=== PATIENT | female | born 1930 | race Caucasian/White ===

== ENCOUNTER → 2016-11-20 | Outpatient (CLI) | payer MEDICARE, BC, OTHER ==
--- NOTE | 2016-11-20 18:24 | CT ---
EXAMINATION TYPE: CT CervThorLumbar spine wo con DATE OF EXAM: 11/20/2016 5:31 PM COMPARISON: 09/18/2016 CT scan cervical spine HISTORY: Pt states of c-spine fx in July of 2016. C/O back pain. CT DLP: 1188.4 mGycm Automated exposure control for dose reduction was used. FINDINGS: Multiple axial sections were obtained from the level of the skull base to the S3 vertebral body with no contrast. There is some sclerosis in this C 2 vertebral body with minimal callus related to a healing nondispla marquis fracture of the base of the odontoid process. The skull base is intact. There is moderate narrowing of the disc spaces from C4 to C7 with spurring of the endplates. Facet monty ints show hypertrophic change in the cervical spine. There is osteopenia. The thoracic vertebra show no compression fracture. There is no evidence of thoracic paraspinal mass. The posterior elements are intact in the thoracic spine. There is ordinary mild facet arthropathy in the mid and lower thoracic spine. There is a mild thoracic dextro scoliosis and a compensatory mild thoracolumbar levoscoliosis. There is degenerative disc space narrowing throughout the lumbar spine with spurring of the endplates. I se e no compression fracture. There is multilevel hypertrophic lumbar facet arthropathy. The sacroiliac joints appear normal. CONCLUSION: Healing C2 fracture without change in position compared to old exam. Multilevel cervical spondylotic changes. Multilevel thoracic and lumbar spondylotic changes. Mild sco liotic deformity. No acute fracture seen. Osteopenia. No focal bone destruction seen. IMPRESSION:
== END | disposition home or self-care (01) ==
LOC: RADCTMAIN 17:03
PROVIDERS: ATTEND Family Medicine
DX: M54.5 Low back pain (principal); S12.001D Unspecified nondisplaced fracture of first cervical vertebra, subsequent encounter for fracture with routine healing; Z91.81 History of falling; S12.100D Unspecified displaced fracture of second cervical vertebra, subsequent encounter for fracture with routine healing; M85.80 Other specified disorders of bone density and structure, unspecified site
CPT/HCPCS: 72125; 72128; 72131

== ENCOUNTER → 2017-01-27 | Outpatient (CLI) | payer MEDICARE, BC, OTHER ==
--- NOTE | 2017-01-27 09:08 | CT ---
EXAMINATION TYPE: CT cervical spine wo con DATE OF EXAM: 01/27/2017 8:40 AM COMPARISON: CT cervical spine November 20, 2016. HISTORY: Patient complains of continued neck pain post fall with positive fracture in July 2016. CT DLP: 394 mGycm. Automated Exposure Control for Dose Reduction was Utilized. TECHNIQUE: CT scan of the cervical spine is obtained without contrast, axial images are obtained, sa gittal and coronal reformatted images are also reviewed. FINDINGS: Cervical spine is visualized in its entirety from C1 through upper thoracic levels, redemon strates straightened alignment without evidence of new acute fracture or dislocation. Prevertebral s oft tissue appears within normal limits. The C1-C2 articulation is unchanged on the coronal images. There is persistent sclerosis at base of odontoid consistent with healing or healed fracture. There i s continued diminished visualization of linear lucency consistent with healing progression. Vertebral body heights are maintained. There is moderate to severe disc space narrowing with moderate spurring at C4-C5 through C6-C7 levels. Small posterior disc herniation at C5-C6 and C6-C7 level are redemonstrated on axial and sagittal images and felt stable. Review of axial images shows small central disc protrusion and right-sided uncovertebral facet degene rative changes at C2-C3 level. Bilateral neural foramina are patent. Axial images at C3-C4 level show bilateral uncovertebral facet degenerative changes and posterior dis c herniation C3-C4 level on axial image 47. Mild to moderate bilateral neural foraminal narrowing is redemonstrated. Axial images at C4-C5 level show right-sided uncovertebral facet degenerative changes with posterior and marginal spurring and posterior disc herniation . There is stable moderate right greater than lef t neural foraminal narrowing at this level. Axial images at C5-C6 level shows central spur disc complex effacing anterior thecal sac with margina l spurring at C5-C6 level on axial image 57. Moderate bilateral neural foraminal narrowing at this le narda is redemonstrated. Axial images at C6-C7 level show posterior spur disc complex effacing anterior thecal sac. Mild to mo derate bilateral neural foraminal narrowing at this level is identified. Axial images at C7-T1 level show right-sided marginal spurring, bilateral neural foramina remain dobbs nt. Spinal canal is preserved. Lung apices remain clear. IMPRESSION: Healing progression of type II odontoid fracture. Alignment is stable. Multilevel degene rative changes in the cervical spine are seen as detailed above without significant change or progres evelio from most recent CT.
== END | disposition home or self-care (01) ==
LOC: RADCTMAIN 08:15
PROVIDERS: ATTEND Specialist
DX: S12.110D Anterior displaced Type II dens fracture, subsequent encounter for fracture with routine healing (principal); M47.812 Spondylosis without myelopathy or radiculopathy, cervical region
CPT/HCPCS: 72125

== ENCOUNTER 2017-07-20 13:21 | Inpatient (IN) | payer MEDICARE, BC, OTHER ==
--- NOTE | 2017-07-20 14:53 | XR ---
EXAMINATION TYPE: XR Hip RT and AP Pelvis DATE OF EXAM: 07/20/2017 COMPARISON: NONE HISTORY: Pain after fall injury. TECHNIQUE: A single AP view of the pelvis is obtained. Two views of the right hip are obtained. FINDINGS: Samish osseous structures are demineralized. There is acute minimally displaced intertrocha nteric fracture right proximal femur. No hip joint dislocation is seen. There is moderate axial joint space loss in both hips. Remainder of pelvis shows no additional acute fracture or dislocation. Sacroiliac joints are maintain ed. Surgical sutures and clips overlie the right lower quadrant. Numerous coils from ventral wall her saad repair overlie the lower abdomen and pelvis. IMPRESSION: There is acute comminuted minimally displaced intertrochanteric fracture right proximal femur. (Initial encounter closed type post traumatic fracture)
--- NOTE | 2017-07-20 14:55 | XR ---
EXAMINATION TYPE: XR chest 1V DATE OF EXAM: 07/20/2017 COMPARISON: 06/01/2012 HISTORY: Pain TECHNIQUE: Single frontal view of the chest is obtained. FINDINGS: Right-sided consolidation and pleural effusion seen with cardiomegaly and atherosclerotic change aorta. No pneumothorax. Underlying venous congestion not excluded. IMPRESSION: 1. Right lower lobe consolidation with bilateral small effusion. Correlate for pneumonia versus CHF.
[2017-07-20 15:00] LABS: CH 30.1; HCT 38.3 % (34.0-46.0); HDW 2.25; HGB 12.4 gm/dL (11.4-16.0); Lymphocytes % (A) 20 %; MCH 30.6 pg (25.0-35.0); MCHC 32.5 g/dL (31.0-37.0); MCV 94.3 fL (80.0-100.0); Mean Platelet Volume 6.6; Neutrophils % (A) 70 %; RBC 4.07 m/uL (3.80-5.40); RDW 13.8 % (11.5-15.5); WBC 8.2 k/uL (3.8-10.6); WBC (Perox) 8.47
[2017-07-20 15:01] LABS: Basophils % (A) 0 %; Eosinophils # (A) 0.3 k/uL (0-0.7); Eosinophils % (A) 3 %; Luc # (Auto) 0.14; Luc % (Auto) 2; Lymphocytes # (A) 1.6 k/uL (1.0-4.8); Monocytes # (A) 0.4 k/uL (0-1.0); Monocytes % (A) 5 %; Neutrophils # (A) 5.7 k/uL (1.3-7.7)
--- NOTE | 2017-07-20 15:02 | ED ---
General Adult HPI - General Stated complaint: Fall Time Seen by Provider: 07/20/17 13:29 Source: RN notes reviewed - History of Present Illness Initial comments: Patient 87-year-old female who presents emergency room today by EMS, the chief complaint of a fall that occurred just prior to arrival. She does admit that she was getting up to go into the kitchen. She states she was heading towards her walker when she lays gave out and she fell down onto the right side. She does not that she is on xeralto. She states she did hit her head did not lose consciousness. Does admit to pain to the right groin and hip area. She denies any other complaints or associated symptoms. Patient denies any recent fever, chills, shortness of breath, chest pain, back pain, abdominal pain, nausea or vomiting, numbness or tingling, dysuria or hematuria, constipation or diarrhea, headaches or visual changes, or any other complaints. - Related Data Home Medications Medication Instructions Recorded Confirmed Albuterol Inhaler [Ventolin Hfa 2 puff INHALATION Q4H PRN 07/20/17 07/20/17 Inhaler] Amantadine HCl [Symmetrel] 100 mg PO BID@0800,1200 07/20/17 07/20/17 Carbidopa/Levodopa [Sinemet 25-100 1 tab PO BID 07/20/17 07/20/17 mg] Darifenacin Hydrobromide [Enablex] 15 mg PO DAILY 07/20/17 07/20/17 Furosemide [Lasix] 40 mg PO DAILY 07/20/17 07/20/17 Glimepiride [Amaryl] 1 mg PO AC-BRKFST 07/20/17 07/20/17 HYDROcodone/APAP 7.5-325MG [[place] 1 tab PO Q8H PRN 07/20/17 07/20/17 7.5-325] Lactulose 10 - 20 gm PO BID PRN 07/20/17 07/20/17 Metoprolol Tartrate [Lopressor] 25 mg PO BID 07/20/17 07/20/17 Metoprolol Tartrate [Lopressor] 50 mg PO BID 07/20/17 07/20/17 Mupirocin [Mupirocin 2%] 1 applic TOPICAL TID 07/20/17 07/20/17 Nystatin 100,000Unit/gm Cream 1 applic TOPICAL BID 07/20/17 07/20/17 [Mycostatin Cream] Ondansetron [Zofran] 4 mg PO Q8HR PRN 07/20/17 07/20/17 Potassium Chloride [Klor-Con 20] 20 meq PO BID 07/20/17 07/20/17 Rivaroxaban [Xarelto] 15 mg PO DAILY 07/20/17 07/20/17 Allergies Allergy/AdvReac Type Severity Reaction Status Date / Time iodine Allergy Anaphylaxis Verified 07/20/17 14:38 Sulfa (Sulfonamide Allergy Anaphylaxis Verified 07/20/17 14:38 Antibiotics) Review of Systems ROS Statement: Those systems with pertinent positive or pertinent negative responses have been documented in the HPI. ROS Other: All systems not noted in ROS Statement are negative. Past Medical History Past Medical History: Coronary Artery Disease (CAD), Diabetes Mellitus, Hypertension Additional Past Medical History / Comment(s): parkinsons, colon ca and resection History of Any Multi-Drug Resistant Organisms: None Reported Additional Past Surgical History / Comment(s): colon resection, knee x 2 Past Psychological History: No Psychological Hx Reported Smoking Status: Never smoker Past Alcohol Use History: None Reported Past Drug Use History: None Reported General Exam - General Exam Comments Initial Comments: General: The patient is awake and alert, in no distress, and does not appear acutely ill. Eye: Pupils are equal, round and reactive to light, extra-ocular movements are intact. No nystagmus. There is normal conjunctiva bilaterally. No signs of icterus. Ears, nose, mouth and throat: There are moist mucous membranes and no oral lesions. Neck: The neck is supple, there is no tenderness or JVD. Cardiovascular: There is a regular rate and rhythm. No murmur, rub or gallop is appreciated. Respiratory: Lungs are clear to auscultation, respirations are non-labored, breath sounds are equal. No wheezes, stridor, rales, or rhonchi. Gastrointestinal: Soft, non-distended, non-tender abdomen without masses or organomegaly noted. There is no rebound or guarding present. No CVA tenderness. Bowel sounds are unremarkable. Musculoskeletal: Does have shortening rotation of the right leg. Does have tenderness over the lateral aspect of the right hip. Sensations are intact pulses equal bilateral 2+. Neurological: A&O x 3. CN II-XII intact, There are no obvious motor or sensory deficits. Coordination appears grossly intact. Speech is normal. Skin: Skin is warm and dry and no rashes or lesions are noted. Psychiatric: Cooperative, appropriate mood & affect, normal judgment. Medical Decision Making - Medical Decision Making Patient's x-ray reviewed does show evidence of a right-sided hip fracture. Patient's labs currently pending. Patient will be admitted. Patient was a patient of Dr. Mendoza. His chest x-ray shows possible effusion versus. Patient admits that she's recently placed on a water pill for leg swelling. She does believe that this swelling has improved. Patient's labs been reviewed no elevated white count. No fever. Chest x-ray findings patient be consistent with effusion. Patient will be admitted for hip fracture. - Lab Data Result diagrams: 07/20/17 14:45 07/20/17 14:45 Lab Results 07/20/17 07/20/17 07/20/17 Range/Units 14:45 14:45 14:45 WBC 8.2 (3.8-10.6) k/uL RBC 4.07 (3.80-5.40) m/uL Hgb 12.4 (11.4-16.0) gm/dL Hct 38.3 (34.0-46.0) % MCV 94.3 (80.0-100.0) fL MCH 30.6 (25.0-35.0) pg MCHC 32.5 (31.0-37.0) g/dL RDW 13.8 (11.5-15.5) % Plt Count 206 (150-450) k/uL Neutrophils % 70 % Lymphocytes % 20 % Monocytes % 5 % Eosinophils % 3 % Basophils % 0 % Neutrophils # 5.7 (1.3-7.7) k/uL Lymphocytes # 1.6 (1.0-4.8) k/uL Monocytes # 0.4 (0-1.0) k/uL Eosinophils # 0.3 (0-0.7) k/uL Basophils # 0.0 (0-0.2) k/uL PT 13.2 H (9.0-12.0) sec INR 1.3 H (<1.2) APTT 26.9 (22.0-30.0) sec Sodium 139 (137-145) mmol/L Potassium 4.2 (3.5-5.1) mmol/L Chloride 102 (98-107) mmol/L Carbon Dioxide 26 (22-30) mmol/L Anion Gap 11 mmol/L BUN 31 H (7-17) mg/dL Creatinine 1.30 H (0.52-1.04) mg/dL Est GFR (MDRD) Af Amer 47 (>60 ml/min/1.73 sqM) Est GFR (MDRD) Non-Af 39 (>60 ml/min/1.73 sqM) Glucose 104 H (74-99) mg/dL Calcium 8.9 (8.4-10.2) mg/dL Total Bilirubin 1.0 (0.2-1.3) mg/dL AST 21 (14-36) U/L ALT 20 (9-52) U/L Alkaline Phosphatase 81 (38-126) U/L Total Protein 6.6 (6.3-8.2) g/dL Albumin 3.8 (3.5-5.0) g/dL Disposition Clinical Impression: Hip fracture Disposition: ADMITTED IP TO THIS HOSP Condition: Stable Referrals: Rafael Douglass III, MD [Primary Care Provider] - 1-2 days Time of Disposition: 15:38
[2017-07-20 15:08] LABS: INR 1.3 (<1.2); Partial Thromboplastin Time 26.9 sec (22.0-30.0); Prothrombin Time 13.2 sec (9.0-12.0)
--- NOTE | 2017-07-20 15:17 | CT ---
EXAMINATION TYPE: CT brain wo con DATE OF EXAM: 07/20/2017 COMPARISON: CT brain 09/18/2016 HISTORY: Fall injury today. CT DLP: 1046 mGycm Automated exposure control for dose reduction was used. Helical acquisition through the brain. FINDINGS: No significant interval change. There is no hemorrhage or hydrocephalus. Cerebral vascular calcificat ions are present. Brain density is stable. Calvarium is intact. Minimal inflammatory change present r ight maxillary sinus. Mastoid air cells are well aerated. IMPRESSION: STABLE EXAM, NO ACUTE ABNORMALITY.
[2017-07-20 15:26] LABS: Potassium 4.2 mmol/L (3.5-5.1)
[2017-07-20 15:27] LABS: Calcium 8.9 mg/dL (8.4-10.2); Total Protein 6.6 g/dL (6.3-8.2)
[2017-07-20] MEDS ORDERED: ONDANSETRON 4 MG/2 ML VIAL IVP PRN (15:58)
[2017-07-20] MEDS ORDERED: NALOXONE 0.4 MG/ML 1 ML VIAL IV PRN (15:58)
[2017-07-20] MEDS: HYDROmorphone 1 MG/ML 1 ML SYRINGE IV PRN (16:35)
[2017-07-20 18:03] LABS: Appearance,Urine Clear (Clear); Bilirubin,Urine Negative (Negative); Glucose,Urine (UA) Negative (Negative); Ketones,Urine Negative (Negative); Leukocyte Esterase,Urine Negative (Negative); Nitrite,Urine Negative (Negative); Protein,Urine Negative (Negative); Specific Gravity,Urine 1.006 (1.001-1.035); UA Billing (MACRO vs. MICRO) CHEM; Urobilinogen,Urine <2.0 mg/dL (<2.0)
[2017-07-20 19:57] LABS: Glucose,Whole Blood 96 mg/dL (75-99)
[2017-07-21] MEDS: HYDROmorphone 1 MG/ML 1 ML SYRINGE IV PRN ×2 (07:07→12:08)
[2017-07-21 08:09] LABS: Glucose,Whole Blood 114 mg/dL (75-99)
[2017-07-21 08:23] LABS: Basophils % (A) 0 %; CH 30.6; CHCM 32.4; Eosinophils # (A) 0.1 k/uL (0-0.7); Eosinophils % (A) 1 %; HCT 33.4 % (34.0-46.0); HDW 2.27; HGB 11.2 gm/dL (11.4-16.0); Luc # (Auto) 0.19; Luc % (Auto) 3; Lymphocytes # (A) 1.3 k/uL (1.0-4.8); Lymphocytes % (A) 18 %; MCH 31.8 pg (25.0-35.0); MCHC 33.5 g/dL (31.0-37.0); MCV 95.2 fL (80.0-100.0); Mean Platelet Volume 7.3; Monocytes # (A) 0.5 k/uL (0-1.0); Monocytes % (A) 7 %; Neutrophils # (A) 5.1 k/uL (1.3-7.7); Neutrophils % (A) 71 %; RBC 3.51 m/uL (3.80-5.40); RDW 14.6 % (11.5-15.5); WBC 7.2 k/uL (3.8-10.6); WBC (Perox) 7.45
[2017-07-21 08:29] LABS: Calcium 8.7 mg/dL (8.4-10.2); Potassium 4.6 mmol/L (3.5-5.1); Total Bilirubin 0.9 mg/dL (0.2-1.3); Total Protein 5.8 g/dL (6.3-8.2)
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
--- NOTE | 2017-07-21 08:39 | XR ---
EXAMINATION TYPE: XR chest 1V portable DATE OF EXAM: 07/21/2017 Comparison: 07/20/2017 Clinical History: 87-year-old female pre-op for hip surgery Findings: Heart is upper limits of normal in size. Dextroconvex scoliosis. Atherosclerotic arch calcifications. Mild diffuse interstitial and vascular prominence. Continued small to moderate right pleural effusio n with right basilar opacity. No significant change. Impression: Continued small to moderate right pleural effusion with adjacent right basilar atelectasis and/or inf iltrate. No significant change. Correlate for possible CHF as an etiology versus underlying pneumonia .
[2017-07-21] MEDS ORDERED: IPRATROPIUM-ALBUTEROL 3 ML NEB INHALATION PRN (12:16)
[2017-07-21] MEDS: SODIUM CHLORIDE 0.9% 1,000 ML IV SCH (12:26)
[2017-07-21 12:37] LABS: Hemoglobin A1C 6.1 % (4.2-6.1)
[2017-07-21] MEDS: INSULIN LISPRO (humaLOG) 300 UNIT/3 ML VIAL SQ SCH ×3 (12:41→22:20)
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
[2017-07-21] MEDS: METOPROLOL TARTRATE 50 MG TAB PO SCH ×2 (13:23→22:32)
[2017-07-21] MEDS: METOPROLOL TARTRATE 25 MG TAB PO SCH ×2 (13:23→22:32)
[2017-07-21] MEDS: IPRATROPIUM-ALBUTEROL 3 ML NEB INHALATION SCH ×3 (15:35→19:42)
[2017-07-21] MEDS: MUPIROCIN 2% OINT 22 GM TUBE TOPICAL SCH ×2 (16:09→22:32)
[2017-07-21] MEDS ORDERED: LACTATED RINGERS 1,000 ML IV ONE (16:11)
[2017-07-21 16:17] LABS: Glucose,Whole Blood 83 mg/dL (75-99)
[2017-07-21] MEDS ORDERED: NALOXONE 0.4 MG/ML 1 ML VIAL IV PRN (16:36)
[2017-07-21] MEDS ORDERED: ONDANSETRON 4 MG/2 ML VIAL IVP PRN (16:36)
[2017-07-21] MEDS ORDERED: HYDROmorphone 1 MG/ML 1 ML SYRINGE IVP PRN ×3 (16:36)
[2017-07-21] MEDS ORDERED: hydrOXYzine PAMOATE 25 MG CAP PO PRN (16:36)
[2017-07-21] MEDS ORDERED: DIAZEPAM 5 MG TAB PO PRN ×2 (16:36)
[2017-07-21] MEDS ORDERED: MAGNESIUM HYDROXIDE 2,400 MG/10 ML CUP PO PRN (16:36)
[2017-07-21] MEDS ORDERED: HYDROcodone/APAP 5-325MG 1 EACH TAB PO PRN (16:36)
[2017-07-21 16:44] VITALS: BMI 35.9
[2017-07-21] MEDS ORDERED: PHENYLEPHRINE-0.9% NACL SYG 1 MG/10 ML SYRINGE ONE (16:44)
[2017-07-21] MEDS ORDERED: PROPOFOL 10 MG/ML 20 ML VIAL IV ONE (16:44)
[2017-07-21] MEDS: ceFAZolin 2 GM in SODIUM CHLORIDE 0.9% 100 ML IVPB SCH (16:44)
[2017-07-21] MEDS ORDERED: SUCCINYLCHOLINE CHLORIDE 100 MG/5 ML SYR IV ONE (16:44)
[2017-07-21] MEDS ORDERED: LIDOCAINE 1% INJ 10MG/ML (20 ML MDV) ONE (16:44)
[2017-07-21] MEDS ORDERED: fentaNYL (PF) 50 MCG/ML 2 ML AMP ONE (16:44)
[2017-07-21] MEDS ORDERED: ceFAZolin 1,000 MG in SODIUM CHLORIDE 0.9% 1,000 ML IRRIGATION ONE (17:31)
--- NOTE | 2017-07-21 17:57 | P.OP ---
Date of Procedure: 07/21/17 Preoperative Diagnosis: 4 part intratrochanteric fracture right hip Postoperative Diagnosis: 4 part intratrochanteric fracture right hip Procedure(s) Performed: Close reduction and intramedullary hip screw fixation of the right hip Implants: [employer] intertan nail 125, 11.5 mm x 18 cm. [employer] Intertan integrated interlocking lag screw, 100 mm lag screw, 95 mm compression screw. [employer] L-P screw, 5.0 mm x 35 mm. Anesthesia: GETA Surgeon: Brooks Kraft Plug Assembler #1: Gill Brown Estimated Blood Loss (ml): 200 Pathology: none sent Condition: stable Disposition: PACU Indications for Procedure: This is an 87-year-old female that slipped and fell at home. X-rays demonstrated a four-part intertrochanteric fracture of her right hip. After discussing the surgical and nonsurgical treatment options with her and her family at length, I recommended a closed reduction with intramedullary hip screw fixation of the right hip. Consent was obtained. Operative Findings: The operative findings are consistent with a four-part intertrochanteric fracture of the right hip. Description of Procedure: The patient was seen in the preoperative area, consent was reviewed, and the operative site was marked with a skin marker. The patient was brought to the operating room and placed on the operating room table. Anesthesia was administered by the anesthesia department. 2 g of Ancef were administered intravenously. The patient was placed supine on the fracture table with the fractured extremity in traction boot. His other extremity was placed in a well leg muniz and his bony prominences were padded. A universal timeout was then performed which confirmed the patient's name, surgical site, ALLERGIES, and consent. Fracture reduction was performed with traction and adduction maneuver which was confirmed with fluoroscopy. After reduction was performed, his extremity was then prepped and draped in the usual sterile fashion. Utilizing fluoroscopy to identify the tip of the greater trochanter, a 3 cm incision was made just proximal to the greater trochanter. Utilizing a curved awl, the starting hole was created at the tip of the greater trochanter and centralized in the AP plane. These locations were confirmed by fluoroscopy. Guidewire was then inserted down the medullary canal. Sequentially reaming of the femur was performed to 13 mm distally and 17 mm proximally. After reaming, appropriate size nail was inserted over the guidewire. The nail was inserted to the appropriate depth and the guidewire was removed. The lag screw targeting device was placed in the jig and a small skin incision was made and the targeting guide was placed down to bone. Utilizing the distally threaded guidewire, the guidewire was placed in the appropriate position in the femoral head, both anterior, posterior and mediolateral. Next, the drill for the second screw was then placed through the guide and drilled to the appropriate depth. The guidewire was measured and the appropriate depth was then reamed. The final size screw was placed to the appropriate depth. Traction was released and the fracture site was compressed with the aid of the second screw. The proximal drill guide was then removed and the distal drill guide was then inserted in the jig. Skin incision was made down to bone and the distal drill guide was then placed. Distal hole was then drilled and measured to the appropriate depth. Distal screw was then placed. The entire jig was then removed and final fluoroscopic x-rays were obtained. The wounds were then irrigated copiously with saline solution. Fascia was closed with 0-Vicryl. Subcutaneous tissues were closed with 2-0 Vicryl and the skin was closed with saritha. Sterile dressings were applied. The patient was transported to the recovery room in stable condition. The chiropractic assistant DYLAN Angel was required due the complexity of the surgery and the need for skilled manager surgical.
[2017-07-21] MEDS: HYDROmorphone 1 MG/ML 1 ML SYRINGE IVP ONE ×2 (18:24→18:56)
[2017-07-21 20:27] LABS: Glucose,Whole Blood 112 mg/dL (75-99)
[2017-07-21 20:58] LABS: Basophils % (A) 0 %; CH 30.1; CHCM 31.2; Eosinophils # (A) 0.1 k/uL (0-0.7); Eosinophils % (A) 1 %; HCT 32.1 % (34.0-46.0); HDW 2.27; HGB 10.4 gm/dL (11.4-16.0); Luc # (Auto) 0.23; Luc % (Auto) 2; Lymphocytes # (A) 1.6 k/uL (1.0-4.8); Lymphocytes % (A) 14 %; MCH 31.3 pg (25.0-35.0); MCHC 32.3 g/dL (31.0-37.0); MCV 96.9 fL (80.0-100.0); Mean Platelet Volume 6.8; Monocytes # (A) 0.7 k/uL (0-1.0); Monocytes % (A) 6 %; Neutrophils # (A) 8.6 k/uL (1.3-7.7); Neutrophils % (A) 77 %; RBC 3.32 m/uL (3.80-5.40); RDW 13.9 % (11.5-15.5); WBC 11.2 k/uL (3.8-10.6)
[2017-07-21] MEDS: NYSTATIN 100,000UNIT/GM CREAM 30 GM TUBE TOPICAL SCH (22:32)
[2017-07-21] MEDS: CARBIDOPA-LEVODOPA 25-100 MG 1 EACH TAB PO SCH (22:32)
[2017-07-21] MEDS: SENNOSIDES-DOCUSATE SODIUM 1 EACH TAB PO SCH (22:33)
[2017-07-22] MEDS: SODIUM CHLORIDE 0.9% 1,000 ML IV SCH (00:55)
--- NOTE | 2017-07-22 05:52 | FL ---
EXAMINATION TYPE: FL guidance operating room, XR Hip Complete RT DATE OF EXAM: 07/21/2017 CLINICAL HISTORY: Right hip fracture TECHNIQUE: Fluoroscopy.. Intraoperative limited views right hip. COMPARISON: Pelvic and right hip x-ray from yesterday.. FINDINGS: Fluoroscopic guidance was provided during open reduction internal fixation procedure perfo rmed by Dr. Kraft. A total of 1 minute 3 seconds of fluoroscopic time was utilized during the pro cedure and 2 spot intraoperative images are acquired. Intraoperative images acquired show placement of intramedullary sue with distal transverse fixating s crew and single larger femoral neck fixating screws through intertrochanteric fracture right proxima l femur. Satisfactory alignment is seen after reduction and fixation on intraoperative images frederick ahmadi IMPRESSION: As Above.
[2017-07-22 07:13] LABS: Glucose,Whole Blood 84 mg/dL (75-99)
[2017-07-22 08:02] LABS: Basophils % (A) 0 %; CH 30.8; CHCM 32.4; Eosinophils % (A) 0 %; HDW 2.36; HGB 9.2 gm/dL (11.4-16.0); Luc # (Auto) 0.22; Luc % (Auto) 3; Lymphocytes # (A) 1.3 k/uL (1.0-4.8); Lymphocytes % (A) 16 %; MCH 30.4 pg (25.0-35.0); MCHC 31.7 g/dL (31.0-37.0); MCV 95.7 fL (80.0-100.0); Mean Platelet Volume 7.3; Monocytes # (A) 0.6 k/uL (0-1.0); Monocytes % (A) 8 %; Neutrophils # (A) 5.7 k/uL (1.3-7.7); Neutrophils % (A) 73 %; RBC 3.02 m/uL (3.80-5.40); WBC 7.8 k/uL (3.8-10.6); WBC (Perox) 8.55
[2017-07-22 08:18] LABS: Calcium 8.5 mg/dL (8.4-10.2); Potassium 4.4 mmol/L (3.5-5.1)
[2017-07-22] MEDS: IPRATROPIUM-ALBUTEROL 3 ML NEB INHALATION SCH ×4 (08:42→19:38)
[2017-07-22] MEDS: INSULIN LISPRO (humaLOG) 300 UNIT/3 ML VIAL SQ SCH ×4 (08:48→21:33)
[2017-07-22] MEDS: METOPROLOL TARTRATE 50 MG TAB PO SCH ×2 (08:49→21:33)
[2017-07-22] MEDS: METOPROLOL TARTRATE 25 MG TAB PO SCH ×2 (08:49→21:33)
[2017-07-22] MEDS: NYSTATIN 100,000UNIT/GM CREAM 30 GM TUBE TOPICAL SCH ×2 (08:50→21:34)
[2017-07-22] MEDS: CARBIDOPA-LEVODOPA 25-100 MG 1 EACH TAB PO SCH ×2 (08:50→21:33)
[2017-07-22] MEDS: FUROSEMIDE 10 MG/ML 4 ML VIAL IV SCH (08:50)
[2017-07-22] MEDS: MUPIROCIN 2% OINT 22 GM TUBE TOPICAL SCH ×3 (08:50→21:34)
[2017-07-22] MEDS: AMANTADINE HCL 100 MG CAP PO SCH ×2 (08:51→13:39)
--- NOTE | 2017-07-22 09:05 | P.PN ---
Subjective Principal diagnosis: Right intertrochanteric hip fracture, status post closed reduction an intramedullary hip screw fixation This is an 87-year-old female who sustained a right intertrochanteric hip fracture on 07/20/2017. Patient is status post closed reduction an intramedullary hip screw fixation. This is postoperative day #1. Patient states she has some soreness to the right hip. Patient has not been out of bed yet. Patient denies any numbness, weakness, tingling, pain, fever/chills. Objective - Vital Signs Vital signs: Vital Signs Temp 99.3 F 07/22/17 07:24 Pulse 90 07/22/17 08:56 Resp 18 07/22/17 07:24 BP 123/59 07/22/17 07:24 Pulse Ox 92 L 07/22/17 08:46 Intake & Output 07/21/17 07/22/17 07/22/17 18:59 06:59 18:59 Intake Total 826 155 Output Total 400 340 Balance 426 -185 Weight 83.461 kg 88 kg Intake: IV 751 5 Intake, IV Titration 75 Amount Sodium Chloride 0.9% 1, 75 000 ml @ 75 mls/hr IV . [id number] [facility] Rx#:[id number] Oral 150 Output: Urine 200 340 Estimated Blood Loss 200 Other: Voiding Method Indwelling Catheter Indwelling Catheter - Exam Patient is alert and oriented 3 and is in no acute distress. On exam of the right lower extremity incisions are clean, dry and intact. There is mild drainage from the incisions. Calf is soft and nontender. Patient has full foot and ankle motion. Neurovascular status to the right lower extremity is intact. - Labs CBC & Chem 7: 07/22/17 07:27 07/22/17 07:27 Labs: Abnormal Lab Results - Last 24 Hours (Table) 07/21/17 07/21/17 07/22/17 Range/Units 20:25 20:47 07:27 WBC 11.2 H (3.8-10.6) k/uL RBC 3.32 L 3.02 L (3.80-5.40) m/uL Hgb 10.4 L 9.2 L (11.4-16.0) gm/dL Hct 32.1 L 29.0 L (34.0-46.0) % Neutrophils # 8.6 H (1.3-7.7) k/uL Sodium (137-145) mmol/L BUN (7-17) mg/dL Creatinine (0.52-1.04) mg/dL POC Glucose (mg/dL) 112 H (75-99) mg/dL 07/22/17 Range/Units 07:27 WBC (3.8-10.6) k/uL RBC (3.80-5.40) m/uL Hgb (11.4-16.0) gm/dL Hct (34.0-46.0) % Neutrophils # (1.3-7.7) k/uL Sodium 136 L (137-145) mmol/L BUN 35 H (7-17) mg/dL Creatinine 1.22 H (0.52-1.04) mg/dL POC Glucose (mg/dL) (75-99) mg/dL Assessment and Plan (1) Intertrochanteric fracture of right hip Status: Acute (2) Status post hip surgery Status: Acute Plan: #1. Toe-touch weightbearing to the right lower extremity with a walker. #2. Continue routine postoperative care #3. Daily dressing changes. #4. Continue anticoagulation. #5. Will continue to follow the patient closely. Anticipate discharge to rehab in the next couple of days.
[2017-07-22] MEDS: ceFAZolin 2 GM in SODIUM CHLORIDE 0.9% 100 ML IVPB SCH (10:00)
--- NOTE | 2017-07-22 11:19 | P.PN ---
Subjective Patient was admitted for right hip fracture, sepsis and underwent surgery patient had pulmonary edema as today because of which patient is on IV Lasix at this time. We will obtain a chest x-ray today. Patient is excessively sleepy because of diazepam instructed to nursing staff to avoid narcotic medications since did will use tramadol for pain he cannot use other nonsteroidal anti-inflammatory medications because of borderline kidney function. Which actually improved compared to yesterday. Objective - Vital Signs Vital signs: Vital Signs Temp 99.3 F 07/22/17 07:24 Pulse 90 07/22/17 08:56 Resp 18 07/22/17 07:24 BP 123/59 07/22/17 07:24 Pulse Ox 92 L 07/22/17 08:46 Intake & Output 07/21/17 07/22/17 07/22/17 18:59 06:59 18:59 Intake Total 826 155 Output Total 400 340 Balance 426 -185 Weight 83.461 kg 88 kg Intake: IV 751 5 Intake, IV Titration 75 Amount Sodium Chloride 0.9% 1, 75 000 ml @ 75 mls/hr IV . [id number] [facility] Rx#:[id number] Oral 150 Output: Urine 200 340 Estimated Blood Loss 200 Other: Voiding Method Indwelling Catheter Indwelling Catheter Indwelling Catheter - Exam GENERAL: The patient is alert and oriented x3, not in any acute distress. Well developed, well nourished. HEENT: Pupils are round and equally reacting to light. EOMI. No scleral icterus. No conjunctival pallor. Normocephalic, atraumatic. No pharyngeal erythema. No thyromegaly. CARDIOVASCULAR: S1 and S2 present. No murmurs, rubs, or gallops. Patient does have minimally elevated JVD PULMONARY: Chest is clear to auscultation, no wheezing or crackles. ABDOMEN: Soft, nontender, nondistended, normoactive bowel sounds. No palpable organomegaly. MUSCULOSKELETAL: Deferred to orthopedic surgery EXTREMITIES: No cyanosis, clubbing, or pedal edema. NEUROLOGICAL: Gross neurological examination did not reveal any focal deficits. SKIN: No rashes. - Labs CBC & Chem 7: 07/22/17 07:27 07/22/17 07:27 Labs: Abnormal Lab Results - Last 24 Hours (Table) 07/21/17 07/21/17 07/22/17 Range/Units 20:25 20:47 07:27 WBC 11.2 H (3.8-10.6) k/uL RBC 3.32 L 3.02 L (3.80-5.40) m/uL Hgb 10.4 L 9.2 L (11.4-16.0) gm/dL Hct 32.1 L 29.0 L (34.0-46.0) % Neutrophils # 8.6 H (1.3-7.7) k/uL Sodium (137-145) mmol/L BUN (7-17) mg/dL Creatinine (0.52-1.04) mg/dL POC Glucose (mg/dL) 112 H (75-99) mg/dL 07/22/17 Range/Units 07:27 WBC (3.8-10.6) k/uL RBC (3.80-5.40) m/uL Hgb (11.4-16.0) gm/dL Hct (34.0-46.0) % Neutrophils # (1.3-7.7) k/uL Sodium 136 L (137-145) mmol/L BUN 35 H (7-17) mg/dL Creatinine 1.22 H (0.52-1.04) mg/dL POC Glucose (mg/dL) (75-99) mg/dL Assessment and Plan Plan: #1 postoperative day 1 right hip surgery. Will use tramadol for pain to avoid opiate and algesia. #2 congestive heart failure: Appears to have improved a little bit will often a chest x-ray, continue with IV Lasix daily #3 atrial fibrillation: Rate controlled patient's rate control medications need to be continued anti-correlation was reinitiated today #4 coronary artery disease next #5 asthma, chronic and not in acute exacerbation #6 diabetes with us type II hold off oral hyperglycemic agents use sliding scale insulin #7 multiple falls in the past patient will need PT and OT evaluation most probably will need subacute rehabitation at the time of discharge
[2017-07-22 12:26] LABS: Glucose,Whole Blood 152 mg/dL (75-99)
[2017-07-22] MEDS: traMADol 50 MG TAB PO PRN ×2 (13:38→21:38)
[2017-07-22 17:17] LABS: Glucose,Whole Blood 187 mg/dL (75-99)
[2017-07-22] MEDS: RIVAROXABAN 15 MG TAB PO SCH (17:43)
[2017-07-22 20:34] LABS: Glucose,Whole Blood 203 mg/dL (75-99)
[2017-07-22] MEDS: SENNOSIDES-DOCUSATE SODIUM 1 EACH TAB PO SCH (21:33)
[2017-07-23 07:13] LABS: Glucose,Whole Blood 155 mg/dL (75-99)
[2017-07-23] MEDS: HYDROcodone/APAP 5-325MG 1 EACH TAB PO PRN ×2 (07:38→13:47)
[2017-07-23] MEDS: INSULIN LISPRO (humaLOG) 300 UNIT/3 ML VIAL SQ SCH ×4 (07:40→20:31)
[2017-07-23] MEDS: CARBIDOPA-LEVODOPA 25-100 MG 1 EACH TAB PO SCH ×2 (07:41→20:31)
[2017-07-23] MEDS: FUROSEMIDE 10 MG/ML 4 ML VIAL IV SCH (07:41)
[2017-07-23] MEDS: METOPROLOL TARTRATE 25 MG TAB PO SCH ×2 (07:41→20:34)
[2017-07-23] MEDS: AMANTADINE HCL 100 MG CAP PO SCH ×2 (07:41→12:17)
[2017-07-23] MEDS: METOPROLOL TARTRATE 50 MG TAB PO SCH ×2 (07:42→20:32)
[2017-07-23] MEDS: MUPIROCIN 2% OINT 22 GM TUBE TOPICAL SCH ×3 (07:42→20:32)
[2017-07-23] MEDS: NYSTATIN 100,000UNIT/GM CREAM 30 GM TUBE TOPICAL SCH ×2 (07:43→22:17)
[2017-07-23 07:51] LABS: CH 30.9; CHCM 32.1; HCT 26.3 % (34.0-46.0); HDW 2.34; HGB 8.3 gm/dL (11.4-16.0); MCH 30.6 pg (25.0-35.0); MCHC 31.7 g/dL (31.0-37.0); MCV 96.7 fL (80.0-100.0); Mean Platelet Volume 7.6; RBC 2.72 m/uL (3.80-5.40); RDW 14.9 % (11.5-15.5); WBC 8.6 k/uL (3.8-10.6)
[2017-07-23 08:19] LABS: Calcium 8.2 mg/dL (8.4-10.2); Potassium 4.6 mmol/L (3.5-5.1)
--- NOTE | 2017-07-23 08:30 | P.PN ---
Subjective Principal diagnosis: Right intertrochanteric hip fracture, status post closed reduction an intramedullary hip screw fixation This is an 87-year-old female who sustained a right intertrochanteric hip fracture on 07/20/2017. Patient is status post closed reduction an intramedullary hip screw fixation. This is postoperative day #2. Patient states the right hip is sore, but her pain is controlled. Patient states she was up in a chair yesterday with physical therapy. Patient denies any numbness, weakness, tingling, pain, fever/chills. Objective - Vital Signs Vital signs: Vital Signs Temp 97.8 F 07/22/17 21:22 Pulse 86 07/23/17 07:18 Resp 18 07/23/17 07:18 BP 97/57 07/23/17 07:18 Pulse Ox 95 07/22/17 21:22 Intake & Output 07/22/17 07/23/17 07/23/17 18:59 06:59 18:59 Intake Total 550 Output Total 300 Balance 250 Weight 91.5 kg Intake: Oral 550 Output: Urine 300 Uretheral ([place]) 300 Other: Voiding Method Indwelling Catheter Indwelling Catheter # Voids 450 # Bowel Movements 1 - Exam Patient is alert and oriented 3 and is in no acute distress. On exam of the right lower extremity incisions are clean, dry and intact. There is no drainage from the incisions. Mild soft tissue swelling to the right thigh, but compartments are soft. Calf is soft and nontender. Patient has good foot and ankle motion. Neurovascular status to the right lower extremity is intact. Capillary refill is normal at less than 2 seconds. - Labs CBC & Chem 7: 07/23/17 07:17 07/23/17 07:17 Labs: Abnormal Lab Results - Last 24 Hours (Table) 07/22/17 07/22/17 07/22/17 Range/Units 11:28 17:14 20:32 RBC (3.80-5.40) m/uL Hgb (11.4-16.0) gm/dL Hct (34.0-46.0) % Sodium (137-145) mmol/L BUN (7-17) mg/dL Creatinine (0.52-1.04) mg/dL POC Glucose (mg/dL) 152 H 187 H 203 H (75-99) mg/dL Calcium (8.4-10.2) mg/dL 07/23/17 07/23/17 07/23/17 Range/Units 07:12 07:17 07:17 RBC 2.72 L (3.80-5.40) m/uL Hgb 8.3 L (11.4-16.0) gm/dL Hct 26.3 L (34.0-46.0) % Sodium 133 L (137-145) mmol/L BUN 39 H (7-17) mg/dL Creatinine 1.13 H (0.52-1.04) mg/dL POC Glucose (mg/dL) 155 H (75-99) mg/dL Calcium 8.2 L (8.4-10.2) mg/dL Assessment and Plan (1) Intertrochanteric fracture of right hip Status: Acute (2) Status post hip surgery Status: Acute Plan: #1. Toe-touch weightbearing to the right lower extremity with a walker. #2. Continue routine postoperative care #3. Daily dressing changes. #4. Continue anticoagulation. #5. Will continue to follow the patient closely. Anticipate discharge to rehab when medically stable.
[2017-07-23] MEDS: IPRATROPIUM-ALBUTEROL 3 ML NEB INHALATION SCH ×4 (09:05→21:10)
--- NOTE | 2017-07-23 10:16 | XR ---
EXAMINATION TYPE: XR chest 1V portable DATE OF EXAM: 07/23/2017 COMPARISON: 07/21/2017 HISTORY: Congestive heart failure follow-up TECHNIQUE: Single frontal view of the chest is obtained. FINDINGS: Moderate layering right pleural effusion and small left pleural effusion with gradient eff ect and bibasilar associated airspace disease are noted. Heart is again enlarged. Previously seen dif fuse interstitial prominence is unchanged, mild in degree. Degenerative changes of the thoracic spine and acromioclavicular joint on the right are noted. IMPRESSION: Similar exam to the prior of 07/21/2017 with moderate right and small left pleural effusi ons, associated bibasilar airspace disease that is likely atelectasis, and mild ulnar vascular conges tion. Findings may be on the basis of congestive heart failure as there is redemonstration of cardiom egaly.
[2017-07-23 11:16] LABS: Glucose,Whole Blood 156 mg/dL (75-99)
[2017-07-23 17:10] LABS: Glucose,Whole Blood 173 mg/dL (75-99)
[2017-07-23 17:11] LABS: Basophils % (A) 0 %; CH 29.8; CHCM 31.3; Eosinophils # (A) 0.4 k/uL (0-0.7); Eosinophils % (A) 5 %; HCT 25.9 % (34.0-46.0); HDW 2.35; HGB 8.4 gm/dL (11.4-16.0); Luc # (Auto) 0.23; Luc % (Auto) 3; Lymphocytes # (A) 1.3 k/uL (1.0-4.8); Lymphocytes % (A) 18 %; MCHC 32.3 g/dL (31.0-37.0); MCV 95.8 fL (80.0-100.0); Mean Platelet Volume 7.1; Monocytes # (A) 0.6 k/uL (0-1.0); Monocytes % (A) 9 %; Neutrophils # (A) 4.6 k/uL (1.3-7.7); Neutrophils % (A) 65 %; RBC 2.71 m/uL (3.80-5.40); RDW 14.1 % (11.5-15.5); WBC 7.1 k/uL (3.8-10.6); WBC (Perox) 7.25
[2017-07-23] MEDS: RIVAROXABAN 15 MG TAB PO SCH (17:48)
--- NOTE | 2017-07-23 19:06 | P.PN ---
Subjective Progress note being dictated for Dr. Kirk Interval history:Patient was admitted for right hip fracture, sepsis and underwent surgery patient had pulmonary edema as today because of which patient is on IV Lasix at this time. Patient is excessively sleepy because of diazepam instructed to nursing staff to avoid narcotic medications since did will use tramadol for pain he cannot use other nonsteroidal anti-inflammatory medications because of borderline kidney function. Which actually improved compared to yesterday. 07/23/2017 chest x-ray reporting moderate right and small left pleural effusions , atelectasis and mild vascular congestion/CHF similar to prior x-ray. Continues diuresing on Lasix IV push. Incentive spirometer up to 750. T-max 99.2. Bowel movement yesterday. Good diet intake with no nausea vomiting. PT/ OT. Objective - Vital Signs Vital signs: Vital Signs Temp 98.6 F 07/23/17 07:18 Pulse 84 07/23/17 09:17 Resp 18 07/23/17 07:18 BP 97/57 07/23/17 07:18 Pulse Ox 95 07/23/17 09:07 Intake & Output 07/22/17 07/23/17 07/23/17 18:59 06:59 18:59 Intake Total 550 Output Total 300 Balance 250 Weight 91.5 kg Intake: Oral 550 Output: Urine 300 Uretheral (Greco) 300 Other: Voiding Method Indwelling Catheter Indwelling Catheter # Voids 450 # Bowel Movements 1 - Exam GENERAL: The patient is alert and oriented x3, not in any acute distress. Well developed, well nourished. Sitting up in chair. HEENT: Pupils are round and equally reacting to light. EOMI. No scleral icterus. No conjunctival pallor. Normocephalic, atraumatic. No pharyngeal erythema. No thyromegaly. CARDIOVASCULAR: S1 and S2 present. No murmurs, rubs, or gallops. Patient does have minimally elevated JVD PULMONARY: Chest is clear to auscultation, no wheezing or crackles. ABDOMEN: Soft, nontender, nondistended, normoactive bowel sounds. No palpable organomegaly. MUSCULOSKELETAL: Deferred to orthopedic surgery EXTREMITIES: No cyanosis, clubbing, or pedal edema. NEUROLOGICAL: Gross neurological examination did not reveal any focal deficits. SKIN: No rashes. - Labs CBC & Chem 7: 07/23/17 17:02 09/15/17 07:17 Labs: Abnormal Lab Results - Last 24 Hours (Table) 07/22/17 07/22/17 07/22/17 Range/Units 11:28 17:14 20:32 RBC (3.80-5.40) m/uL Hgb (11.4-16.0) gm/dL Hct (34.0-46.0) % Sodium (137-145) mmol/L BUN (7-17) mg/dL Creatinine (0.52-1.04) mg/dL POC Glucose (mg/dL) 152 H 187 H 203 H (75-99) mg/dL Calcium (8.4-10.2) mg/dL 07/23/17 07/23/17 07/23/17 Range/Units 07:12 07:17 07:17 RBC 2.72 L (3.80-5.40) m/uL Hgb 8.3 L (11.4-16.0) gm/dL Hct 26.3 L (34.0-46.0) % Sodium 133 L (137-145) mmol/L BUN 39 H (7-17) mg/dL Creatinine 1.13 H (0.52-1.04) mg/dL POC Glucose (mg/dL) 155 H (75-99) mg/dL Calcium 8.2 L (8.4-10.2) mg/dL Assessment and Plan Plan: #1right hip surgery. #2 acute congestive heart failure, EF currently unknown #3 atrial fibrillation: Rate controlled patient's rate control medications need to be continued anti-correlation was reinitiated today #4 coronary artery disease next #5 asthma, chronic and not in acute exacerbation #6 diabetes with us type II Plan: Continue on current medication regime ,monitoring and symptomatic treatment. Echo ordered. Continue diuresing another day on Lasix IV push. Cleared by orthopedics for discharge. Discharge planning in progress for [facility] tomorrow. The impression and plan of care has been dictated as directed. : I performed a H&P examination of this patient and discussed the same with the dictator. I agree with the dictator's note. Any additional findings/opinions/ etc. will be noted.
[2017-07-23 20:06] LABS: Glucose,Whole Blood 123 mg/dL (75-99)
[2017-07-23] MEDS: SENNOSIDES-DOCUSATE SODIUM 1 EACH TAB PO SCH (20:31)
[2017-07-23] MEDS: DOCUSATE 100 MG CAP PO SCH (20:35)
[2017-07-23] MEDS: traMADol 50 MG TAB PO PRN (20:46)
[2017-07-23 23:11] VITALS: RESP 16
[2017-07-24 06:37] LABS: Basophils % (A) 0 %; CH 30.6; CHCM 32.1; Eosinophils # (A) 0.4 k/uL (0-0.7); Eosinophils % (A) 7 %; HCT 26.4 % (34.0-46.0); HDW 2.35; HGB 8.2 gm/dL (11.4-16.0); Luc # (Auto) 0.22; Luc % (Auto) 4; Lymphocytes # (A) 1.1 k/uL (1.0-4.8); Lymphocytes % (A) 18 %; MCH 29.8 pg (25.0-35.0); MCHC 31.1 g/dL (31.0-37.0); MCV 95.8 fL (80.0-100.0); Mean Platelet Volume 7.8; Monocytes # (A) 0.5 k/uL (0-1.0); Monocytes % (A) 8 %; Neutrophils # (A) 3.8 k/uL (1.3-7.7); Neutrophils % (A) 64 %; RBC 2.75 m/uL (3.80-5.40); RDW 14.6 % (11.5-15.5); WBC (Perox) 6.52
[2017-07-24 06:50] LABS: Anion Gap 7 mmol/L; Blood Urea Nitrogen 36 mg/dL (7-17); Calcium 8.2 mg/dL (8.4-10.2); Carbon Dioxide 29 mmol/L (22-30); Chloride 96 mmol/L (98-107); Glucose 93 mg/dL (74-99); Non-African American GFR(MDRD) 53 (>60 ml/min/1.73 sqM); Potassium 4.3 mmol/L (3.5-5.1); Sodium 132 mmol/L (137-145)
[2017-07-24 07:16] LABS: Glucose,Whole Blood 104 mg/dL (75-99)
[2017-07-24] MEDS: IPRATROPIUM-ALBUTEROL 3 ML NEB INHALATION SCH ×2 (07:45→11:14)
[2017-07-24 07:57] VITALS: BP 127/60; TEMP 98.1
[2017-07-24] MEDS: INSULIN LISPRO (humaLOG) 300 UNIT/3 ML VIAL SQ SCH ×2 (08:23→12:31)
[2017-07-24] MEDS: NYSTATIN 100,000UNIT/GM CREAM 30 GM TUBE TOPICAL SCH (08:29)
[2017-07-24] MEDS: CARBIDOPA-LEVODOPA 25-100 MG 1 EACH TAB PO SCH (08:29)
[2017-07-24] MEDS: MUPIROCIN 2% OINT 22 GM TUBE TOPICAL SCH (08:29)
[2017-07-24] MEDS: METOPROLOL TARTRATE 50 MG TAB PO SCH (08:30)
[2017-07-24] MEDS: DOCUSATE 100 MG CAP PO SCH (08:30)
[2017-07-24] MEDS: FUROSEMIDE 10 MG/ML 4 ML VIAL IV SCH (08:30)
[2017-07-24] MEDS: METOPROLOL TARTRATE 25 MG TAB PO SCH (08:30)
[2017-07-24] MEDS: AMANTADINE HCL 100 MG CAP PO SCH ×2 (08:30→12:31)
[2017-07-24] MEDS: traMADol 50 MG TAB PO PRN (10:57)
--- NOTE | 2017-07-24 11:06 | P.PN ---
Progress Note - Text Patient is a very pleasant 87-year-old female who is seen and examined at bedside for follow-up evaluation with her family present following close reduction intramedullary hip screw fixation for right intertrochanteric hip fracture performed on 07/21/2017. Patient states she has been doing well postsurgically. She is being prepared for discharge to rehabilitation facility today. She does have some soreness at the fracture site. She has been able to sit in a bedside chair without difficulty. She states she has had difficulty lifting her right leg. She does feel she is ready for discharge. She is eating and voiding without difficulty. She does have a history of colon cancer with bowel resection and states she has some chronic abdominal pain. She has not had any difficulties with eating. She was able to have a bowel movement yesterday. Her pain is been well-controlled. She has no new complaints morning. Physical Exam Intramedullary [place] for Intertrochanteric Fracture: Status post surgical day number 3 Patient is examined lying in bed Patient is awake and alert, and oriented 3 Vital signs stable Good chest excursion with deep inspiration and expiration Abdomen soft slight tenderness with palpation No signs or symptoms of DVT; no calf pain Lower extremity cuffs in place bilaterally Dressing of the right hip is clean, dry, and intact; no erythema, purulence, or signs of infection Full range of motion of ankles bilaterally Dorsiflexion, plantarflexion, and extensor hallucis longus positive sustained bilaterally Neurovascularly intact bilateral lower extremities Capillary refill less than 2 seconds bilateral lower extremities Greco catheter remains intact Assessment: Status post right intramedullary nail fixation for left intertrochanteric hip fracture Status post fall Plan: 1. Patient to remain toe-touch weightbearing on the right lower extremity; patient may work with physical therapy to increase mobility and ambulation 2. Keep dressing over the right hip clean, dry, and intact; kidney with daily dressing changes 3. Greco catheter to remain intact with follow-up evaluation by F 4. Continue pain control 5. [place] to be removed 10 days postoperatively, surgery was performed on 6. Continue with anticoagulation therapy as previously prescribed with Xarelto 7. Medicine to continue following the patient for their other medical diagnosis ; medicine has discharged patient today with plans to transfer to rehabilitation facility today 8. Patient can follow-up with Dr. Brooks Kraft at [facility] in 10 days following discharge
--- NOTE | 2017-07-24 11:19 | P.DS ---
Providers Date of admission: 07/20/17 15:58 Interval history:Patient was admitted for right hip fracture, sepsis and underwent surgery patient had pulmonary edema as today because of which patient is on IV Lasix at this time. Patient is excessively sleepy because of diazepam instructed to nursing staff to avoid narcotic medications since did will use tramadol for pain he cannot use other nonsteroidal anti-inflammatory medications because of borderline kidney function. Which actually improved compared to yesterday. 07/23/2017 chest x-ray reporting moderate right and small left pleural effusions , atelectasis and mild vascular congestion/CHF similar to prior x-ray. Continues diuresing on Lasix IV push. Incentive spirometer up to 750. T-max 99.2. Bowel movement yesterday. Good diet intake with no nausea vomiting. PT/ OT. 07/24/2017 Patient's volume status did improve.patient will be discharged to subacute recommendation today we'll use tramadol for pain GENERAL: The patient is alert and oriented x3, not in any acute distress. Well developed, well nourished. Sitting up in chair. HEENT: Pupils are round and equally reacting to light. EOMI. No scleral icterus. No conjunctival pallor. Normocephalic, atraumatic. No pharyngeal erythema. No thyromegaly. CARDIOVASCULAR: S1 and S2 present. No murmurs, rubs, or gallops. Patient does have minimally elevated JVD PULMONARY: Chest is clear to auscultation, no wheezing or crackles. ABDOMEN: Soft, nontender, nondistended, normoactive bowel sounds. No palpable organomegaly. MUSCULOSKELETAL: Deferred to orthopedic surgery EXTREMITIES: No cyanosis, clubbing, or pedal edema. NEUROLOGICAL: Gross neurological examination did not reveal any focal deficits. SKIN: No rashes. #1right hip surgery. #2 acute congestive heart failure, chronic diastolic dysfunction with acute exacerbation #3 atrial fibrillation: Rate controlled patient's rate control medications need to be continued anti-correlation was reinitiated today #4 coronary artery disease next #5 asthma, chronic and not in acute exacerbation #6 diabetes with us type II Attending physician: Brooks Kraft Consults: 07/20/17 15:58 Consult Physician Stat Consulting Provider: Buffy Crowley Consult Reason/Comments: Medical clearance Do you want consulting provider notified?: Yes Primary care physician: Rafael Douglass Patient Condition at Discharge: Stable Plan - Discharge Summary New Discharge Prescriptions: New INSULIN LISPRO (HumaLOG) [humaLOG] 0 unit SQ ACHS #1 vial Ipratropium-Albuterol Nebulize [Duoneb 0.5 mg-3 mg/3 ml Soln] 3 ml INHALATION RT-QID neb Ipratropium-Albuterol Nebulize [Duoneb 0.5 mg-3 mg/3 ml Soln] 3 ml INHALATION Q4H PRN neb PRN Reason: Shortness Of Breath Or Wheezing Sennosides-Docusate Sodium [Senokot-S] 2 each PO HS tab traMADol HCl [Ultram] 50 mg PO Q4H PRN #20 tab PRN Reason: Pain Continue Darifenacin Hydrobromide [Enablex] 15 mg PO DAILY Metoprolol Tartrate [Lopressor] 25 mg PO BID Carbidopa/Levodopa [Sinemet 25-100 mg] 1 tab PO BID Amantadine HCl [Symmetrel] 100 mg PO BID@0800,1200 Rivaroxaban [Xarelto] 15 mg PO DAILY Ondansetron [Zofran] 4 mg PO Q8HR PRN PRN Reason: Nausea Metoprolol Tartrate [Lopressor] 50 mg PO BID Nystatin 100,000Unit/gm Cream [Mycostatin Cream] 1 applic TOPICAL BID Lactulose 10 - 20 gm PO BID PRN PRN Reason: Constipation Glimepiride [Amaryl] 1 mg PO AC-BRKFST Mupirocin [Mupirocin 2%] 1 applic TOPICAL TID Potassium Chloride [Klor-Con 20] 20 meq PO BID Furosemide [Lasix] 40 mg PO DAILY Discontinued Albuterol Inhaler [Ventolin Hfa Inhaler] 2 puff INHALATION Q4H PRN PRN Reason: Shortness Of Breath HYDROcodone/APAP 7.5-325MG [[place] 7.5-325] 1 tab PO Q8H PRN PRN Reason: Pain Discharge Medication List Amantadine HCl [Symmetrel] 100 mg PO BID@0800,1200 07/20/17 [History] Carbidopa/Levodopa [Sinemet 25-100 mg] 1 tab PO BID 07/20/17 [History] Darifenacin Hydrobromide [Enablex] 15 mg PO DAILY 07/20/17 [History] Furosemide [Lasix] 40 mg PO DAILY 07/20/17 [History] Glimepiride [Amaryl] 1 mg PO AC-BRKFST 07/20/17 [History] Lactulose 10 - 20 gm PO BID PRN 07/20/17 [History] Metoprolol Tartrate [Lopressor] 25 mg PO BID 07/20/17 [History] Metoprolol Tartrate [Lopressor] 50 mg PO BID 07/20/17 [History] Mupirocin [Mupirocin 2%] 1 applic TOPICAL TID 07/20/17 [History] Nystatin 100,000Unit/gm Cream [Mycostatin Cream] 1 applic TOPICAL BID 07/20/17 [ History] Ondansetron [Zofran] 4 mg PO Q8HR PRN 07/20/17 [History] Potassium Chloride [Klor-Con 20] 20 meq PO BID 07/20/17 [History] Rivaroxaban [Xarelto] 15 mg PO DAILY 07/20/17 [History] INSULIN LISPRO (HumaLOG) [humaLOG] 0 unit SQ ACHS #1 vial 07/23/17 [Rx] Ipratropium-Albuterol Nebulize [Duoneb 0.5 mg-3 mg/3 ml Soln] 3 ml INHALATION Q4H PRN neb 07/23/17 [Rx] Ipratropium-Albuterol Nebulize [Duoneb 0.5 mg-3 mg/3 ml Soln] 3 ml INHALATION RT -QID neb 07/23/17 [Rx] Sennosides-Docusate Sodium [Senokot-S] 2 each PO HS tab 07/23/17 [Rx] traMADol HCl [Ultram] 50 mg PO Q4H PRN #20 tab 07/23/17 [Rx] Follow up Appointment(s)/Referral(s): Josh Michel MD [STAFF PHYSICIAN] - 3 Days (While at [facility]) Rafael Douglass III, MD [Primary Care Provider] - 1 Week (After DC from [facility]) Brooks Kraft DO [Doctor of Osteopathic Medicine] - 10 Days Activity/Diet/Wound Care/Special Instructions: Remove saritha 10 days post operative (surgery 07/21/17) Maintain barros, inserted 07/20/17, follow up with ECF Toe touch weight bearing with walker Daily dressing changes, right hip If incision is not draining may shower Cardiac and dental soft diet CBC, BMP Discharge Disposition: TRANSFER TO SNF/ECF
[2017-07-24 11:28] VITALS: PULSE 74
[2017-07-24 12:10] LABS: Glucose,Whole Blood 181 mg/dL (75-99)
--- NOTE | 2017-07-24 13:06 | ECHOF ---
Referral Reason:LV fx, CHF MEASUREMENTS -------- HEIGHT: 152.4 cm WEIGHT: 91.2 kg BP: 122/60 RVIDd: 3.3 cm (< 3.3) IVSd: 1.1 cm (0.6 - 1.1) LVIDd: 4.5 cm (3.9 - 5.3) LVPWd: 1.1 cm (0.6 - 1.1) IVSs: 1.6 cm LVIDs: 3.2 cm LVPWs: 1.5 cm LAESV Index (A-L): 32.28 ml/m Ao Diam: 2.7 cm (2.0 - 3.7) AV Cusp: 1.2 cm (1.5 - 2.6) LA Diam: 3.8 cm (2.7 - 3.8) MV EXCURSION: 11.800 mm (> 18.000) MV EF SLOPE: 75 mm/s (70 - 150) EPSS: 0.6 cm AR PHT: 468 ms RAP: 15.00 mmHg RVSP: 64.07 mmHg FINDINGS -------- Atrial fibrillation. This was a technically adequate study. Pt unable to turn due to hip fx. The left ventricular size is normal. There is borderline concentric left ventricular hypertrophy. Overall left ventricular systolic function is normal with, an EF between 55 - 60 %. The right ventricle is moderately enlarged. The right ventricular systolic function is normal. LA is midly dilated 29-33ml/m2. The right atrium is moderately enlarged. Aortic valve is trileaflet and is mildly thickened. There is moderate aortic regurgitation. There is no evidence of aortic stenosis. The mitral valve leaflets are mildly thickened. Mild mitral annular calcification present. [id number] mitral regurgitation is present. Moderate to severe tricuspid regurgitation present. There is moderate to severe pulmonary hypertension. The right ventricular systolic pressure, as measured by Doppler, is 64.07mmHg. The pulmonic valve was not well visualized. The aortic root size is normal. The inferior vena cava is dilated with no significant inspiratory collapse which is consistent estimated right atrial pressure of >20 mmHg. The pericardium is normal. There is no pericardial effusion. CONCLUSIONS -------- 1. Atrial fibrillation. 2. The right atrium is moderately enlarged. 3. Aortic valve is trileaflet and is mildly thickened. 4. There is moderate aortic regurgitation. 5. The mitral valve leaflets are mildly thickened. 6. Mild mitral annular calcification present. 7. [id number]-[id number] mitral regurgitation is present. 8. Moderate to severe tricuspid regurgitation present. 9. There is moderate to severe pulmonary hypertension. 10. The right ventricular systolic pressure, as measured by Doppler, is 64.07mmHg. 11. The pulmonic valve was not well visualized. 12. This was a technically adequate study. 13. The aortic root size is normal. 14. The inferior vena cava is dilated with no significant inspiratory collapse which is consistent estimated right atrial pressure of >20 mmHg. 15. Pt unable to turn due to hip fx. 16. The left ventricular size is normal. 17. There is borderline concentric left ventricular hypertrophy. 18. Overall left ventricular systolic function is normal with, an EF between 55 - 60 %. 19. The right ventricle is moderately enlarged. 20. The right ventricular systolic function is normal. 21. LA is midly dilated 29-33ml/m2. SHERIFF'S SERGEANT: Raúl Isidro RDCS
== END 2017-07-24 14:07 | DRG 480 ==
LOC: EC 13:21 → 5ONC 15:58
PROVIDERS: ADMIT Hospitalist; ATTEND Orthopaedic Surgery
PROC: 0QS636Z Reposition Right Upper Femur with Intramedullary Internal Fixation Device, Percutaneous Approach (ICD-10-PCS; principal; 2017-07-21 08:15)
DX: S72.141A Displaced intertrochanteric fracture of right femur, initial encounter for closed fracture (principal); I50.33 Acute on chronic diastolic (congestive) heart failure; J44.9 Chronic obstructive pulmonary disease, unspecified; I11.0 Hypertensive heart disease with heart failure; G20 Parkinson's disease; I48.91 Unspecified atrial fibrillation; E11.9 Type 2 diabetes mellitus without complications; J98.11 Atelectasis; I25.10 Atherosclerotic heart disease of native coronary artery without angina pectoris; I25.2 Old myocardial infarction; K59.00 Constipation, unspecified; N32.81 Overactive bladder; M19.91 Primary osteoarthritis, unspecified site; G89.29 Other chronic pain; Z85.828 Personal history of other malignant neoplasm of skin; Z79.84 Long term (current) use of oral hypoglycemic drugs; Z79.01 Long term (current) use of anticoagulants; Z79.899 Other long term (current) drug therapy; Z91.81 History of falling; Z96.653 Presence of artificial knee joint, bilateral; Z85.038 Personal history of other malignant neoplasm of large intestine; Z88.2 Allergy status to sulfonamides; Z91.041 Radiographic dye allergy status; W01.0XXA Fall on same level from slipping, tripping and stumbling without subsequent striking against object, initial encounter; Y92.009 Unspecified place in unspecified non-institutional (private) residence as the place of occurrence of the external cause
CPT/HCPCS: 36415; 70450; 71010; 73502; 80048; 80053; 81003; 83036; 85025; 85027; 85610; 85730; 93005; 93306; 94640; 94760; 96374; 99285

== ENCOUNTER 2017-12-17 13:21 | Inpatient (IN) | payer MEDICARE, BC, OTHER ==
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
[2017-12-17 14:28] LABS: INR 2.2 (<1.2); Partial Thromboplastin Time 35.7 sec (22.0-30.0); Prothrombin Time 19.6 sec (9.0-12.0)
[2017-12-17 14:29] LABS: Albumin 3.3 g/dL (3.5-5.0); Potassium 6.1 mmol/L (3.5-5.1); Total Protein 6.1 g/dL (6.3-8.2)
--- NOTE | 2017-12-17 14:39 | CT ---
EXAMINATION TYPE: CT brain wo con DATE OF EXAM: 12/17/2017 COMPARISON: 07/20/2017 INDICATION: Weak, UTI DLP: 869.5 mGycm, Automated exposure control for dose reduction was used. CONTRAST: None CT of the brain is performed utilizing 3 mm thick sections through the posterior fossa and 3 mm thick sections through the remaining calvarium. Study is performed within 24 hours of arrival to the hosp [facility]. No abnormal hyperdensity is present to suggest an acute intracranial hemorrhage. Small calcification without mass effect on the adjacent brain is along the anterior right falx. No acute infarcts are evident. Periventricular white matter hypodensity is present, likely on the bas is of chronic white matter ischemic changes. Ventricles and sulci are appropriate for the patient age. There may be an air-fluid level within the right maxillary sinus. Correlate for right maxillary sinus itis. Retention cyst a be considered. Remaining paranasal sinuses and mastoid air cells are clear. IMPRESSIONS: 1. Atrophy with periventricular white matter ischemic type changes. 2. Examination is stable from 07/20/2017. 3. Retention cyst versus air-fluid level right maxillary sinus. Correlate for acute right maxillary s inusitis.
[2017-12-17 14:42] LABS: Basophils % (A) 0 %; Eosinophils # (A) 0.1 k/uL (0-0.7); Eosinophils % (A) 1 %; HCT 36.5 % (34.0-46.0); HGB 11.1 gm/dL (11.4-16.0); Hypochromasia Slight; Lymphocytes # (A) 1.3 k/uL (1.0-4.8); Lymphocytes % (A) 12 %; MCH 30.8 pg (25.0-35.0); MCHC 30.5 g/dL (31.0-37.0); MCV 100.8 fL (80.0-100.0); Macrocytosis Slight; Mean Platelet Volume 7.1; Monocytes # (A) 0.7 k/uL (0-1.0); Monocytes % (A) 6 %; Neutrophils # (A) 8.5 k/uL (1.3-7.7); Neutrophils % (A) 79 %; Platelet Count 248 k/uL (150-450); RBC 3.62 m/uL (3.80-5.40); RDW 15.6 % (11.5-15.5); WBC 10.8 k/uL (3.8-10.6)
--- NOTE | 2017-12-17 14:47 | XR ---
EXAMINATION TYPE: XR chest 2V DATE OF EXAM: 12/17/2017 COMPARISON: NONE HISTORY: Shortness of breath TECHNIQUE: Frontal and lateral views of the chest are obtained. FINDINGS: Scattered senescent parenchymal changes noted. Hyperinflation compatible with COPD. Patchy density right medial lung base may reflect developing infiltrate. Small left basilar pleural e ffusion or pleural thickening noted. Heart size is stable. Mediastinal structures are stable and grossly unremarkable. No evidence for hilar prominence. Degenerative changes dorsal spine. IMPRESSION: 1. Patchy density right medial lung base may reflect developing infiltrate. Small left basilar pleura l effusion or pleural thickening noted.
[2017-12-17 14:59] LABS: Creatine Kinase MB 1.6 ng/mL (0.0-2.4)
[2017-12-17 15:04] LABS: Troponin I 0.068 ng/mL (0.000-0.034)
[2017-12-17 15:13] LABS: RBC,Urine >182 /hpf (0-5); WBC,Urine 163 /hpf (0-5)
[2017-12-17 15:14] LABS: Appearance,Urine Turbid (Clear); Color,Urine Dark Brown
[2017-12-17] MEDS ORDERED: AZITHROMYCIN 500 MG in SODIUM CHLORIDE 0.9% 250 ML IVPB STA (15:37)
[2017-12-17] MEDS ORDERED: ASPIRIN 325 MG TAB PO STA (15:37)
[2017-12-17] MEDS ORDERED: PNEUMONIA PROTOCOL UTILIZED 1 EACH MISC PO PRN (15:37)
[2017-12-17] MEDS ORDERED: cefTRIAXone IN SWFI 1,000 MG/10 ML SYRINGE IVP STA (15:37)
[2017-12-17] MEDS: FUROSEMIDE 10 MG/ML 4 ML VIAL IV SCH ×2 (16:07→23:33)
[2017-12-17] MEDS: SODIUM CHLORIDE 0.9% 1,000 ML IV SCH (16:08)
[2017-12-17] MEDS: NITROGLYCERIN OINT 1 INCH/GM PACKET TOPICAL SCH ×2 (16:08→23:39)
[2017-12-17 21:00] LABS: Glucose,Whole Blood 111 mg/dL (75-99)
[2017-12-17 22:05] LABS: Troponin I 0.125 ng/mL (0.000-0.034)
[2017-12-17] MEDS: GABAPENTIN 100 MG CAP PO SCH (23:33)
[2017-12-17] MEDS ORDERED: IPRATROPIUM-ALBUTEROL 3 ML NEB INHALATION PRN (23:58)
[2017-12-18] MEDS ORDERED: SODIUM POLYSTYRENE SULFONATE 15 GM/60 ML BOTTLE PO STA (00:02)
--- NOTE | 2017-12-18 00:52 | HP ---
HISTORY AND PHYSICAL CHIEF COMPLAINT: Weakness and shortness of breath. HISTORY OF PRESENT ILLNESS: This 87-year-old woman with a past medical history of multiple medical problems including history of atrial fibrillation, history of CAD, history of CHF, COPD, diabetes type 2, history of DJD myocardial infarction, Parkinson's, being followed by Dr. Douglass in the outpatient setting, not feeling well over the past several days. Patient complaining of weakness and fatigue as well as shortness of breath. The patient has cough also. The patient had some antibiotics recently for UTI. Because of increased symptoms, patient came to [facility] and was admitted for further evaluation and treatment. CHF was suspected with some possible pneumonia. Patient also complaining of cough. The creatinine is also 1.93 with a potassium is 6.1. There is no history of fever, rigors. No history of headache, loss of consciousness, seizures. Bilateral leg swelling was also noted. Troponin 0.125. The patient also has some urinary retention, minimal. Patient mostly RBCs in the urine, some WBCs also noted. Influenza testing is negative. PAST MEDICAL HISTORY: History of asthma, history of atrial fibrillation, CAD, CHF, COPD, diabetes mellitus Type 2, hypertension, myocardial infarction, DJD. MEDICATIONS: Prior to admission include home medications are: 1. DiaBeta 5 mg p.o. daily. 2. Xarelto 15 mg p.o. daily. 3. Klor-Con 20 mEq p.o. b.i.d. 4. Lopressor 25 mg p.o. daily and 50 mg b.i.d. 5. DuoNeb q.i.d. p.r.n. 6. Motrin 600 mg p.o. b.i.d. 7. Hydrocodone 7.5 mg daily p.r.n. 8. Neurontin p.r.n. 9. Lasix 40 mg. 10.Enablex 15 mg p.o. daily. 11.Sinemet 25/100 1 p.o. b.i.d. 12.Symmetrel 100 mg p.o. b.i.d. ALLERGIES: SULFA. FAMILY HISTORY: History of myocardial infarction. SOCIAL HISTORY: No history of smoking. No history of alcohol intake. REVIEW OF SYSTEMS: ENT: Diminished hearing and vision. CARDIOVASCULAR: As mentioned earlier. Respiratory: As mentioned earlier. GI no nausea, vomiting. no dysuria. Nervous systems: No numbness. Allergy/ Immunology: No asthma or hayfever. Musculoskeletal as mentioned earlier. Hematology/ Oncology: As mentioned earlier. Endocrine: Diabetes. Constitutional: As mentioned earlier. Dermatology: Negative. Rheumatology: Negative. Psychiatric: As mentioned earlier. PHYSICAL EXAMINATION: Alert and oriented x2. Pulse 71, blood pressure 103/49, respiration 18, temperature 97.8, pulse ox 98% on 2 L. HEENT: Conjunctivae normal. Oral mucosa moist. Neck is no jugular venous distention. No carotid bruit. No lymph node enlargement. Cardiovascular: S1, S2 muffled. Ejection systolic murmur. No S3, no S4. Respiratory: Breath sounds diminished in the bases. Bilateral scattered rhonchi and a few basilar crackles. ABDOMEN: Soft, nontender. No mass. Legs: Bilateral leg edema. Pulses diminished bilaterally and extremities: Slightly cold and also some reddish lesions possible ischemia also present. Nervous system: Higher functions as mentioned earlier, moves all 4 limbs, no focal motor or sensory deficits. Lymphatics: No lymph nodes palpable in the neck, axillae or groin. Skin as mentioned earlier. Joints no active deforming arthropathy. LAB STUDIES: WBC 10.2, hemoglobin 11.9, MCV 100.8, INR 2.2. Sodium 130, potassium 6.1, creatinine 1.93. Troponin is noted. ASSESSMENT: 1. Shortness of breath with possible congestive heart failure acute exacerbation. Ejection fraction unknown. 2. Possible pneumonia or acute purulent tracheobronchitis. 3. Possible acute on chronic kidney failure. 4. Hypokalemia. 5. Hyponatremia. 6. Increased WBC. 7. Anemia. 8. Troponin 0.125, rule out acute non ST-segment elevation myocardial infarction. 9. Urinary retention, possibly urinary tract infection. 10.Atrial fibrillation. 11.History of asthma. 12.History of coronary artery disease. 13.History of chronic obstructive pulmonary disease. 14.History of diabetes mellitus type 2. 15.History of hypertension. 16.History of myocardial infarction. 17.History of degenerative joint disease. 18.History of Parkinson's. 19.History of constipation. 20.History of colon cancer resection. 21.History of skin cancer. 22.History of bowel resection. 23.History of hernia repair. RECOMMENDATIONS AND DISCUSSION: In this 87-year-old woman who presented with multiple complex medical issues, we will monitor the patient closely. Continue the current medications, management and symptomatic treatment. I would recommend cautious diuretics. Watch for the kidney function. I would recommend consult Cardiology. Otherwise empiric antibiotics will be initiated. I would also recommend resume the home medications and repeat potassium. Monitor PT/INR closely and cardiology and possibility of non-ST segment evaluation also to be considered. Antibiotics also for the possible UTI as well. Repeat labs. Overall prognosis guarded because of multiple complex medical issues. Further recommendations to follow. Copy of dictation being forwarded to Dr. Douglass who is the primary care physician. Cultures have been obtained as well as troponin. A 2D echo will be ordered. MMODL / IJN: [id number] / NANCY
[2017-12-18] MEDS: CARBIDOPA-LEVODOPA 25-100 MG 1 EACH TAB PO SCH ×3 (02:06→20:47)
[2017-12-18] MEDS: AMANTADINE HCL 100 MG CAP PO SCH ×3 (02:06→20:47)
[2017-12-18 03:17] LABS: Basophils % (A) 1 %; Eosinophils # (A) 0.2 k/uL (0-0.7); Eosinophils % (A) 3 %; HCT 35.4 % (34.0-46.0); HGB 10.6 gm/dL (11.4-16.0); Hypochromasia Slight; Lymphocytes # (A) 1.7 k/uL (1.0-4.8); Lymphocytes % (A) 23 %; MCH 30.7 pg (25.0-35.0); MCV 102.2 fL (80.0-100.0); Macrocytosis Slight; Mean Platelet Volume 6.8; Monocytes # (A) 0.5 k/uL (0-1.0); Monocytes % (A) 6 %; Neutrophils # (A) 4.6 k/uL (1.3-7.7); Neutrophils % (A) 63 %; Platelet Count 207 k/uL (150-450); RBC 3.46 m/uL (3.80-5.40); RDW 15.7 % (11.5-15.5); WBC 7.3 k/uL (3.8-10.6)
[2017-12-18 03:35] LABS: INR 1.7 (<1.2); Prothrombin Time 15.9 sec (9.0-12.0)
[2017-12-18 03:47] LABS: Calcium 8.6 mg/dL (8.4-10.2); Potassium 4.4 mmol/L (3.5-5.1)
[2017-12-18 03:57] LABS: Creatine Kinase MB 1.6 ng/mL (0.0-2.4)
[2017-12-18 04:09] LABS: Troponin I 0.113 ng/mL (0.000-0.034)
[2017-12-18 04:24] LABS: Glucose,Whole Blood 143 mg/dL (75-99)
[2017-12-18 05:46] LABS: Glucose,Whole Blood 150 mg/dL (75-99)
[2017-12-18] MEDS: INSULIN ASPART 100 UNIT/ML 1 ML 10 ML VIAL SQ SCH ×4 (06:30→20:54)
[2017-12-18] MEDS ORDERED: glipiZIDE 10 MG TAB PO SCH (07:30)
[2017-12-18] MEDS: METOPROLOL TARTRATE 25 MG TAB PO SCH (08:23)
[2017-12-18] MEDS: RIVAROXABAN 15 MG TAB PO SCH (08:23)
[2017-12-18] MEDS: NITROGLYCERIN OINT 1 INCH/GM PACKET TOPICAL SCH ×3 (08:23→16:52)
[2017-12-18] MEDS: FUROSEMIDE 10 MG/ML 4 ML VIAL IV SCH ×3 (08:23→20:47)
[2017-12-18] MEDS: METOPROLOL TARTRATE 50 MG TAB PO SCH (08:23)
[2017-12-18] MEDS: AZITHROMYCIN 500 MG TAB PO SCH (08:23)
[2017-12-18] MEDS ORDERED: DARIFENACIN HYDROBROMIDE 15 MG PO SCH (09:00)
--- NOTE | 2017-12-18 10:01 | XR ---
EXAMINATION TYPE: XR chest 2V DATE OF EXAM: 12/18/2017 HISTORY: pneumonia. REFERENCE: Previous study dated 12/17/2017. FINDINGS: There is worsening airspace disease at the right lung base. The heart is mildly enlarged. T here are small, bilateral effusions. There is vascular congestion and mild interstitial change. IMPRESSION: 1. WORSENING RIGHT BASILAR INFILTRATE. 2. SMALL, BILATERAL EFFUSIONS. 3. MILD CHANGES OF CONGESTIVE HEART FAILURE.
[2017-12-18] MEDS: cefTRIAXone IN SWFI 1,000 MG/10 ML SYRINGE IVP SCH (11:33)
[2017-12-18 12:01] LABS: Glucose,Whole Blood 104 mg/dL (75-99)
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
--- NOTE | 2017-12-18 14:13 | ECHOF ---
Referral Reason:chf MEASUREMENTS -------- HEIGHT: 154.9 cm WEIGHT: 88.5 kg BP: RVIDd: 3.6 cm (< 3.3) IVSd: 1.7 cm (0.6 - 1.1) LVIDd: 2.5 cm (3.9 - 5.3) LVPWd: 1.7 cm (0.6 - 1.1) IVSs: 1.6 cm LVIDs: 1.9 cm LVPWs: 1.8 cm Ao Diam: 2.6 cm (2.0 - 3.7) AV Cusp: 1.2 cm (1.5 - 2.6) LA Diam: 4.2 cm (2.7 - 3.8) MV EXCURSION: 15.618 mm (> 18.000) MV EF SLOPE: 72 mm/s (70 - 150) EPSS: 0.3 cm MV E Migue: 0.73 m/s MV DecT: 255 ms MV A Migue: 0.27 m/s MV E/A Ratio: 2.72 AV maxP.51 mmHg AV meanP.18 mmHg AR PHT: 390 ms RAP: 5.00 mmHg RVSP: 38.59 mmHg FINDINGS -------- Sinus rhythm with extra systolic beats. This was a technically good study. The left ventricular size is normal. There is severe concentric left ventricular hypertrophy. Ove rall left ventricular systolic function is normal with, an EF between 55 - 60 %. The right ventricle is severely enlarged. The left atrium is mildly dilated. RA appears enlarged. Aortic valve is trileaflet and is moderately thickened. There is mild aortic regurgitation. There is mild aortic stenosis present. Peak/mean gradient across the Aortic Valve is 15.51mmHg / 11.18mm Hg. The mitral valve leaflets are mildly thickened. Mild mitral annular calcification present. Mild m itral regurgitation is present. Severe tricuspid regurgitation present. There is mild pulmonary hypertension. The right ventricul ar systolic pressure, as measured by Doppler, is 38.59mmHg. Pulmonic valve appears structurally normal. The aortic root size is normal. The pericardium is normal. CONCLUSIONS -------- 1. Sinus rhythm with extra systolic beats. 2. This was a technically good study. 3. The left ventricular size is normal. 4. There is severe concentric left ventricular hypertrophy. 5. Overall left ventricular systolic function is normal with, an EF between 55 - 60 %. 6. The right ventricle is severely enlarged. 7. The left atrium is mildly dilated. 8. RA appears enlarged. 9. Aortic valve is trileaflet and is moderately thickened. 10. There is mild aortic regurgitation. 11. There is mild aortic stenosis present. 12. Peak/mean gradient across the Aortic Valve is 15.51mmHg / 11.18mmHg. 13. The mitral valve leaflets are mildly thickened. 14. Mild mitral annular calcification present. 15. Mild mitral regurgitation is present. 16. Severe tricuspid regurgitation present. 17. There is mild pulmonary hypertension. 18. The right ventricular systolic pressure, as measured by Doppler, is 38.59mmHg. 19. Pulmonic valve appears structurally normal. 20. The aortic root size is normal. 21. The pericardium is normal. CNC MILLING MACHINIST: Emily Pierre RDCS
[2017-12-18 14:16] LABS: Hemoglobin A1C 5.6 % (4.0-6.0)
[2017-12-18] MEDS ORDERED: ASPIRIN 325 MG TAB PO SCH (15:38)
[2017-12-18] MEDS: ASPIRIN 81 MG PO SCH (15:49)
[2017-12-18] MEDS: SODIUM CHLORIDE 0.9% 1,000 ML IV SCH (15:50)
[2017-12-18 17:15] LABS: Glucose,Whole Blood 66 mg/dL (75-99)
[2017-12-18 17:19] LABS: Glucose,Whole Blood 66 mg/dL (75-99)
[2017-12-18 17:38] LABS: Glucose,Whole Blood 69 mg/dL (75-99)
[2017-12-18 17:50] LABS: Glucose,Whole Blood 78 mg/dL (75-99)
--- NOTE | 2017-12-18 18:16 | PN ---
PROGRESS NOTE DATE OF SERVICE: 12/18/2017 This 87-year-old woman is admitted with shortness of breath and weakness, had COPD acute exacerbation. The patient also had consideration of possible pneumonia. A 2D echo showed ejection fraction of 55% to 60% indicating preserved LV function and acute diastolic dysfunction. Multiple mild valvular abnormalities including mild aortic stenosis noted and as well as severe tricuspid regurgitation. No chest pain. No palpitations. No fever. PHYSICAL EXAM: Alert and oriented x3. The pulse is 82, blood pressure 98/54, respirations 15, temperature is 97.4, pulse ox 96% on room air. HEENT: Conjunctivae normal, oral mucosa moist. NECK: Jugular venous distention present. No lymph node enlargement. CARDIOVASCULAR SYSTEMS: S1, S2, muffled. RESPIRATORY: Breath sounds diminished at the bases, no rhonchi, no crackles. ABDOMEN: Soft, nontender. No mass palpable. LEGS: No edema, no swelling. NERVOUS SYSTEM: No focal deficits. LABS: Glucose 66. The labs are noted. ASSESSMENT: 1. Shortness of breath with possible history of congestive heart failure acute exacerbation, acute on chronic diastolic dysfunction, ejection fraction 55% to 60%. 2. Possible pneumonia and acute purulent tracheobronchitis. 3. Possible acute on chronic kidney disease stage 3. 4. Hypokalemia. 5. Hyponatremia. 6. Increased WBC. 7. Anemia. 8. Troponin 0.125, possible acute non-ST elevation myocardial infarction. 9. Urinary retention, possibly urinary tract infection. 10.Atrial fibrillation. 11.History of asthma. 12.History of chronic obstructive pulmonary disease. 13.History of diabetes mellitus. 14.History of hypertension. 15.History myocardial infarction. 16.History of degenerative joint disease. 17.History of Parkinson's. 18.Constipation. 19.History of colon cancer resection. 20.History of skin cancer. 21.History of bowel resection. 22.History of hernia repair. 23.History of hypoglycemia. RECOMMENDATION AND DISCUSSION: Recommend to continue with the current management and symptomatic treatment. Otherwise at this time, I would recommend to continue the diuretics and monitor fluid and electrolytes closely. Will hold the glipizide and continue to monitor. Prognosis guarded. Further recommendations to follow. Will follow closely with Cardiology. MMODL / IJN: [id number] /
[2017-12-18] MEDS: GABAPENTIN 100 MG CAP PO SCH (20:47)
[2017-12-18 21:28] LABS: Glucose,Whole Blood 105 mg/dL (75-99)
[2017-12-19 02:23] LABS: Glucose,Whole Blood 130 mg/dL (75-99)
[2017-12-19] MEDS: NITROGLYCERIN OINT 1 INCH/GM PACKET TOPICAL SCH ×5 (05:45→20:53)
[2017-12-19 05:48] LABS: Glucose,Whole Blood 91 mg/dL (75-99)
[2017-12-19] MEDS: INSULIN ASPART 100 UNIT/ML 1 ML 10 ML VIAL SQ SCH ×4 (06:06→21:43)
[2017-12-19 06:22] LABS: Basophils % (A) 0 %; Eosinophils # (A) 0.2 k/uL (0-0.7); Eosinophils % (A) 3 %; HCT 33.6 % (34.0-46.0); HGB 9.8 gm/dL (11.4-16.0); Hypochromasia Moderate; Lymphocytes # (A) 1.8 k/uL (1.0-4.8); Lymphocytes % (A) 22 %; MCH 29.8 pg (25.0-35.0); MCHC 29.1 g/dL (31.0-37.0); MCV 102.1 fL (80.0-100.0); Macrocytosis Slight; Mean Platelet Volume 6.8; Monocytes # (A) 0.7 k/uL (0-1.0); Monocytes % (A) 8 %; Neutrophils # (A) 5.1 k/uL (1.3-7.7); Neutrophils % (A) 64 %; Platelet Count 214 k/uL (150-450); RBC 3.29 m/uL (3.80-5.40); RDW 15.4 % (11.5-15.5); WBC 7.9 k/uL (3.8-10.6)
[2017-12-19 06:37] LABS: Calcium 8.8 mg/dL (8.4-10.2)
[2017-12-19 06:42] LABS: Potassium 3.9 mmol/L (3.5-5.1)
[2017-12-19 06:43] LABS: INR 1.5 (<1.2)
[2017-12-19] MEDS: ASPIRIN 81 MG PO SCH (08:02)
[2017-12-19] MEDS: RIVAROXABAN 15 MG TAB PO SCH (08:02)
[2017-12-19] MEDS: CARBIDOPA-LEVODOPA 25-100 MG 1 EACH TAB PO SCH ×2 (08:02→20:52)
[2017-12-19] MEDS: GABAPENTIN 100 MG CAP PO SCH ×2 (08:02→20:52)
[2017-12-19] MEDS: METOPROLOL TARTRATE 25 MG TAB PO SCH (08:02)
[2017-12-19] MEDS: AMANTADINE HCL 100 MG CAP PO SCH ×2 (08:02→20:52)
[2017-12-19] MEDS: AZITHROMYCIN 500 MG TAB PO SCH (08:02)
[2017-12-19] MEDS: METOPROLOL TARTRATE 50 MG TAB PO SCH (08:02)
[2017-12-19] MEDS: cefTRIAXone IN SWFI 1,000 MG/10 ML SYRINGE IVP SCH (08:03)
[2017-12-19] MEDS: FUROSEMIDE 10 MG/ML 4 ML VIAL IV SCH ×3 (08:03→20:52)
[2017-12-19 12:22] LABS: Glucose,Whole Blood 206 mg/dL (75-99)
--- NOTE | 2017-12-19 13:57 | P.PN ---
Subjective Progress Note Date: 12/19/17 Mrs. Kim is seen and examined today sitting up in the chair. She continues to complain of shortness of breath. Denies chest pain, dizziness, palpitation, syncope, nausea or vomiting. She continues to have wheezing in both lungs with dullness noted on the right. Hgb 9.8, plt 214, potassium 3.9, cr 1.93 down from 2.0 yesterday. She is getting lasix 40mg IV every 8 hours currently. She also complains of urinary urgency and burning with pelvic pain. Telemetry tracings reveal atrial fibrillation with controlled ventricular response. Weight is down 3 kg. Objective - Vital Signs Vital signs: Vital Signs Temp 97.7 F 12/19/17 12:32 Pulse 80 12/19/17 12:32 Resp 16 12/19/17 12:32 BP 105/55 12/19/17 12:32 Pulse Ox 97 12/19/17 12:32 Intake & Output 12/18/17 12/19/17 12/19/17 18:59 06:59 18:59 Intake Total 480 120 Balance 480 120 Weight 88.5 kg 85.5 kg Intake: Oral 480 120 Other: # Voids 1 4 1 - Exam Blood pressure 105/55 heart rate 65 afebrile GENERAL: Well-appearing, well-nourished and in no acute distress. NECK: Supple without JVD or thyromegaly. LUNGS: Expiratory wheezes throught with dullness over right lung. Respiration equal and unlabored. No rales or rhonchi. HEART: Irregular rate and rhythm without murmurs, rubs or gallops. S1 and S2 heard. EXTREMITIES: Normal range of motion, ongoing b/l lower extremity 2+ edema. No clubbing or cyanosis. Peripheral pulses intact. - Labs CBC & Chem 7: 12/19/17 05:41 12/19/17 05:41 Labs: Abnormal Lab Results - Last 24 Hours (Table) 12/18/17 12/18/17 12/18/17 Range/Units 16:56 17:16 17:33 RBC (3.80-5.40) m/uL Hgb (11.4-16.0) gm/dL Hct (34.0-46.0) % MCV (80.0-100.0) fL MCHC (31.0-37.0) g/dL PT (9.0-12.0) sec INR (<1.2) BUN (7-17) mg/dL Creatinine (0.52-1.04) mg/dL POC Glucose (mg/dL) 66 L 66 L 69 L (75-99) mg/dL 12/18/17 12/19/17 12/19/17 Range/Units 20:51 02:10 05:41 RBC 3.29 L (3.80-5.40) m/uL Hgb 9.8 L (11.4-16.0) gm/dL Hct 33.6 L (34.0-46.0) % MCV 102.1 H (80.0-100.0) fL MCHC 29.1 L (31.0-37.0) g/dL PT (9.0-12.0) sec INR (<1.2) BUN (7-17) mg/dL Creatinine (0.52-1.04) mg/dL POC Glucose (mg/dL) 105 H 130 H (75-99) mg/dL 12/19/17 12/19/17 12/19/17 Range/Units 05:41 05:41 12:06 RBC (3.80-5.40) m/uL Hgb (11.4-16.0) gm/dL Hct (34.0-46.0) % MCV (80.0-100.0) fL MCHC (31.0-37.0) g/dL PT 14.0 H (9.0-12.0) sec INR 1.5 H (<1.2) BUN 48 H (7-17) mg/dL Creatinine 1.93 H (0.52-1.04) mg/dL POC Glucose (mg/dL) 206 H (75-99) mg/dL Microbiology - Last 24 Hours (Table) 12/17/17 14:51 Urine Culture - Final Urine,Catheterized 12/17/17 14:10 Blood Culture - Preliminary Blood No Growth after 24 hours Assessment and Plan Assessment: ASSESSMENT 1. Acute on chronic diastolic heart failure 2. Pneumonia 3. Urinary tract infection 4. Chronic persistent atrial fibrillation on shelter anticoagulation 5. Acute renal failure PLAN Continue with IV lasix for diuresis. Weight is down 3 kg with difficulty in accurate output secondary to incontinence. Recommend pulmonary consultation. Follow renal function closely. Further recommendations to follows. Nurse Practitioner note has been reviewed, I agree with a documented findings and plan of care. Patient was seen and examined.
--- NOTE | 2017-12-19 16:30 | PN ---
PROGRESS NOTE DATE OF SERVICE: 12/19/2017 This 87-year-old woman who was admitted with shortness of breath and possible CHF acute exacerbation is being closely monitored at this time. The patient also had a possible pneumonia and acute purulent tracheobronchitis. Also patient is on broad spectrum IV antibiotics. No chest pain. No palpitations. No fever. EXAM: Alert and oriented x3. Pulse 65, blood pressure 105/55, respirations 16, temperature 97.4, pulse ox 97% on room air. HEENT: Conjunctivae normal. NECK: No jugular venous distention. CARDIOVASCULAR: S1, S2 muffled. RESPIRATORY: Breath sounds diminished in the bases. Scattered rhonchi and crackles. Expiratory wheezing also present. ABDOMEN: Soft, nontender. LEGS: No edema. No swelling. NERVOUS SYSTEM: No focal deficits. LABS: WBC 7.2, hemoglobin is 9.8, creatinine is 1.93. ASSESSMENT: 1. Shortness of breath, possible congestive heart failure acute exacerbation with acute on chronic diastolic dysfunction, ejection fraction 50-60%. 2. Possible pneumonia with acute purulent tracheobronchitis. 3. Possible acute on chronic kidney disease stage 3. 4. Hypokalemia. 5. Hyponatremia. 6. Increased WBC. 7. Anemia. 8. Troponin 0.125, possible acute non ST-segment elevation myocardial infarction. 9. Urinary retention, possibly urinary tract infection. 10.Atrial fibrillation. 11.History of asthma. 12.Chronic obstructive pulmonary disease. 13.History of diabetes mellitus type 2. 14.History of hypertension. 15.History of myocardial infarction. 16.History of degenerative joint disease. 17.History of Parkinson's. 18.History of constipation. 19.History of colon cancer resection. 20.History of skin cancers. 21.History of bowel resection. 22.History of hernia repair. 23.History of hypoglycemia. RECOMMENDATIONS AND DISCUSSION: I recommend to continue current management and symptomatic treatment. Otherwise continue with antibiotics, diuretics. Guarded prognosis. Further recommendations to follow. MMODL / IJN: [id number] /
[2017-12-19] MEDS: SODIUM CHLORIDE 0.9% 1,000 ML IV SCH (16:54)
[2017-12-19 17:17] LABS: Glucose,Whole Blood 57 mg/dL (75-99)
[2017-12-19 17:22] LABS: Glucose,Whole Blood 97 mg/dL (75-99)
[2017-12-19] MEDS: HYDROcodone/APAP 7.5-325MG 1 EACH TAB PO PRN (20:51)
[2017-12-19 20:57] LABS: Glucose,Whole Blood 135 mg/dL (75-99)
[2017-12-20 05:56] LABS: Glucose,Whole Blood 104 mg/dL (75-99)
[2017-12-20] MEDS: INSULIN ASPART 100 UNIT/ML 1 ML 10 ML VIAL SQ SCH ×4 (06:22→21:26)
[2017-12-20 06:40] LABS: Basophils % (A) 0 %; Eosinophils # (A) 0.4 k/uL (0-0.7); Eosinophils % (A) 5 %; HCT 33.7 % (34.0-46.0); HGB 9.9 gm/dL (11.4-16.0); Hypochromasia Marked; Lymphocytes # (A) 1.8 k/uL (1.0-4.8); Lymphocytes % (A) 24 %; MCH 30.3 pg (25.0-35.0); MCHC 29.4 g/dL (31.0-37.0); MCV 103.1 fL (80.0-100.0); Macrocytosis Moderate; Mean Platelet Volume 6.7; Monocytes # (A) 0.6 k/uL (0-1.0); Monocytes % (A) 8 %; Neutrophils # (A) 4.6 k/uL (1.3-7.7); Neutrophils % (A) 61 %; Platelet Count 224 k/uL (150-450); RBC 3.27 m/uL (3.80-5.40); RDW 15.5 % (11.5-15.5); WBC 7.6 k/uL (3.8-10.6)
[2017-12-20 06:44] LABS: INR 1.6 (<1.2); Prothrombin Time 14.4 sec (9.0-12.0)
[2017-12-20 07:03] LABS: Calcium 9.1 mg/dL (8.4-10.2); Potassium 4.1 mmol/L (3.5-5.1)
[2017-12-20] MEDS: ASPIRIN 81 MG PO SCH (08:30)
[2017-12-20] MEDS: AMANTADINE HCL 100 MG CAP PO SCH ×2 (08:30→20:49)
[2017-12-20] MEDS: CARBIDOPA-LEVODOPA 25-100 MG 1 EACH TAB PO SCH ×2 (08:30→20:49)
[2017-12-20] MEDS: METOPROLOL TARTRATE 50 MG TAB PO SCH (08:30)
[2017-12-20] MEDS: FUROSEMIDE 10 MG/ML 4 ML VIAL IV SCH ×3 (08:30→23:33)
[2017-12-20] MEDS: GABAPENTIN 100 MG CAP PO SCH (08:30)
[2017-12-20] MEDS: AZITHROMYCIN 500 MG TAB PO SCH (08:30)
[2017-12-20] MEDS: cefTRIAXone IN SWFI 1,000 MG/10 ML SYRINGE IVP SCH (08:30)
[2017-12-20] MEDS: METOPROLOL TARTRATE 25 MG TAB PO SCH (08:31)
[2017-12-20] MEDS: RIVAROXABAN 15 MG TAB PO SCH (08:32)
[2017-12-20] MEDS: NITROGLYCERIN OINT 1 INCH/GM PACKET TOPICAL SCH ×4 (08:32→20:49)
[2017-12-20 11:51] LABS: Glucose,Whole Blood 126 mg/dL (75-99)
--- NOTE | 2017-12-20 15:59 | P.PN ---
Subjective Progress Note Date: 12/20/17 Pleasant 87-year-old female patient who spells with Dr. Sutherland in the office. She has a history of atrial fibrillation, coronary artery disease, prior VT, diastolic congestive heart failure, diabetes, hypertension and COPD. Presented to the emergency department with complaints of weakness, near syncope and progressively worsening shortness of breath with exertion as well as orthopnea and lower extremity edema. Chest x-ray on admission shows patchy density right medial lung base which may reflect developing infiltrate, small left basilar pleural effusion or pleural thickening noted. EKG showed atrial fibrillation with controlled ventricular response with nonspecific ST-T wave abnormalities similar to previous. Laboratory values are reviewed and showed potassium of 6.1 on admission with a BUN of 46 and creatinine 1.93. These were redrawn this morning with a potassium of 4.4, BUN 49 and creatinine 2.0. Her BNP is elevated at 14,100. She's had mild elevation of her troponins at 0.068, 0.125 and 0.113. She's had no complaints of chest discomfort. Old records from here were reviewed. Echocardiogram from July 2017 shows normal LV systolic function with ejection fraction between 55-60%, moderately enlarged RV, moderate aortic regurgitation, mild to moderate mitral regurgitation, moderate to severe tricuspid regurgitation and moderate to severe pulmonary hypertension. Upon examination, patient is resting comfortably in bed. Continues to complain of some mild orthopnea as her swelling and breathing are somewhat better overall. She continues to feel weak without dizziness or lightheadedness at this time. 12/20/2017 Patient was seen and examined this morning, feels well, eager to be discharged home today. Breathing is stable. Hemodynamically stable. Objective - Vital Signs Vital signs: Vital Signs Temp 98 F 12/20/17 15:35 Pulse 82 12/20/17 15:35 Resp 16 12/20/17 15:35 BP 122/68 12/20/17 15:35 Pulse Ox 99 12/20/17 15:35 Intake & Output 12/19/17 12/20/17 12/20/17 18:59 06:59 18:59 Intake Total 480 120 Balance 480 120 Weight 85.2 kg Intake: Oral 480 120 Other: # Voids 2 2 1 - Exam PHYSICAL EXAMINATION: HEENT: Head is atraumatic, normocephalic. Pupils equal, round. Neck is supple. There is elevated jugular venous pressure. HEART EXAMINATION: Heart sounds regular, S1 and S2 normal. No murmur or gallop heard. CHEST EXAMINATION: Lungs reveal expiratory wheezing throughout. No chest wall tenderness is noted on palpation or with deep breathing. ABDOMEN: Soft, obese, nontender. Bowel sounds are heard. No organomegaly noted. EXTREMITIES: diminished peripheral pulses with evidence of 1+ peripheral edema and no calf tenderness noted. NEUROLOGIC patient is awake, alert and oriented x3. - Labs CBC & Chem 7: 12/20/17 05:49 12/20/17 05:49 Labs: Abnormal Lab Results - Last 24 Hours (Table) 12/19/17 12/19/17 12/20/17 Range/Units 16:49 20:56 05:49 RBC 3.27 L (3.80-5.40) m/uL Hgb 9.9 L (11.4-16.0) gm/dL Hct 33.7 L (34.0-46.0) % MCV 103.1 H (80.0-100.0) fL MCHC 29.4 L (31.0-37.0) g/dL PT (9.0-12.0) sec INR (<1.2) BUN (7-17) mg/dL Creatinine (0.52-1.04) mg/dL Glucose (74-99) mg/dL POC Glucose (mg/dL) 57 L 135 H (75-99) mg/dL 12/20/17 12/20/17 12/20/17 Range/Units 05:49 05:49 05:55 RBC (3.80-5.40) m/uL Hgb (11.4-16.0) gm/dL Hct (34.0-46.0) % MCV (80.0-100.0) fL MCHC (31.0-37.0) g/dL PT 14.4 H (9.0-12.0) sec INR 1.6 H (<1.2) BUN 50 H (7-17) mg/dL Creatinine 1.86 H (0.52-1.04) mg/dL Glucose 102 H (74-99) mg/dL POC Glucose (mg/dL) 104 H (75-99) mg/dL 12/20/17 Range/Units 11:26 RBC (3.80-5.40) m/uL Hgb (11.4-16.0) gm/dL Hct (34.0-46.0) % MCV (80.0-100.0) fL MCHC (31.0-37.0) g/dL PT (9.0-12.0) sec INR (<1.2) BUN (7-17) mg/dL Creatinine (0.52-1.04) mg/dL Glucose (74-99) mg/dL POC Glucose (mg/dL) 126 H (75-99) mg/dL Microbiology - Last 24 Hours (Table) 12/17/17 14:10 Blood Culture - Preliminary Blood No Growth after 48 hours Assessment and Plan Plan: Assessment: #1 acute and chronic diastolic congestive heart failure #2 pneumonia #3 urinary tract infection #4 chronic atrial fibrillation #5 acute renal failure plan From cardiology's perspective, patient may be able to be discharged home once cleared by the primary. Follow-up appointment will be made in the office with his railcar switchman post discharge. DNP note has been reviewed, I agree with a documented findings and plan of care. Patient was seen and examined.
[2017-12-20 17:26] LABS: Glucose,Whole Blood 145 mg/dL (75-99)
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
[2017-12-20] MEDS: SODIUM CHLORIDE 0.9% 1,000 ML IV SCH (19:31)
[2017-12-20] MEDS: SYMBICORT 160-4.5 MCG INHALER INHALATION SCH (21:20)
[2017-12-20] MEDS: IPRATROPIUM-ALBUTEROL 3 ML NEB INHALATION SCH (21:20)
[2017-12-20 21:22] LABS: Glucose,Whole Blood 119 mg/dL (75-99)
--- NOTE | 2017-12-20 22:15 | PN ---
PROGRESS NOTE DATE OF SERVICE: 12/20/2017. HISTORY: This 87-year-old woman who was admitted with shortness of breath and CHF acute exacerbation also had a possible pneumonia. The patient has acute on chronic kidney disease as well. The patient is confused. Patient apparently taking Neurontin recently, restarted at 100 mg p.o. b.i.d. for tingling and numbness. The patient is confused currently. Patient is on broad spectrum IV antibiotics. Multiple consultants including Cardiology and Pulmonology are following the patient closely. PAST MEDICAL HISTORY: Reviewed. REVIEW OF SYSTEMS: Cardiovascular: As mentioned GI: As mentioned. : No dysuria. Nervous System: The patient is mildly confused. CURRENT MEDICATIONS: 1. [place] 7.5 q.i.d. p.r.n. 2. DuoNeb q.i.d. and p.r.n. 3. Symmetrel 100 mg p.o. b.i.d. 4. Aspirin 81 mg. 5. Zithromax 500 mg daily. 6. Symbicort. 7. Carbidopa levodopa 20% 1 p.o. b.i.d. 8. Rocephin 1 g daily. 9. Folic acid 1 mg. 10.Lasix 40 mg IV every 8 hours. 11.NovoLog scale. 12.Lopressor 50 mg. 13.Lopressor 25 mg daily. 14.Vitamin. 15.Nitro-Bid ointment 1 inch q.i.d. 16.Xarelto 15 mg p.o. daily. 17.Vitamin B1. 18.Thiamine 100 mg p.o. daily. PHYSICAL EXAMINATION: Alert oriented x2. Pulse 82, blood pressure 110/68, respirations 16, temperature 98 degrees, pulse ox 98% on 3 L. HEENT: Conjunctivae normal. NECK: No JVD. CARDIOVASCULAR: S1 and S2 muffled. LUNGS: Breath sounds diminished at the bases. Bilateral scattered rhonchi and crackles. ABDOMEN: Soft, nontender. No mass palpable. LEGS: No edema. No swelling. NERVOUS SYSTEM: Higher functions as mentioned earlier, moves all 4 limbs, no focal motor or sensory deficits. SKIN: No ulcer or rash. LABS: At this time shows WBC 7.2, hemoglobin 9.9, INR is 1.6, creatinine is 1.86, glucose 104. ASSESSMENT: 1. Shortness with possible congestive heart failure acute exacerbation with acute on chronic diastolic dysfunction, ejection fraction 50 to 60%. 2. Possible pneumonia and acute purulent tracheobronchitis. 3. Acute on chronic kidney disease stage 3. 4. Hypokalemia. 5. Change in mental status, metabolic encephalopathy, multifactorial. 6. Hyponatremia. 7. Increased WBC. 8. Anemia. 9. Troponin 0.125, possible acute [id number] elevation myocardial infarction. 10.Urinary tract infection. 11.Atrial fibrillation. 12.History of asthma and chronic obstructive pulmonary disease. 13.History of diabetes type 2. 14.History of hypertension. 15.History of myocardial infarction. 16.History of degenerative joint disease. 17.History of Parkinson's. 18.History of constipation. 19.History of colon cancer with resection. 20.History of skin cancer. 21.History of bowel resection. 22.History of hernia repair. 23.History of hypoglycemia. RECOMMENDATIONS: Recommend to continue current medications, monitoring and symptomatic treatment. Otherwise we will monitor the patient closely. Otherwise monitor fluid and electrolytes closely. Guarded prognosis because of multiple complex medical issues. Further recommendations to follow. MMODL / IJN: [id number] /
[2017-12-21 06:11] LABS: Appearance,Urine Clear (Clear); Bacteria,Urine Moderate /hpf; Bilirubin,Urine Negative (Negative); Blood,Urine Small (Negative); Color,Urine Light Yellow; Glucose,Urine (UA) Negative (Negative); Hyaline Casts,Urine 1 /lpf (0-2); Ketones,Urine Negative (Negative); Leukocyte Esterase,Urine Negative (Negative); Nitrite,Urine Negative (Negative); Protein,Urine Negative (Negative); RBC,Urine 6 /hpf (0-5); Specific Gravity,Urine 1.006 (1.001-1.035); Squamous Epithelial Cell,Urine <1 /hpf (0-4); Urobilinogen,Urine <2.0 mg/dL (<2.0); WBC,Urine <1 /hpf (0-5)
[2017-12-21 06:36] LABS: Glucose,Whole Blood 90 mg/dL (75-99)
[2017-12-21] MEDS: INSULIN ASPART 100 UNIT/ML 1 ML 10 ML VIAL SQ SCH ×4 (06:41→20:53)
[2017-12-21 06:52] LABS: INR 1.6 (<1.2); Prothrombin Time 14.7 sec (9.0-12.0)
[2017-12-21 06:53] LABS: Calcium 8.9 mg/dL (8.4-10.2); Potassium 3.4 mmol/L (3.5-5.1)
[2017-12-21 07:56] LABS: Basophils % (A) 1 %; Eosinophils # (A) 0.1 k/uL (0-0.7); Eosinophils % (A) 1 %; HCT 32.1 % (34.0-46.0); HGB 10.1 gm/dL (11.4-16.0); Hypochromasia Marked; Lymphocytes # (A) 1.2 k/uL (1.0-4.8); Lymphocytes % (A) 18 %; MCH 32.4 pg (25.0-35.0); MCHC 31.4 g/dL (31.0-37.0); MCV 103.2 fL (80.0-100.0); Macrocytosis Moderate; Monocytes # (A) 0.4 k/uL (0-1.0); Monocytes % (A) 6 %; Neutrophils # (A) 5.2 k/uL (1.3-7.7); Neutrophils % (A) 73 %; Platelet Count 211 k/uL (150-450); RBC 3.11 m/uL (3.80-5.40); RDW 15.4 % (11.5-15.5); WBC 7.1 k/uL (3.8-10.6)
[2017-12-21] MEDS: RIVAROXABAN 15 MG TAB PO SCH (08:30)
[2017-12-21] MEDS: AZITHROMYCIN 500 MG TAB PO SCH (08:30)
[2017-12-21] MEDS: METOPROLOL TARTRATE 25 MG TAB PO SCH (08:30)
[2017-12-21] MEDS: NITROGLYCERIN OINT 1 INCH/GM PACKET TOPICAL SCH ×4 (08:30→20:52)
[2017-12-21] MEDS: CARBIDOPA-LEVODOPA 25-100 MG 1 EACH TAB PO SCH ×2 (08:31→20:53)
[2017-12-21] MEDS: ASPIRIN 81 MG PO SCH (08:31)
[2017-12-21] MEDS: FUROSEMIDE 10 MG/ML 4 ML VIAL IV SCH ×3 (08:31→23:30)
[2017-12-21] MEDS: METOPROLOL TARTRATE 50 MG TAB PO SCH (08:31)
[2017-12-21] MEDS: AMANTADINE HCL 100 MG CAP PO SCH ×2 (08:31→20:53)
[2017-12-21] MEDS: SYMBICORT 160-4.5 MCG INHALER INHALATION SCH ×3 (08:39→21:35)
[2017-12-21] MEDS: IPRATROPIUM-ALBUTEROL 3 ML NEB INHALATION SCH ×4 (08:39→21:19)
[2017-12-21] MEDS: cefTRIAXone IN SWFI 1,000 MG/10 ML SYRINGE IVP SCH (08:42)
[2017-12-21] MEDS: ACETAMINOPHEN TAB 325 MG TAB PO PRN ×2 (08:52→17:44)
--- NOTE | 2017-12-21 08:59 | CDI ---
Last Revision, October 2017 Documentation Clarification Form Date: 12/21/2017 8:41:00 AM From: Josefa Mays RN Admit Date: 12/17/2017 3:37:00 PM Patient Name: Vanessa Kim Visit Number: [id number] ATTENTION: The Clinical Documentation Specialists (CDI) and [facility] Coding Staff appreciate your assistance in clarifying documentation. Please respond to the clarification below the line at the bottom and electronically sign. The CDI & [facility] Coding staff will review the response and follow-up if needed. Please note: Queries are made part of the Legal Health Record. If you have any questions, please contact the author of this message via ITS. Dr. Murray, Documentation and location in medical record included "acute sepsis" in Progress Note 12/20 from Pulmonary. History/Risk Factors: asthma, a fib, cad, chf, copd, dm, htn, parkinsons and mi diagnosis on admission UTI and pneumonia Clinical Indicators: fatigue/weakness, failed outpatient treatment WBC on admission: 10.8, Neurtophils 8.5 Blood cultures: no growth after 72 hours Vitals signs on admission: T 97.4, P 69, R 18, 107/57, 98% RA Urinalysis: dark , turbid, rbc >182, wbc 163 Treatment: Antibiotics: IV Azithromycin, IV Rocephin In your professional opinion, please clarify if these findings signify one of the following conditions, whether the condition is POA, and cause, if known: Sepsis ruled out Sepsis ruled in Severe Sepsis Other, please specify Unable to determine Present on Admission: Yes No Please continue to document in your progress notes and discharge summary in order to capture severity of illness and risk of mortality. Include clinical findings that support your diagnosis. MTDD
[2017-12-21 11:50] LABS: Glucose,Whole Blood 86 mg/dL (75-99)
--- NOTE | 2017-12-21 12:19 | P.PN ---
Subjective Progress Note Date: 12/21/17 Principal diagnosis: Acute on chronic diastolic congestive heart failure Vanessa is a 87-year-old white female patient of Dr. Douglass, who presented to the emergency department on 12/27/2017 at 1321 with complaints of fatigue, weakness , difficulty walking, some wheezing and shortness of breath. was recently treated with an oral antibiotic for a urinary tract infection by her PCP. However her fatigue and weakness became progressively worse, and the family insisted that the patient go to the hospital for further evaluation and treatment. Patient was also having altered mental status status, with hallucinations and delirium. Brain CT on 12/17/2017 showed atrophy with. Ventricular white matter ischemic type changes. These changes were stable compared to previous exam on 07/20/2017. There were retention cysts versus air- fluid level right maxillary sinus. Chest x-ray from 12/17/2017 showed patchy density in the right medial lung base. Small left basilar pleural effusion or pleural thickening was noted. Twelve-lead EKG on 12/27/2017 showed atrial fibrillation with a rate of 63 bpm. Lab work showed WBC of 10.8, hemoglobin 11.1, INR is 2.2, patient is on Xarelto for her history of chronic atrial fibrillation. Patient was found to have acute kidney injury with BUN of 46, and creatinine of 1.93, and hyperkalemia of 6.1 present on admission. Troponins were elevated 3, and peaked at 0.125. Patient's proBNP was 14,100. Patient's urinalysis showed dark brown turbid urine with urine white blood cells at 163, and urine RBC and greater than 182. Patient was afebrile, her vitals remained stable throughout her stay, she is on room air, with O2 sat between 98-100 percent. Patient was started on Rocephin, Zithromax, IV Lasix, nebulized treatments and admitted for further management. The patient is seen again today 12/21/2017 in follow-up on the selective care unit. She is currently resting fairly comfortably in bed. He is disoriented to place and time. She is currently febrile at 100.7. No tachycardia. No tachypnea. Blood pressure stable. She is maintaining O2 saturations in the low 90s on 4 L/m per nasal cannula. Blood culture reveals no growth to date. Urine culture reveals no growth. No leukocytosis. Currently on azithromycin. Creatinine 1.45. Objective - Vital Signs Vital signs: Vital Signs Temp 100.7 F H 12/21/17 11:40 Pulse 78 12/21/17 11:40 Resp 20 12/21/17 11:40 BP 93/55 12/21/17 11:40 Pulse Ox 93 L 12/21/17 11:40 Intake & Output 12/20/17 12/21/17 12/21/17 18:59 06:59 18:59 Intake Total 240 20 Balance 240 20 Weight 83.5 kg Intake: IV 20 0.9 20 Oral 240 Other: Voiding Method Incontinent Diaper Diaper Incontinent Incontinent # Voids 1 2 - Exam GENERAL EXAM: Resting comfortably in bed, disoriented to place and time. HEAD: Normocephalic. EYES: Normal reaction of pupils, equal size. NOSE: Clear with pink turbinates. THROAT: No erythema or exudates. NECK: No masses, no JVD. CHEST: No chest wall deformity. LUNGS: Equal air entry with faint crackles in the posterior bases more so on the right CVS: S1 and S2 normal with no audible murmur, regular rhythm. ABDOMEN: No hepatosplenomegaly, normal bowel sounds, no guarding or rigidity. SPINE: No scoliosis or deformity SKIN: No rashes CENTRAL NERVOUS SYSTEM: No focal deficits, tone is normal in all 4 extremities. EXTREMITIES: There is no peripheral edema. No clubbing, no cyanosis. Peripheral pulses are intact. - Labs CBC & Chem 7: 12/21/17 05:50 12/21/17 05:50 Labs: Abnormal Lab Results - Last 24 Hours (Table) 12/20/17 12/20/17 12/21/17 Range/Units 17:07 21:20 05:40 RBC (3.80-5.40) m/uL Hgb (11.4-16.0) gm/dL Hct (34.0-46.0) % MCV (80.0-100.0) fL PT (9.0-12.0) sec INR (<1.2) Potassium (3.5-5.1) mmol/L BUN (7-17) mg/dL Creatinine (0.52-1.04) mg/dL POC Glucose (mg/dL) 145 H 119 H (75-99) mg/dL Urine Blood Small H (Negative) Urine RBC 6 H (0-5) /hpf Urine Bacteria Moderate H (None) /hpf 12/21/17 12/21/17 12/21/17 Range/Units 05:50 05:50 05:50 RBC 3.11 L (3.80-5.40) m/uL Hgb 10.1 L (11.4-16.0) gm/dL Hct 32.1 L (34.0-46.0) % MCV 103.2 H (80.0-100.0) fL PT 14.7 H (9.0-12.0) sec INR 1.6 H (<1.2) Potassium 3.4 L (3.5-5.1) mmol/L BUN 42 H (7-17) mg/dL Creatinine 1.45 H (0.52-1.04) mg/dL POC Glucose (mg/dL) (75-99) mg/dL Urine Blood (Negative) Urine RBC (0-5) /hpf Urine Bacteria (None) /hpf Microbiology - Last 24 Hours (Table) 12/17/17 14:10 Blood Culture - Preliminary Blood No Growth after 72 hours Assessment and Plan Assessment: Impression: #1. Shortness of breath related to acute on chronic diastolic congestive heart failure. ProBNP was 14,100, troponins were mildly elevated and peaked at 0.125. Chest x-ray showed bilateral small pleural effusions, vascular congestion and interstitial changes, consistent with congestive heart failure #2. Acute sepsis related to acute urinary tract infection. Patient presented with progressive weakness, altered mental status, confusion, acute kidney injury , and evidence of dark brown turbid urine with multiple WBCs, and RBCs. Patient has been treated for a urinary tract infection on an outpatient basis by her PCP #3. History of bronchial asthma, with current exacerbation #4. Chronic persistent atrial fibrillation, on long-term anticoagulation with Xarelto #5. Acute kidney injury, creatinine on admission was 1.93, with BUN of 46, possibly related to acute tubular necrosis and hypoperfusion related to sepsis. Slight improvement today 12/21/2017 with a BUN of 42 creatinine 1.45 #6. Hypercalcemia, serum potassium was 6.1, present on admission, improved, with IV Lasix, currently down to 3.4. #7. Non-anion gap metabolic acidosis, secondary to acute renal failure, related to sepsis #8. Chronic macrocytic anemia #9. Coronary artery disease, with history of myocardial infarction #10. Hypertension #11. DJD Plan: The patient was seen and evaluated by Dr. Gilmore. We'll continue with her current treatment plan for now. Continue DuoNeb inhalations, Symbicort and Medrol Dosepak. Blood and urine cultures are negative. She remains on azithromycin. Anticoagulated with Xarelto. We will repeat a chest x-ray in the a.m. We will continue to follow make further recommendations based on her clinical status. I, the cosigning physician, performed a history & physical examination of the patient. Lungs sounds echo is in the posterior bases more so on the right. Maintaining good O2 saturations in the 90s on 4 L/m per nasal cannula. I discussed the assessment and plan of care with my nurse practitioner, Kalli Childs. I attest to the above note as dictated by her.
[2017-12-21] MEDS: MULTIVITAMINS, THERA 1 EACH TAB PO SCH (12:30)
[2017-12-21] MEDS: FOLIC ACID 1 MG TAB PO SCH (12:30)
[2017-12-21] MEDS: THIAMINE 100 MG TAB PO SCH (12:30)
[2017-12-21] MEDS: methylPREDNISolone 4 MG TAB TAPER PO SCH (12:30)
[2017-12-21] MEDS: SODIUM CHLORIDE 0.9% 1,000 ML IV SCH (12:31)
--- NOTE | 2017-12-21 15:08 | P.PN ---
Subjective Progress Note Date: 12/21/17 Pleasant 87-year-old female patient who spells with Dr. Sutherland in the office. She has a history of atrial fibrillation, coronary artery disease, prior [place], diastolic congestive heart failure, diabetes, hypertension and COPD. Presented to the emergency department with complaints of weakness, near syncope and progressively worsening shortness of breath with exertion as well as orthopnea and lower extremity edema. Chest x-ray on admission shows patchy density right medial lung base which may reflect developing infiltrate, small left basilar pleural effusion or pleural thickening noted. EKG showed atrial fibrillation with controlled ventricular response with nonspecific ST-T wave abnormalities similar to previous. Laboratory values are reviewed and showed potassium of 6.1 on admission with a BUN of 46 and creatinine 1.93. These were redrawn this morning with a potassium of 4.4, BUN 49 and creatinine 2.0. Her BNP is elevated at 14,100. She's had mild elevation of her troponins at 0.068, 0.125 and 0.113. She's had no complaints of chest discomfort. Old records from here were reviewed. Echocardiogram from July 2017 shows normal LV systolic function with ejection fraction between 55-60%, moderately enlarged RV, moderate aortic regurgitation, mild to moderate mitral regurgitation, moderate to severe tricuspid regurgitation and moderate to severe pulmonary hypertension. Upon examination, patient is resting comfortably in bed. Continues to complain of some mild orthopnea as her swelling and breathing are somewhat better overall. She continues to feel weak without dizziness or lightheadedness at this time. 12/20/2017 Patient was seen and examined this morning, feels well, eager to be discharged home today. Breathing is stable. Hemodynamically stable. 12/21/2017 Patient seen and examined today, answering questions appropriately, keeping her eyes closed states that she feels tired. Hemodynamically stable. Objective - Vital Signs Vital signs: Vital Signs Temp 100.7 F H 12/21/17 11:40 Pulse 78 12/21/17 11:40 Resp 20 12/21/17 11:40 BP 93/55 12/21/17 11:40 Pulse Ox 93 L 12/21/17 11:40 Intake & Output 12/20/17 12/21/17 12/21/17 18:59 06:59 18:59 Intake Total 240 20 210 Balance 240 20 210 Weight 83.5 kg Intake: IV 20 0.9 20 Oral 240 210 Other: Voiding Method Incontinent Diaper Diaper Incontinent Incontinent # Voids 1 2 - Exam PHYSICAL EXAMINATION: HEENT: Head is atraumatic, normocephalic. Pupils equal, round. Neck is supple. There is elevated jugular venous pressure. HEART EXAMINATION: Heart sounds regular, S1 and S2 normal. No murmur or gallop heard. CHEST EXAMINATION: Lungs reveal expiratory wheezing throughout. No chest wall tenderness is noted on palpation or with deep breathing. ABDOMEN: Soft, obese, nontender. Bowel sounds are heard. No organomegaly noted. EXTREMITIES: diminished peripheral pulses with evidence of 1+ peripheral edema and no calf tenderness noted. NEUROLOGIC patient is awake, alert and oriented x3. - Labs CBC & Chem 7: 12/21/17 05:50 12/21/17 05:50 Labs: Abnormal Lab Results - Last 24 Hours (Table) 12/20/17 12/20/17 12/21/17 Range/Units 17:07 21:20 05:40 RBC (3.80-5.40) m/uL Hgb (11.4-16.0) gm/dL Hct (34.0-46.0) % MCV (80.0-100.0) fL PT (9.0-12.0) sec INR (<1.2) Potassium (3.5-5.1) mmol/L BUN (7-17) mg/dL Creatinine (0.52-1.04) mg/dL POC Glucose (mg/dL) 145 H 119 H (75-99) mg/dL Urine Blood Small H (Negative) Urine RBC 6 H (0-5) /hpf Urine Bacteria Moderate H (None) /hpf 12/21/17 12/21/17 12/21/17 Range/Units 05:50 05:50 05:50 RBC 3.11 L (3.80-5.40) m/uL Hgb 10.1 L (11.4-16.0) gm/dL Hct 32.1 L (34.0-46.0) % MCV 103.2 H (80.0-100.0) fL PT 14.7 H (9.0-12.0) sec INR 1.6 H (<1.2) Potassium 3.4 L (3.5-5.1) mmol/L BUN 42 H (7-17) mg/dL Creatinine 1.45 H (0.52-1.04) mg/dL POC Glucose (mg/dL) (75-99) mg/dL Urine Blood (Negative) Urine RBC (0-5) /hpf Urine Bacteria (None) /hpf Microbiology - Last 24 Hours (Table) 12/17/17 14:10 Blood Culture - Preliminary Blood No Growth after 72 hours Assessment and Plan Plan: Assessment: #1 acute and chronic diastolic congestive heart failure #2 pneumonia #3 urinary tract infection #4 chronic atrial fibrillation #5 acute renal failure plan From cardiology's perspective, patient may be able to be discharged home once cleared by the primary. Follow-up appointment will be made in the office with his counter maker post discharge. We will follow her along with you now on an as -needed basis only, please don't hesitate to call with any questions. DNP note has been reviewed, I agree with a documented findings and plan of care. Patient was seen and examined.
[2017-12-21 16:52] LABS: Glucose,Whole Blood 132 mg/dL (75-99)
[2017-12-21 20:39] LABS: Glucose,Whole Blood 178 mg/dL (75-99)
[2017-12-22 05:54] LABS: Glucose,Whole Blood 145 mg/dL (75-99)
[2017-12-22] MEDS: INSULIN ASPART 100 UNIT/ML 1 ML 10 ML VIAL SQ SCH ×4 (05:57→21:16)
[2017-12-22 06:33] LABS: Basophils % (A) 0 %; Eosinophils % (A) 1 %; HCT 31.5 % (34.0-46.0); HGB 9.5 gm/dL (11.4-16.0); Hypochromasia Slight; Lymphocytes # (A) 0.7 k/uL (1.0-4.8); Lymphocytes % (A) 13 %; MCH 30.3 pg (25.0-35.0); MCHC 30.3 g/dL (31.0-37.0); MCV 100.2 fL (80.0-100.0); Macrocytosis Slight; Monocytes # (A) 0.4 k/uL (0-1.0); Monocytes % (A) 8 %; Neutrophils % (A) 78 %; Platelet Count 207 k/uL (150-450); RBC 3.15 m/uL (3.80-5.40); RDW 15.4 % (11.5-15.5); WBC 5.1 k/uL (3.8-10.6)
[2017-12-22 06:35] LABS: INR 1.8 (<1.2); Prothrombin Time 16.4 sec (9.0-12.0)
[2017-12-22 06:56] LABS: Calcium 8.8 mg/dL (8.4-10.2); Potassium 3.3 mmol/L (3.5-5.1)
[2017-12-22] MEDS ORDERED: Potassium Replacement Protocol 1 EACH MISC MISCELLANE PRN (08:01)
[2017-12-22] MEDS ORDERED: guaiFENesin SYRUP 100MG/5ML 200 MG/10 ML CUP PO PRN (08:04)
--- NOTE | 2017-12-22 08:08 | XR ---
EXAMINATION TYPE: XR chest 1V portable DATE OF EXAM: 12/22/2017 Comparison: 12/18/2017 Clinical History: 87 year-old female follow-up CHF Findings: Heart is borderline enlarged with diffuse interstitial prominence. This has somewhat improved in the interval. Hazy right basilar density remains. Left base underpenetrated and not well assessed. Impression: There has been interval improvement, likely with residual mild pulmonary vascular congestion. Hazy de nsity at the right base may represent layering pleural fluid and is relatively similar.
[2017-12-22] MEDS: methylPREDNISolone 4 MG TAB TAPER PO SCH (08:38)
[2017-12-22] MEDS: AMANTADINE HCL 100 MG CAP PO SCH ×2 (08:38→21:14)
[2017-12-22] MEDS: ASPIRIN 81 MG PO SCH (08:39)
[2017-12-22] MEDS: RIVAROXABAN 15 MG TAB PO SCH (08:39)
[2017-12-22] MEDS: AZITHROMYCIN 500 MG TAB PO SCH (08:39)
[2017-12-22] MEDS: METOPROLOL TARTRATE 50 MG TAB PO SCH (08:39)
[2017-12-22] MEDS: METOPROLOL TARTRATE 25 MG TAB PO SCH (08:39)
[2017-12-22] MEDS: FUROSEMIDE 10 MG/ML 4 ML VIAL IV SCH ×3 (08:39→23:39)
[2017-12-22] MEDS: CARBIDOPA-LEVODOPA 25-100 MG 1 EACH TAB PO SCH ×2 (08:39→21:14)
[2017-12-22] MEDS: ACETAMINOPHEN TAB 325 MG TAB PO PRN (08:39)
[2017-12-22] MEDS: POTASSIUM CHLORIDE ER 20 MEQ TAB.ER PO SCH ×3 (08:39→23:39)
[2017-12-22] MEDS: IPRATROPIUM-ALBUTEROL 3 ML NEB INHALATION SCH ×4 (08:55→21:16)
[2017-12-22] MEDS: SYMBICORT 160-4.5 MCG INHALER INHALATION SCH ×2 (08:55→21:16)
[2017-12-22] MEDS: NITROGLYCERIN OINT 1 INCH/GM PACKET TOPICAL SCH ×4 (10:56→21:14)
[2017-12-22] MEDS: FOLIC ACID 1 MG TAB PO SCH (10:58)
[2017-12-22] MEDS: THIAMINE 100 MG TAB PO SCH (10:58)
[2017-12-22] MEDS: MULTIVITAMINS, THERA 1 EACH TAB PO SCH (10:58)
[2017-12-22 11:47] LABS: Glucose,Whole Blood 217 mg/dL (75-99)
--- NOTE | 2017-12-22 11:58 | P.PN ---
Subjective Progress Note Date: 12/22/17 Principal diagnosis: Acute on chronic diastolic congestive heart failure Vanessa is a 87-year-old white female patient of Dr. Douglass, who presented to the emergency department on 12/27/2017 at 1321 with complaints of fatigue, weakness , difficulty walking, some wheezing and shortness of breath. was recently treated with an oral antibiotic for a urinary tract infection by her PCP. However her fatigue and weakness became progressively worse, and the family insisted that the patient go to the hospital for further evaluation and treatment. Patient was also having altered mental status status, with hallucinations and delirium. Brain CT on 12/17/2017 showed atrophy with. Ventricular white matter ischemic type changes. These changes were stable compared to previous exam on 07/20/2017. There were retention cysts versus air- fluid level right maxillary sinus. Chest x-ray from 12/17/2017 showed patchy density in the right medial lung base. Small left basilar pleural effusion or pleural thickening was noted. Twelve-lead EKG on 12/27/2017 showed atrial fibrillation with a rate of 63 bpm. Lab work showed WBC of 10.8, hemoglobin 11.1, INR is 2.2, patient is on Xarelto for her history of chronic atrial fibrillation. Patient was found to have acute kidney injury with BUN of 46, and creatinine of 1.93, and hyperkalemia of 6.1 present on admission. Troponins were elevated 3, and peaked at 0.125. Patient's proBNP was 14,100. Patient's urinalysis showed dark brown turbid urine with urine white blood cells at 163, and urine RBC and greater than 182. Patient was afebrile, her vitals remained stable throughout her stay, she is on room air, with O2 sat between 98-100 percent. Patient was started on Rocephin, Zithromax, IV Lasix, nebulized treatments and admitted for further management. The patient is seen again today 12/21/2017 in follow-up on the selective care unit. She is currently resting fairly comfortably in bed. He is disoriented to place and time. She is currently febrile at 100.7. No tachycardia. No tachypnea. Blood pressure stable. She is maintaining O2 saturations in the low 90s on 4 L/m per nasal cannula. Blood culture reveals no growth to date. Urine culture reveals no growth. No leukocytosis. Currently on azithromycin. Creatinine 1.45. Patient is seen again today 12/22/2017 in follow-up on the selective care unit. She is resting comfortably in bed. She is much more awake and alert today as compared to yesterday. She does have some continued shortness of breath. A loose nonproductive cough. She is maintaining good O2 saturations in the 90s on 3 L/m per nasal cannula. Temperature 100.3. Her blood cultures are revealing no growth. Urine culture revealed no growth. No leukocytosis. Hemoglobin 9.5. INR 1.8. Creatinine 1.20. She is maintained on diuretics. She is incontinent of urine. Objective - Vital Signs Vital signs: Vital Signs Temp 100.3 F H 12/22/17 10:53 Pulse 95 12/22/17 11:48 Resp 22 12/22/17 08:00 BP 170/68 12/22/17 08:00 Pulse Ox 96 12/22/17 08:00 Intake & Output 12/21/17 12/22/17 12/22/17 18:59 06:59 18:59 Intake Total 310 20 120 Balance 310 20 120 Weight 81.5 kg Intake: IV 20 0.9 20 Oral 310 120 Other: Voiding Method Diaper Diaper Incontinent Incontinent # Voids 1 - Exam GENERAL EXAM: Resting comfortably in bed, more awake and alert today. HEAD: Normocephalic. EYES: Normal reaction of pupils, equal size. NOSE: Clear with pink turbinates. THROAT: No erythema or exudates. NECK: No masses, no JVD. CHEST: No chest wall deformity. LUNGS: Equal air entry with faint crackles in the posterior bases more so on the right CVS: S1 and S2 normal with no audible murmur, regular rhythm. ABDOMEN: No hepatosplenomegaly, normal bowel sounds, no guarding or rigidity. SPINE: No scoliosis or deformity SKIN: No rashes CENTRAL NERVOUS SYSTEM: No focal deficits, tone is normal in all 4 extremities. EXTREMITIES: There is no peripheral edema. No clubbing, no cyanosis. Peripheral pulses are intact. - Labs CBC & Chem 7: 12/22/17 06:13 12/22/17 06:13 Labs: Abnormal Lab Results - Last 24 Hours (Table) 12/21/17 12/21/17 12/22/17 Range/Units 16:43 20:37 05:53 RBC (3.80-5.40) m/uL Hgb (11.4-16.0) gm/dL Hct (34.0-46.0) % MCV (80.0-100.0) fL MCHC (31.0-37.0) g/dL Lymphocytes # (1.0-4.8) k/uL PT (9.0-12.0) sec INR (<1.2) Potassium (3.5-5.1) mmol/L BUN (7-17) mg/dL Creatinine (0.52-1.04) mg/dL Glucose (74-99) mg/dL POC Glucose (mg/dL) 132 H 178 H 145 H (75-99) mg/dL 12/22/17 12/22/17 12/22/17 Range/Units 06:13 06:13 06:13 RBC 3.15 L (3.80-5.40) m/uL Hgb 9.5 L (11.4-16.0) gm/dL Hct 31.5 L (34.0-46.0) % MCV 100.2 H (80.0-100.0) fL MCHC 30.3 L (31.0-37.0) g/dL Lymphocytes # 0.7 L (1.0-4.8) k/uL PT 16.4 H (9.0-12.0) sec INR 1.8 H (<1.2) Potassium 3.3 L (3.5-5.1) mmol/L BUN 43 H (7-17) mg/dL Creatinine 1.20 H (0.52-1.04) mg/dL Glucose 141 H (74-99) mg/dL POC Glucose (mg/dL) (75-99) mg/dL 12/22/17 Range/Units 11:45 RBC (3.80-5.40) m/uL Hgb (11.4-16.0) gm/dL Hct (34.0-46.0) % MCV (80.0-100.0) fL MCHC (31.0-37.0) g/dL Lymphocytes # (1.0-4.8) k/uL PT (9.0-12.0) sec INR (<1.2) Potassium (3.5-5.1) mmol/L BUN (7-17) mg/dL Creatinine (0.52-1.04) mg/dL Glucose (74-99) mg/dL POC Glucose (mg/dL) 217 H (75-99) mg/dL Microbiology - Last 24 Hours (Table) 12/21/17 08:54 Blood Culture - Preliminary Blood No Growth after 24 hours 12/21/17 08:45 Blood Culture - Preliminary Blood No Growth after 24 hours 12/17/17 14:10 Blood Culture - Preliminary Blood No Growth after 96 hours Assessment and Plan Assessment: Impression: #1. Shortness of breath related to acute on chronic diastolic congestive heart failure. ProBNP was 14,100, troponins were mildly elevated and peaked at 0.125. Chest x-ray showed bilateral small pleural effusions, vascular congestion and interstitial changes, consistent with congestive heart failure #2. Acute sepsis related to acute urinary tract infection. Patient presented with progressive weakness, altered mental status, confusion, acute kidney injury , and evidence of dark brown turbid urine with multiple WBCs, and RBCs. Patient has been treated for a urinary tract infection on an outpatient basis by her PCP #3. History of bronchial asthma, with current exacerbation #4. Chronic persistent atrial fibrillation, on long-term anticoagulation with Xarelto #5. Acute kidney injury, creatinine on admission was 1.93, with BUN of 46, possibly related to acute tubular necrosis and hypoperfusion related to sepsis. Slight improvement today 12/22/2017 with a BUN of 43 creatinine 1.20 #6. Hyperkalemia, serum potassium was 6.1, present on admission, improved, with IV Lasix, currently down to 3.3. #7. Non-anion gap metabolic acidosis, secondary to acute renal failure, related to sepsis #8. Chronic macrocytic anemia #9. Coronary artery disease, with history of myocardial infarction #10. Hypertension #11. DJD Plan: The patient was seen and evaluated by Dr. Gilmore. Continue DuoNeb inhalations, Symbicort and Medrol Dosepak. Blood and urine cultures are negative. She remains on azithromycin. Anticoagulated with Xarelto. Continue diuretics. We will continue to follow make further recommendations based on her clinical status. I, the cosigning physician, performed a history & physical examination of the patient. Lungs sounds echo is in the posterior bases more so on the right. Maintaining good O2 saturations in the 90s on 3 L/m per nasal cannula. I discussed the assessment and plan of care with my nurse practitioner, Kalli Childs. I attest to the above note as dictated by her.
[2017-12-22] MEDS: SODIUM CHLORIDE 0.9% 1,000 ML IV SCH (15:54)
[2017-12-22 16:53] LABS: Glucose,Whole Blood 194 mg/dL (75-99)
[2017-12-22 21:01] LABS: Glucose,Whole Blood 150 mg/dL (75-99)
--- NOTE | 2017-12-22 23:35 | P.PN ---
Subjective Progress Note Date: 12/21/17 Principal diagnosis: Acute on chronic CHF Pleasant 87-year-old femalewith a history of atrial fibrillation, coronary artery disease, prior [place], diastolic congestive heart failure, diabetes, hypertension and COPD. Presented to the emergency department with complaints of weakness, near syncope and progressively worsening shortness of breath with exertion as well as orthopnea and lower extremity edema. Patient is currently being treated for acute on chronic CHF. On 12/21/2017 Patient is febrile this morning. Otherwise patient is confused and lethargic and could not provide any history. Still having leg swelling. Continued on IV diuresis. Blood cultures and urine cultures show no growth. Ceftriaxone has been discontinued. on azithromycin. Complete review of systems could not be obtained from the patient Current medications reviewed Objective - Vital Signs Vital signs: Vital Signs Temp 96.1 F L 12/21/17 20:00 Pulse 92 12/21/17 21:33 Resp 16 12/21/17 20:00 BP 109/53 12/21/17 20:00 Pulse Ox 95 12/21/17 21:20 Intake & Output 12/21/17 12/21/17 12/22/17 06:59 18:59 06:59 Intake Total 20 310 Balance 20 310 Weight 83.5 kg Intake: IV 20 0.9 20 Oral 310 Other: Voiding Method Diaper Diaper Diaper Incontinent Incontinent Incontinent # Voids 2 1 - Exam PHYSICAL EXAMINATION: Patient is lying in the bed comfortably, no acute distress, patient is lethargic and could not able to come in acute.. HEENT: Normocephalic. Neck is supple. Pupils reactive. Nostrils clear. Oral cavity is moist. Ears reveal no drainage. Neck reveals no JVD, carotid bruits, or thyromegaly. CHEST EXAMINATION: Trachea is central. Symmetrical expansion. Bilateral diminished air entry and rhonchi positive. CARDIAC: Normal S1, S2 with no gallops. No murmurs ABDOMEN: Soft. Bowel sounds normal. No organomegaly. No abdominal bruits. Extremities: 2+ edema. Redness and swelling. No clubbing or cyanosis Neurologically awake, alert but lethargic and confused.. No focal deficits noted Skin: No rash or skin lesions. Musculoskeletal: No joint swelling or deformity. Normal range of motion. - Labs CBC & Chem 7: 12/22/17 06:13 12/22/17 06:13 Labs: Abnormal Lab Results - Last 24 Hours (Table) 12/21/17 12/21/17 12/21/17 Range/Units 05:40 05:50 05:50 RBC 3.11 L (3.80-5.40) m/uL Hgb 10.1 L (11.4-16.0) gm/dL Hct 32.1 L (34.0-46.0) % MCV 103.2 H (80.0-100.0) fL PT (9.0-12.0) sec INR (<1.2) Potassium 3.4 L (3.5-5.1) mmol/L BUN 42 H (7-17) mg/dL Creatinine 1.45 H (0.52-1.04) mg/dL POC Glucose (mg/dL) (75-99) mg/dL Urine Blood Small H (Negative) Urine RBC 6 H (0-5) /hpf Urine Bacteria Moderate H (None) /hpf 12/21/17 12/21/17 12/21/17 Range/Units 05:50 16:43 20:37 RBC (3.80-5.40) m/uL Hgb (11.4-16.0) gm/dL Hct (34.0-46.0) % MCV (80.0-100.0) fL PT 14.7 H (9.0-12.0) sec INR 1.6 H (<1.2) Potassium (3.5-5.1) mmol/L BUN (7-17) mg/dL Creatinine (0.52-1.04) mg/dL POC Glucose (mg/dL) 132 H 178 H (75-99) mg/dL Urine Blood (Negative) Urine RBC (0-5) /hpf Urine Bacteria (None) /hpf Microbiology - Last 24 Hours (Table) 12/17/17 14:10 Blood Culture - Preliminary Blood No Growth after 96 hours Assessment and Plan Assessment: Shortness of breath secondary to acute on chronic CHF with diastolic dysfunction. Ejection fraction 55-60% Tracheobronchitis and possible pneumonia Acute on chronic kidney disease stage III COPD with mild exacerbation Hypokalemia Altered mental status possible metabolic encephalopathy multifactorial Macrocytic anemia Elevated troponin. Unlikely ACS Chronic atrial fibrillation Diabetes type 2 Hypertension, History of [place] Degenerative joint disease Parkinson's disease History of colon cancer resection and skin cancer Plan: Patient be continued on IV diuresis and antibiotics in the form of azithromycin. Repeat chest x-ray tomorrow. Pulmonary and cardiology is following. Continue with current management and further recommendations based on the clinical course. Time with Patient: Greater than 30
--- NOTE | 2017-12-22 23:37 | P.PN ---
Subjective Progress Note Date: 12/22/17 Principal diagnosis: Acute on chronic CHF Pleasant 87-year-old femalewith a history of atrial fibrillation, coronary artery disease, prior GA, diastolic congestive heart failure, diabetes, hypertension and COPD. Presented to the emergency department with complaints of weakness, near syncope and progressively worsening shortness of breath with exertion as well as orthopnea and lower extremity edema. Patient is currently being treated for acute on chronic CHF. On 12/21/2017 Patient is febrile this morning. Otherwise patient is confused and lethargic and could not provide any history. Still having leg swelling. Continued on IV diuresis. Blood cultures and urine cultures show no growth. Ceftriaxone has been discontinued. on azithromycin. 12/22/2017 Patient is still febrile today morning with T-max 100.2. Otherwise clinically improving. Patient is more awake and oriented today looks swelling improved as well. Chest x-ray showed improved aeration. Otherwise no chest pain no worsening short of breath no nausea vomiting abdominal pain or diarrhea. Discussed with his family at bedside in detail. All other review of systems negative except above Current medications reviewed Objective - Vital Signs Vital signs: Vital Signs Temp 98.2 F 12/22/17 20:00 Pulse 72 12/22/17 20:00 Resp 16 12/22/17 20:00 BP 139/72 12/22/17 20:00 Pulse Ox 96 12/22/17 20:00 Intake & Output 12/22/17 12/22/17 12/23/17 06:59 18:59 06:59 Intake Total 20 600 Balance 20 600 Weight 81.5 kg Intake: IV 20 0.9 20 Oral 600 Other: Voiding Method Diaper Diaper Incontinent Incontinent # Voids 2 - Exam PHYSICAL EXAMINATION: Patient is lying in the bed comfortably, no acute distress, awake alert and oriented.. HEENT: Normocephalic. Neck is supple. Pupils reactive. Nostrils clear. Oral cavity is moist. Ears reveal no drainage. Neck reveals no JVD, carotid bruits, or thyromegaly. CHEST EXAMINATION: Trachea is central. Symmetrical expansion. Bilateral diminished air entry basally.. CARDIAC: Normal S1, S2 with no gallops. No murmurs ABDOMEN: Soft. Bowel sounds normal. No organomegaly. No abdominal bruits. Extremities: 2+ pedal edema bilaterally. Swelling and redness Redness improved. No clubbing or cyanosis Neurologically awake, alert, oriented x3 with well-coordinated movements. No focal deficits noted Skin: No rash or skin lesions. Psychiatric: Coperative. Nonsuicidal Musculoskeletal: No joint swelling or deformity. Normal range of motion. - Labs CBC & Chem 7: 12/22/17 06:13 12/22/17 06:13 Labs: Abnormal Lab Results - Last 24 Hours (Table) 12/22/17 12/22/17 12/22/17 Range/Units 05:53 06:13 06:13 RBC 3.15 L (3.80-5.40) m/uL Hgb 9.5 L (11.4-16.0) gm/dL Hct 31.5 L (34.0-46.0) % MCV 100.2 H (80.0-100.0) fL MCHC 30.3 L (31.0-37.0) g/dL Lymphocytes # 0.7 L (1.0-4.8) k/uL PT (9.0-12.0) sec INR (<1.2) Potassium 3.3 L (3.5-5.1) mmol/L BUN 43 H (7-17) mg/dL Creatinine 1.20 H (0.52-1.04) mg/dL Glucose 141 H (74-99) mg/dL POC Glucose (mg/dL) 145 H (75-99) mg/dL 12/22/17 12/22/17 12/22/17 Range/Units 06:13 11:45 16:50 RBC (3.80-5.40) m/uL Hgb (11.4-16.0) gm/dL Hct (34.0-46.0) % MCV (80.0-100.0) fL MCHC (31.0-37.0) g/dL Lymphocytes # (1.0-4.8) k/uL PT 16.4 H (9.0-12.0) sec INR 1.8 H (<1.2) Potassium (3.5-5.1) mmol/L BUN (7-17) mg/dL Creatinine (0.52-1.04) mg/dL Glucose (74-99) mg/dL POC Glucose (mg/dL) 217 H 194 H (75-99) mg/dL 12/22/17 Range/Units 20:58 RBC (3.80-5.40) m/uL Hgb (11.4-16.0) gm/dL Hct (34.0-46.0) % MCV (80.0-100.0) fL MCHC (31.0-37.0) g/dL Lymphocytes # (1.0-4.8) k/uL PT (9.0-12.0) sec INR (<1.2) Potassium (3.5-5.1) mmol/L BUN (7-17) mg/dL Creatinine (0.52-1.04) mg/dL Glucose (74-99) mg/dL POC Glucose (mg/dL) 150 H (75-99) mg/dL Microbiology - Last 24 Hours (Table) 12/17/17 14:10 Blood Culture - Preliminary Blood No Growth after 120 hours 12/21/17 08:54 Blood Culture - Preliminary Blood No Growth after 24 hours 12/21/17 08:45 Blood Culture - Preliminary Blood No Growth after 24 hours Assessment and Plan Assessment: Shortness of breath secondary to acute on chronic CHF with diastolic dysfunction. Ejection fraction 55-60% Tracheobronchitis and possible pneumonia Acute on chronic kidney disease stage III COPD with mild exacerbation Hypokalemia Altered mental status possible metabolic encephalopathy multifactorial Macrocytic anemia Elevated troponin. Unlikely ACS Chronic atrial fibrillation Diabetes type 2 Hypertension, History of GA Degenerative joint disease Parkinson's disease History of colon cancer resection and skin cancer Plan: Patient be continued on IV diuresis and antibiotics in the form of azithromycin. Continue with steroids. Clinically improving. Pulmonary and cardiology is following. Continue with current management and further recommendations based on the clinical course. Time with Patient: Greater than 30
[2017-12-23] MEDS: POTASSIUM CHLORIDE ER 20 MEQ TAB.ER PO SCH (01:53)
[2017-12-23 05:30] LABS: Basophils % (A) 0 %; Eosinophils % (A) 0 %; HCT 23.7 % (34.0-46.0); Hypochromasia Moderate; Lymphocytes # (A) 0.9 k/uL (1.0-4.8); Lymphocytes % (A) 9 %; MCH 30.8 pg (25.0-35.0); MCHC 30.4 g/dL (31.0-37.0); MCV 101.2 fL (80.0-100.0); Macrocytosis Slight; Mean Platelet Volume 6.7; Monocytes # (A) 0.6 k/uL (0-1.0); Monocytes % (A) 5 %; Neutrophils # (A) 8.7 k/uL (1.3-7.7); Neutrophils % (A) 84 %; Platelet Count 244 k/uL (150-450); RBC 2.34 m/uL (3.80-5.40); RDW 15.4 % (11.5-15.5); WBC 10.4 k/uL (3.8-10.6)
[2017-12-23 05:31] LABS: HGB 7.2 gm/dL (11.4-16.0)
[2017-12-23 05:41] LABS: Calcium 8.2 mg/dL (8.4-10.2); Potassium 4.8 mmol/L (3.5-5.1)
[2017-12-23] MEDS: PANTOPRAZOLE 40 MG/10 ML VIAL IVP SCH ×2 (06:00→21:28)
[2017-12-23 06:37] LABS: Glucose,Whole Blood 157 mg/dL (75-99)
[2017-12-23] MEDS: IPRATROPIUM-ALBUTEROL 3 ML NEB INHALATION SCH ×4 (08:13→20:48)
[2017-12-23] MEDS: SYMBICORT 160-4.5 MCG INHALER INHALATION SCH ×2 (08:23→20:48)
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
[2017-12-23] MEDS ORDERED: Kcentra PER PHARMACY 1 EACH MISC MISCELLANE PRN (08:42)
[2017-12-23] MEDS: ASPIRIN 81 MG PO SCH (08:57)
[2017-12-23] MEDS ORDERED: HUMAN PROTHROMBIN COMPLX 500 UNIT/16 ML VIAL IV ONE (09:00)
[2017-12-23] MEDS: METOPROLOL TARTRATE 25 MG TAB PO SCH (09:08)
[2017-12-23] MEDS: AZITHROMYCIN 500 MG TAB PO SCH (09:09)
[2017-12-23] MEDS: METOPROLOL TARTRATE 50 MG TAB PO SCH (09:09)
[2017-12-23] MEDS: AMANTADINE HCL 100 MG CAP PO SCH ×2 (09:09→21:28)
[2017-12-23] MEDS: CARBIDOPA-LEVODOPA 25-100 MG 1 EACH TAB PO SCH ×2 (09:10→21:28)
[2017-12-23] MEDS: methylPREDNISolone 4 MG TAB TAPER PO SCH (09:10)
[2017-12-23] MEDS ORDERED: HUMAN PROTHROMBIN COMPLX IV ONE (10:00)
[2017-12-23] MEDS: DILTIAZEM 125 MG in SODIUM CHLORIDE 0.9% 100 ML IV SCH (10:40)
[2017-12-23 11:44] LABS: INR 1.5 (<1.2); Prothrombin Time 13.9 sec (9.0-12.0)
--- NOTE | 2017-12-23 12:11 | P.PN ---
Subjective Progress Note Date: 12/23/17 Principal diagnosis: Acute on chronic diastolic congestive heart failure, acute sepsis secondary to urinary tract infection, and acute GI bleeding rhonda is a 87-year-old white female patient of Dr. Douglass, who presented to the emergency department on 12/27/2017 at 1321 with complaints of fatigue, weakness , difficulty walking, some wheezing and shortness of breath. was recently treated with an oral antibiotic for a urinary tract infection by her PCP. However her fatigue and weakness became progressively worse, and the family insisted that the patient go to the hospital for further evaluation and treatment. Patient was also having altered mental status status, with hallucinations and delirium. Brain CT on 12/17/2017 showed atrophy with. Ventricular white matter ischemic type changes. These changes were stable compared to previous exam on 07/20/2017. There were retention cysts versus air- fluid level right maxillary sinus. Chest x-ray from 12/17/2017 showed patchy density in the right medial lung base. Small left basilar pleural effusion or pleural thickening was noted. Twelve-lead EKG on 12/27/2017 showed atrial fibrillation with a rate of 63 bpm. Lab work showed WBC of 10.8, hemoglobin 11.1, INR is 2.2, patient is on Xarelto for her history of chronic atrial fibrillation. Patient was found to have acute kidney injury with BUN of 46, and creatinine of 1.93, and hyperkalemia of 6.1 present on admission. Troponins were elevated 3, and peaked at 0.125. Patient's proBNP was 14,100. Patient's urinalysis showed dark brown turbid urine with urine white blood cells at 163, and urine RBC and greater than 182. Patient was afebrile, her vitals remained stable throughout her stay, she is on room air, with O2 sat between 98-100 percent. Patient was started on Rocephin, Zithromax, IV Lasix, nebulized treatments and admitted for further management. The patient is seen again today 12/21/2017 in follow-up on the selective care unit. She is currently resting fairly comfortably in bed. He is disoriented to place and time. She is currently febrile at 100.7. No tachycardia. No tachypnea. Blood pressure stable. She is maintaining O2 saturations in the low 90s on 4 L/m per nasal cannula. Blood culture reveals no growth to date. Urine culture reveals no growth. No leukocytosis. Currently on azithromycin. Creatinine 1.45. Patient is seen again today 12/22/2017 in follow-up on the selective care unit. She is resting comfortably in bed. She is much more awake and alert today as compared to yesterday. She does have some continued shortness of breath. A loose nonproductive cough. She is maintaining good O2 saturations in the 90s on 3 L/m per nasal cannula. Temperature 100.3. Her blood cultures are revealing no growth. Urine culture revealed no growth. No leukocytosis. Hemoglobin 9.5. INR 1.8. Creatinine 1.20. She is maintained on diuretics. She is incontinent of urine. Patient was seen early this morning on 12/23/2017, she was transferred to the intensive care unit, patient was admitted 6 days ago with shortness of breath and congestive heart failure, she developed this morning bright red blood per rectum with lower abdominal discomfort. Patient has been on aspirin and Xarelto. And she has been constipated for the last 5 days. She also had one episode of blood-tinged emesis, and mild nosebleed in the last 24 hours. Her admission hemoglobin was 11.1, and this morning was noted to be 7.2. Patient is receiving 1 unit of packed RBCs, her INR on admission was 2.2, presently 1.8 , just before I saw the patient, had small dark burgundy bowel movement around 6 AM. Patient was noted to be tachycardic, and atrial fibrillation rate is ranging between 120 to 1:30, and she was otherwise hemodynamically stable. Considering the patient was on Xarelto, I recommended giving the patient prothrombin complex concentrate. In the meantime the patient will be given at least 2 units of packed RBCs. Patient was evaluated by GI, and at this point may or may not consider colonoscopy. All her labs were reviewed, her BUN is 66 creatinine is 1.30. Chest x-ray from yesterday showed mild improvement in her pulmonary vascular congestion. And small pleural effusion was noted. Objective - Vital Signs Vital signs: Vital Signs Temp 97.5 F L 12/23/17 11:35 Pulse 120 H 12/23/17 11:35 Resp 24 12/23/17 11:35 BP 114/55 12/23/17 11:35 Pulse Ox 97 12/23/17 11:35 Intake & Output 12/22/17 12/23/17 12/23/17 18:59 06:59 18:59 Intake Total 600 310 Output Total 100 Balance 600 -100 310 Weight 79.5 kg Intake: Oral 600 Blood Product 310 Rc Pheresis 2 As3 Unit 0 [id number] Rc Pheresis As-3 Unit 310 [id number] Output: Emesis 100 Other: Voiding Method Diaper Diaper Incontinent Incontinent # Voids 2 1 # Bowel Movements 3 - Exam General appearance: Revealed an 87-year-old female, looks pale, slightly tachypneic, in mild respiratory distress. Patient is also noted to be tachycardic. HET: Atraumatic, normocephalic, slightly pale, dry mucous membranes. Neck: Supple, no neck masses, no JVD, no stridor. Dry mucous membranes were noted. No lymphadenopathy was appreciated.. Heart: S1 S2. Regular rate and rhythm. Lungs: No crackles or wheezes are heard. Diminished breath sounds at the bases. No chest wall tenderness. Abdomen: Obese, slightly tender, no rebound, no guarding, positive bowel sounds. No organomegaly was appreciated. Extremities: Right lower extremity hip region slightly edematous. Normal skin color and turgor. Neurological: No focal deficits. Strength and sensation are grossly intact. Lymphatics: No lymphadenopathy was appreciated. - Labs CBC & Chem 7: 12/23/17 05:09 12/23/17 05:09 Labs: Abnormal Lab Results - Last 24 Hours (Table) 12/22/17 12/22/17 12/23/17 Range/Units 16:50 20:58 03:00 RBC (3.80-5.40) m/uL Hgb (11.4-16.0) gm/dL Hct (34.0-46.0) % MCV (80.0-100.0) fL MCHC (31.0-37.0) g/dL Neutrophils # (1.3-7.7) k/uL Lymphocytes # (1.0-4.8) k/uL PT (9.0-12.0) sec INR (<1.2) BUN (7-17) mg/dL Creatinine (0.52-1.04) mg/dL Glucose (74-99) mg/dL POC Glucose (mg/dL) 194 H 150 H (75-99) mg/dL Calcium (8.4-10.2) mg/dL Stool Occult Blood Positive H (Negative) Crossmatch 12/23/17 12/23/17 12/23/17 Range/Units 05:09 05:09 05:10 RBC 2.34 L (3.80-5.40) m/uL Hgb 7.2 L D (11.4-16.0) gm/dL Hct 23.7 L (34.0-46.0) % MCV 101.2 H (80.0-100.0) fL MCHC 30.4 L (31.0-37.0) g/dL Neutrophils # 8.7 H (1.3-7.7) k/uL Lymphocytes # 0.9 L (1.0-4.8) k/uL PT (9.0-12.0) sec INR (<1.2) BUN 66 H (7-17) mg/dL Creatinine 1.30 H (0.52-1.04) mg/dL Glucose 157 H (74-99) mg/dL POC Glucose (mg/dL) (75-99) mg/dL Calcium 8.2 L (8.4-10.2) mg/dL Stool Occult Blood (Negative) Crossmatch See Detail 12/23/17 12/23/17 Range/Units 06:26 11:18 RBC (3.80-5.40) m/uL Hgb (11.4-16.0) gm/dL Hct (34.0-46.0) % MCV (80.0-100.0) fL MCHC (31.0-37.0) g/dL Neutrophils # (1.3-7.7) k/uL Lymphocytes # (1.0-4.8) k/uL PT 13.9 H (9.0-12.0) sec INR 1.5 H (<1.2) BUN (7-17) mg/dL Creatinine (0.52-1.04) mg/dL Glucose (74-99) mg/dL POC Glucose (mg/dL) 157 H (75-99) mg/dL Calcium (8.4-10.2) mg/dL Stool Occult Blood (Negative) Crossmatch Microbiology - Last 24 Hours (Table) 12/21/17 08:54 Blood Culture - Preliminary Blood No Growth after 48 hours 12/21/17 08:45 Blood Culture - Preliminary Blood No Growth after 48 hours 12/17/17 14:10 Blood Culture - Preliminary Blood No Growth after 120 hours Assessment and Plan Assessment: Impression: 1 acute GI bleeding, most likely lower GI in nature, exacerbated by coagulopathy and anticoagulation therapy. Not to mention, the patient has been on nonsteroidal anti-inflammatory therapy prior to her admission. 2 chronic atrial fibrillation 3 acute diastolic congestive heart failure, also related to atrial fibrillation. 4 history of colon cancer previous surgery. 5 acute coagulopathy secondary to Xarelto, we'll try to reverse using prothrombin complex concentrate 6 acute sepsis secondary to urinary tract infection 7 history of bronchial asthma presently stable 8 non-anion gap metabolic acidosis secondary to acute renal failure 9 history of underlying coronary artery disease and previous [place] 10 history of degenerative joint disease 11 history of benign essential hypertension 12 acute kidney injury secondary to acute tubular necrosis and hypoperfusion possibly related to sepsis. Recommendation: Continue present supportive care measures including blood products, blood transfusion, prothrombin complex concentrate, hold anticoagulation therapy all together, monitor closely in the ICU and address the atrial fibrillation as per cardiology, discussed her condition with GI on the case. Discussed condition with the nurse taking care of the patient, and recommendations were made on the chart. We'll follow closely in the ICU. Critical care time is 40 minutes Time with Patient: Greater than 30
[2017-12-23] MEDS: FUROSEMIDE 10 MG/ML 4 ML VIAL IV SCH ×2 (12:56→19:27)
[2017-12-23] MEDS: NITROGLYCERIN OINT 1 INCH/GM PACKET TOPICAL SCH ×4 (12:59→22:04)
[2017-12-23] MEDS: THIAMINE 100 MG TAB PO SCH (13:00)
[2017-12-23] MEDS: MULTIVITAMINS, THERA 1 EACH TAB PO SCH (13:00)
[2017-12-23] MEDS: FOLIC ACID 1 MG TAB PO SCH (13:02)
[2017-12-23 13:20] LABS: Glucose,Whole Blood 176 mg/dL (75-99)
[2017-12-23] MEDS: INSULIN ASPART 100 UNIT/ML 1 ML 10 ML VIAL SQ SCH ×3 (13:34→22:04)
[2017-12-23] MEDS: HYDROcodone/APAP 7.5-325MG 1 EACH TAB PO PRN ×2 (14:41→21:28)
[2017-12-23 16:09] LABS: Anisocytosis Slight; Basophils % (A) 0 %; Eosinophils % (A) 0 %; HCT 25.1 % (34.0-46.0); HGB 7.9 gm/dL (11.4-16.0); Hypochromasia Slight; Lymphocytes # (A) 0.8 k/uL (1.0-4.8); Lymphocytes % (A) 12 %; MCH 30.3 pg (25.0-35.0); MCHC 31.3 g/dL (31.0-37.0); MCV 96.9 fL (80.0-100.0); Macrocytosis Slight; Mean Platelet Volume 6.9; Monocytes # (A) 0.4 k/uL (0-1.0); Monocytes % (A) 6 %; Neutrophils # (A) 5.7 k/uL (1.3-7.7); Neutrophils % (A) 81 %; Platelet Count 168 k/uL (150-450); Poikilocytosis Slight; RBC 2.59 m/uL (3.80-5.40); RDW 16.3 % (11.5-15.5); WBC 7.1 k/uL (3.8-10.6)
[2017-12-23 22:05] LABS: Glucose,Whole Blood 194 mg/dL (75-99)
[2017-12-23] MEDS: SODIUM CHLORIDE 0.9% 1,000 ML IV SCH (22:05)
[2017-12-23 22:14] LABS: Anisocytosis Slight; HCT 26.8 % (34.0-46.0); HGB 8.1 gm/dL (11.4-16.0); Hypochromasia Marked; MCH 30.2 pg (25.0-35.0); MCHC 30.3 g/dL (31.0-37.0); MCV 99.8 fL (80.0-100.0); Macrocytosis Slight; Platelet Count 163 k/uL (150-450); Poikilocytosis Slight; RBC 2.69 m/uL (3.80-5.40); RDW 16.1 % (11.5-15.5); WBC 6.9 k/uL (3.8-10.6)
[2017-12-23 23:58] LABS: Glucose,Whole Blood 179 mg/dL (75-99)
[2017-12-24] MEDS: FUROSEMIDE 10 MG/ML 4 ML VIAL IV SCH ×4 (02:08→23:51)
[2017-12-24 05:29] LABS: Anisocytosis Slight; Basophils % (A) 0 %; Eosinophils % (A) 0 %; HCT 28.1 % (34.0-46.0); HGB 8.7 gm/dL (11.4-16.0); Hypochromasia Moderate; Lymphocytes # (A) 1.1 k/uL (1.0-4.8); Lymphocytes % (A) 12 %; MCH 30.7 pg (25.0-35.0); Macrocytosis Slight; Mean Platelet Volume 7.3; Monocytes # (A) 0.5 k/uL (0-1.0); Monocytes % (A) 5 %; Neutrophils # (A) 7.3 k/uL (1.3-7.7); Neutrophils % (A) 81 %; Platelet Count 201 k/uL (150-450); Poikilocytosis Slight; RBC 2.83 m/uL (3.80-5.40); RDW 16.5 % (11.5-15.5); WBC 9.1 k/uL (3.8-10.6)
[2017-12-24 05:36] LABS: INR 1.4 (<1.2); Prothrombin Time 12.9 sec (9.0-12.0)
[2017-12-24 05:38] LABS: Albumin 2.7 g/dL (3.5-5.0); Calcium 8.9 mg/dL (8.4-10.2); Potassium 4.4 mmol/L (3.5-5.1); Total Bilirubin 0.7 mg/dL (0.2-1.3); Total Protein 4.9 g/dL (6.3-8.2)
[2017-12-24] MEDS: INSULIN ASPART 100 UNIT/ML 1 ML 10 ML VIAL SQ SCH ×3 (05:40→21:21)
[2017-12-24 05:53] LABS: Glucose,Whole Blood 122 mg/dL (75-99)
[2017-12-24] MEDS: SYMBICORT 160-4.5 MCG INHALER INHALATION SCH ×2 (08:26→20:08)
[2017-12-24] MEDS: IPRATROPIUM-ALBUTEROL 3 ML NEB INHALATION SCH ×4 (08:26→20:07)
[2017-12-24] MEDS: HYDROcodone/APAP 7.5-325MG 1 EACH TAB PO PRN ×2 (09:22→21:20)
[2017-12-24] MEDS: PANTOPRAZOLE 40 MG/10 ML VIAL IVP SCH ×2 (09:22→21:20)
[2017-12-24] MEDS: methylPREDNISolone 4 MG TAB TAPER PO SCH (09:23)
[2017-12-24] MEDS: METOPROLOL TARTRATE 25 MG TAB PO SCH (09:23)
[2017-12-24] MEDS: METOPROLOL TARTRATE 50 MG TAB PO SCH (09:23)
[2017-12-24] MEDS: CARBIDOPA-LEVODOPA 25-100 MG 1 EACH TAB PO SCH ×2 (09:23→21:20)
[2017-12-24] MEDS: AZITHROMYCIN 500 MG TAB PO SCH (09:23)
[2017-12-24] MEDS: ASPIRIN 81 MG PO SCH (09:24)
[2017-12-24] MEDS: AMANTADINE HCL 100 MG CAP PO SCH ×2 (09:24→21:20)
[2017-12-24 11:51] LABS: Glucose,Whole Blood 207 mg/dL (75-99)
[2017-12-24] MEDS: NITROGLYCERIN OINT 1 INCH/GM PACKET TOPICAL SCH ×3 (11:52→21:21)
[2017-12-24] MEDS: DILTIAZEM 125 MG in SODIUM CHLORIDE 0.9% 100 ML IV SCH (11:53)
[2017-12-24] MEDS: MULTIVITAMINS, THERA 1 EACH TAB PO SCH (11:54)
[2017-12-24] MEDS: THIAMINE 100 MG TAB PO SCH (11:54)
--- NOTE | 2017-12-24 12:08 | P.PN ---
Subjective Progress Note Date: 12/24/17 Principal diagnosis: Acute on chronic diastolic congestive heart failure, acute sepsis secondary to urinary tract infection, and acute GI bleeding rhonda is a 87-year-old white female patient of Dr. Douglass, who presented to the emergency department on 12/27/2017 at 1321 with complaints of fatigue, weakness , difficulty walking, some wheezing and shortness of breath. was recently treated with an oral antibiotic for a urinary tract infection by her PCP. However her fatigue and weakness became progressively worse, and the family insisted that the patient go to the hospital for further evaluation and treatment. Patient was also having altered mental status status, with hallucinations and delirium. Brain CT on 12/17/2017 showed atrophy with. Ventricular white matter ischemic type changes. These changes were stable compared to previous exam on 07/20/2017. There were retention cysts versus air- fluid level right maxillary sinus. Chest x-ray from 12/17/2017 showed patchy density in the right medial lung base. Small left basilar pleural effusion or pleural thickening was noted. Twelve-lead EKG on 12/27/2017 showed atrial fibrillation with a rate of 63 bpm. Lab work showed WBC of 10.8, hemoglobin 11.1, INR is 2.2, patient is on Xarelto for her history of chronic atrial fibrillation. Patient was found to have acute kidney injury with BUN of 46, and creatinine of 1.93, and hyperkalemia of 6.1 present on admission. Troponins were elevated 3, and peaked at 0.125. Patient's proBNP was 14,100. Patient's urinalysis showed dark brown turbid urine with urine white blood cells at 163, and urine RBC and greater than 182. Patient was afebrile, her vitals remained stable throughout her stay, she is on room air, with O2 sat between 98-100 percent. Patient was started on Rocephin, Zithromax, IV Lasix, nebulized treatments and admitted for further management. The patient is seen again today 12/21/2017 in follow-up on the selective care unit. She is currently resting fairly comfortably in bed. He is disoriented to place and time. She is currently febrile at 100.7. No tachycardia. No tachypnea. Blood pressure stable. She is maintaining O2 saturations in the low 90s on 4 L/m per nasal cannula. Blood culture reveals no growth to date. Urine culture reveals no growth. No leukocytosis. Currently on azithromycin. Creatinine 1.45. Patient is seen again today 12/22/2017 in follow-up on the selective care unit. She is resting comfortably in bed. She is much more awake and alert today as compared to yesterday. She does have some continued shortness of breath. A loose nonproductive cough. She is maintaining good O2 saturations in the 90s on 3 L/m per nasal cannula. Temperature 100.3. Her blood cultures are revealing no growth. Urine culture revealed no growth. No leukocytosis. Hemoglobin 9.5. INR 1.8. Creatinine 1.20. She is maintained on diuretics. She is incontinent of urine. Patient was seen early this morning on 12/23/2017, she was transferred to the intensive care unit, patient was admitted 6 days ago with shortness of breath and congestive heart failure, she developed this morning bright red blood per rectum with lower abdominal discomfort. Patient has been on aspirin and Xarelto. And she has been constipated for the last 5 days. She also had one episode of blood-tinged emesis, and mild nosebleed in the last 24 hours. Her admission hemoglobin was 11.1, and this morning was noted to be 7.2. Patient is receiving 1 unit of packed RBCs, her INR on admission was 2.2, presently 1.8 , just before I saw the patient, had small dark burgundy bowel movement around 6 AM. Patient was noted to be tachycardic, and atrial fibrillation rate is ranging between 120 to 1:30, and she was otherwise hemodynamically stable. Considering the patient was on Xarelto, I recommended giving the patient prothrombin complex concentrate. In the meantime the patient will be given at least 2 units of packed RBCs. Patient was evaluated by GI, and at this point may or may not consider colonoscopy. All her labs were reviewed, her BUN is 66 creatinine is 1.30. Chest x-ray from yesterday showed mild improvement in her pulmonary vascular congestion. And small pleural effusion was noted Reevaluated today on 12/24/2017, patient remains in the treatment room in the intensive care unit, no further episodes of bleeding since yesterday.. Her last bowel movement was actually yesterday. Her hemoglobin today is 8.7, patient received only 2 unit of packed RBCs yesterday. Labs were all reviewed, BUN is up to 81 creatinine is 1.28, INR is 1.4 patient received prothrombin complex/k -centra yesterday because she was on Xarelto and she had significant bleeding. Heart rate seems to be also controlled, and the patient is hemodynamically stable. Patient is scheduled to undergo EGD today, and this will be done by Dr. Sutherland. Objective - Vital Signs Vital signs: Vital Signs Temp 98.4 F 12/24/17 08:00 Pulse 75 12/24/17 11:00 Resp 22 12/24/17 11:00 BP 98/45 12/24/17 11:00 Pulse Ox 96 12/24/17 11:00 Intake & Output 12/23/17 12/24/17 12/24/17 18:59 06:59 18:59 Intake Total 1175 685 125 Output Total 1000 1465 Balance 175 -780 125 Weight 79.5 kg 78.2 kg Intake: IV 110 0.9 40 Diltiazem 125 mg In 70 Sodium Chloride 0.9% 100 ml @ 5 MG/HR 5 mls/hr IV .Q24H [facility] Rx#:[id number] Intake, IV Titration 315 215 125 Amount Diltiazem 125 mg In 45 55 125 Sodium Chloride 0.9% 100 ml @ 5 MG/HR 5 mls/hr IV .Q24H [facility] Rx#:[id number] Empty Bag 1 bag @ 504 mls 50 /hr IV .Q10M ONE with Human Prothrombin Complx 2,200 unit Rx#:[id number] Sodium Chloride 0.9% 1, 220 160 000 ml @ 20 mls/hr IV . Q24H [facility] Rx#:[id number] Oral 240 360 Blood Product 620 Rc Pheresis 2 As3 Unit 310 [id number] Rc Pheresis As-3 Unit 310 [id number] Output: Urine 1000 1465 Other: Voiding Method Indwelling Catheter Indwelling Catheter Indwelling Catheter - Exam General appearance: Revealed an 87-year-old female, looks pale, in no form of respiratory distress. HET: Atraumatic, normocephalic, slightly pale, dry mucous membranes. Neck: Supple, no neck masses, no JVD, no stridor. Dry mucous membranes were noted. No lymphadenopathy was appreciated.. Heart: S1 S2. ir-Regular rate and rhythm. Lungs: No crackles or wheezes are heard. Diminished breath sounds at the bases. No chest wall tenderness. Abdomen: Obese, slightly tender, no rebound, no guarding, positive bowel sounds. No organomegaly was appreciated. Extremities: Right lower extremity hip region slightly edematous. Normal skin color and turgor. Neurological: No focal deficits. Strength and sensation are grossly intact. Lymphatics: No lymphadenopathy was appreciated. - Labs CBC & Chem 7: 12/24/17 05:12 12/24/17 05:12 Labs: Abnormal Lab Results - Last 24 Hours (Table) 12/23/17 12/23/17 12/23/17 Range/Units 05:10 13:18 15:54 RBC 2.59 L (3.80-5.40) m/uL Hgb 7.9 L (11.4-16.0) gm/dL Hct 25.1 L (34.0-46.0) % MCHC (31.0-37.0) g/dL RDW 16.3 H (11.5-15.5) % Lymphocytes # 0.8 L (1.0-4.8) k/uL PT (9.0-12.0) sec INR (<1.2) BUN (7-17) mg/dL Creatinine (0.52-1.04) mg/dL Glucose (74-99) mg/dL POC Glucose (mg/dL) 176 H (75-99) mg/dL Total Protein (6.3-8.2) g/dL Albumin (3.5-5.0) g/dL Crossmatch See Detail 12/23/17 12/23/17 12/23/17 Range/Units 21:57 22:03 23:56 RBC 2.69 L (3.80-5.40) m/uL Hgb 8.1 L (11.4-16.0) gm/dL Hct 26.8 L (34.0-46.0) % MCHC 30.3 L (31.0-37.0) g/dL RDW 16.1 H (11.5-15.5) % Lymphocytes # (1.0-4.8) k/uL PT (9.0-12.0) sec INR (<1.2) BUN (7-17) mg/dL Creatinine (0.52-1.04) mg/dL Glucose (74-99) mg/dL POC Glucose (mg/dL) 194 H 179 H (75-99) mg/dL Total Protein (6.3-8.2) g/dL Albumin (3.5-5.0) g/dL Crossmatch 12/24/17 12/24/17 12/24/17 Range/Units 05:12 05:12 05:12 RBC 2.83 L (3.80-5.40) m/uL Hgb 8.7 L (11.4-16.0) gm/dL Hct 28.1 L (34.0-46.0) % MCHC (31.0-37.0) g/dL RDW 16.5 H (11.5-15.5) % Lymphocytes # (1.0-4.8) k/uL PT 12.9 H (9.0-12.0) sec INR 1.4 H (<1.2) BUN 81 H* (7-17) mg/dL Creatinine 1.28 H (0.52-1.04) mg/dL Glucose 139 H (74-99) mg/dL POC Glucose (mg/dL) (75-99) mg/dL Total Protein 4.9 L (6.3-8.2) g/dL Albumin 2.7 L (3.5-5.0) g/dL Crossmatch 12/24/17 12/24/17 Range/Units 05:33 11:46 RBC (3.80-5.40) m/uL Hgb (11.4-16.0) gm/dL Hct (34.0-46.0) % MCHC (31.0-37.0) g/dL RDW (11.5-15.5) % Lymphocytes # (1.0-4.8) k/uL PT (9.0-12.0) sec INR (<1.2) BUN (7-17) mg/dL Creatinine (0.52-1.04) mg/dL Glucose (74-99) mg/dL POC Glucose (mg/dL) 122 H 207 H (75-99) mg/dL Total Protein (6.3-8.2) g/dL Albumin (3.5-5.0) g/dL Crossmatch Microbiology - Last 24 Hours (Table) 12/21/17 08:54 Blood Culture - Preliminary Blood No Growth after 72 hours 12/21/17 08:45 Blood Culture - Preliminary Blood No Growth after 72 hours 12/17/17 14:10 Blood Culture - Final Blood No Growth after 144 hours Assessment and Plan Assessment: Impression: 1 acute GI bleeding, most likely lower GI in nature, exacerbated by coagulopathy and anticoagulation therapy. Not to mention, the patient has been on nonsteroidal anti-inflammatory therapy prior to her admission. 2 chronic atrial fibrillation 3 acute diastolic congestive heart failure, also related to atrial fibrillation. 4 history of colon cancer previous surgery. 5 acute coagulopathy secondary to Xarelto, we'll try to reverse using prothrombin complex concentrate 6 acute sepsis secondary to urinary tract infection 7 history of bronchial asthma presently stable 8 non-anion gap metabolic acidosis secondary to acute renal failure 9 history of underlying coronary artery disease and previous [place] 10 history of degenerative joint disease 11 history of benign essential hypertension 12 acute kidney injury secondary to acute tubular necrosis and hypoperfusion possibly related to sepsis. Recommendation: Continue present supportive care measures i continue to monitor CBC on a daily basis, patient is scheduled for EGD today, discussed her condition with her son at bedside today. We'll continue to follow. Depending on the findings by the tank car repairer today, further recommendations to follow. Time with Patient: Less than 30
[2017-12-24] MEDS ORDERED: LIDOCAINE 1% INJ 10MG/ML (20 ML MDV) ONE (13:43)
[2017-12-24] MEDS ORDERED: PHENYLEPHRINE-0.9% NACL SYG 1 MG/10 ML SYRINGE ONE (13:43)
[2017-12-24] MEDS ORDERED: IV FLUID CONTINUATION 1,000 ML IV ONE (13:43)
[2017-12-24] MEDS ORDERED: PROPOFOL 10 MG/ML 20 ML VIAL IV ONE (13:43)
[2017-12-24] MEDS ORDERED: EPINEPHrine 10 ML SYRINGE (0.1 MG/ML) MISCELLANE ONE (14:06)
--- NOTE | 2017-12-24 14:17 | P.PCN ---
Date of Procedure: 12/24/17 Procedure(s) Performed: BRIEF HISTORY: Patient is a 87-year-old, pleasant, white female, admitted to the hospital with exacerbation of CHF. She has history of A. fib and has been on Xarelto. While in the hospital she developed significant GI bleed with multiple maroon colored stools and 1 episode of coffee-ground emesis and was transferred to the intensive care unit. She dropped her hemoglobin from 9-7 requiring 2 units of blood transfusion. She received Kcentra yesterday for reversal of coagulopathy related to Xarelto. Last hemoglobin is 8.5 g/dL. She is scheduled for an upper endoscopy for possible upper GI source of bleeding.. PROCEDURE PERFORMED: Esophagogastroduodenoscopy with injection epinephrine, cautery and resolution clip placement. PREOPERATIVE DIAGNOSIS: Acute GI bleed. IV sedation per anesthesia. PROCEDURE: After informed consent was obtained, the patient was brought into the endoscopy unit. IV sedation was administered by Anesthesia under continuous monitoring. Initially the Olympus GIF-140 video endoscope was inserted into the mouth. Esophagus intubated without any difficulty. It was gradually advanced into the stomach and duodenum and carefully examined. She duodenal sweep there was a 1 cm superficial ulceration identified with active oozing. Initially I proceeded with resolution clip placement despite which there was active oozing identified. I attempted a second resolution clip but was not successful. At this time 1 in 10,000 epinephrine was injected at the site of bleeding and 6 mL was injected with good hemostasis. Following this using a gold probe artery was performed with good hemostasis. The scope at this time was withdrawn to the stomach, adequately insufflated with air, and upon careful examination, mucosa of the antrum, body, cardia and the fundus appeared normal. The scope was then withdrawn into the esophagus. The GE junction was located at 39 cm from the incisors. The esophagus appeared normal. There were no erosions or ulcerations seen and the patient tolerated the procedure well. IMPRESSION: 1. Actively oozing duodenal ulcer along the duodenal sweep measuring 1 cm in size status post resolution clip placement, injection epinephrine and cautery with a gold probe with good hemostasis.. 2. Gastritis. RECOMMENDATIONS: The findings of this examination were discussed with the patient as well as a family. She will be continued on IV Protonix 40 mg every 12 hours and a clear liquid diet.
[2017-12-24] MEDS: SODIUM CHLORIDE 0.9% 1,000 ML IV SCH (18:29)
[2017-12-24] MEDS: FOLIC ACID 1 MG TAB PO SCH (18:30)
[2017-12-24 18:53] LABS: Glucose,Whole Blood 161 mg/dL (75-99)
[2017-12-24 21:16] LABS: Glucose,Whole Blood 173 mg/dL (75-99)
[2017-12-25] MEDS: INSULIN ASPART 100 UNIT/ML 1 ML 10 ML VIAL SQ SCH ×5 (00:09→20:37)
[2017-12-25 00:25] LABS: Glucose,Whole Blood 172 mg/dL (75-99)
--- NOTE | 2017-12-25 00:31 | P.PN ---
Subjective Progress Note Date: 12/23/17 Principal diagnosis: Acute on chronic CHF Pleasant 87-year-old femalewith a history of atrial fibrillation, coronary artery disease, prior [place], diastolic congestive heart failure, diabetes, hypertension and COPD. Presented to the emergency department with complaints of weakness, near syncope and progressively worsening shortness of breath with exertion as well as orthopnea and lower extremity edema. Patient is currently being treated for acute on chronic CHF. On 12/21/2017 Patient is febrile this morning. Otherwise patient is confused and lethargic and could not provide any history. Still having leg swelling. Continued on IV diuresis. Blood cultures and urine cultures show no growth. Ceftriaxone has been discontinued. on azithromycin. 12/22/2017 Patient is still febrile today morning with T-max 100.2. Otherwise clinically improving. Patient is more awake and oriented today looks swelling improved as well. Chest x-ray showed improved aeration. Otherwise no chest pain no worsening short of breath no nausea vomiting abdominal pain or diarrhea. Discussed with his family at bedside in detail. 12/23/2017 Patient had blood in the stool and hematemesis. Patient was transferred to MICU for close monitoring. Hemoglobin 7.2 today. Otherwise patient was seen by GI and scheduled for endoscopy tomorrow. Otherwise breathing status is stable. Patient has been afebrile. Denied any chest pain. Leg swelling improving. Also started on Cardizem drip due to A. fib with rapid ventricular Rate All other review of systems negative except above Current medications reviewed Objective - Vital Signs Vital signs: Vital Signs Temp 99.1 F 12/23/17 13:40 Pulse 89 12/23/17 15:00 Resp 20 12/23/17 15:00 BP 110/42 12/23/17 15:00 Pulse Ox 99 12/23/17 15:00 Intake & Output 12/22/17 12/23/17 12/23/17 18:59 06:59 18:59 Intake Total 600 1100 Output Total 100 750 Balance 600 -100 350 Weight 79.5 kg Intake: Intake, IV Titration 240 Amount Diltiazem 125 mg In 30 Sodium Chloride 0.9% 100 ml @ 5 MG/HR 5 mls/hr IV .Q24H [facility] Rx#:[id number] Empty Bag 1 bag @ 504 mls 50 /hr IV .Q10M ONE with Human Prothrombin Complx 2,200 unit Rx#:[id number] Sodium Chloride 0.9% 1, 160 000 ml @ 20 mls/hr IV . Q24H [facility] Rx#:[id number] Oral 600 240 Blood Product 620 Rc Pheresis 2 As3 Unit 310 [id number] Rc Pheresis As-3 Unit 310 [id number] Output: Urine 750 Emesis 100 Other: Voiding Method Diaper Diaper Indwelling Catheter Incontinent Incontinent # Voids 2 1 # Bowel Movements 3 - Exam PHYSICAL EXAMINATION: Patient is lying in the bed comfortably, no acute distress, awake alert and oriented.. HEENT: Normocephalic. Neck is supple. Pupils reactive. Nostrils clear. Oral cavity is moist. Ears reveal no drainage. Neck reveals no JVD, carotid bruits, or thyromegaly. CHEST EXAMINATION: Trachea is central. Symmetrical expansion. Bilateral diminished air entry basally.. CARDIAC: Normal S1, S2 with no gallops. No murmurs ABDOMEN: Soft. Bowel sounds normal. No organomegaly. No abdominal bruits. Extremities: 2+ pedal edema bilaterally. Swelling and redness Redness improved. No clubbing or cyanosis Neurologically awake, alert, oriented x3 with well-coordinated movements. No focal deficits noted Skin: No rash or skin lesions. Psychiatric: Coperative. Nonsuicidal Musculoskeletal: No joint swelling or deformity. Normal range of motion. - Labs CBC & Chem 7: 12/24/17 05:12 12/24/17 05:12 Labs: Abnormal Lab Results - Last 24 Hours (Table) 12/22/17 12/22/17 12/23/17 Range/Units 16:50 20:58 03:00 RBC (3.80-5.40) m/uL Hgb (11.4-16.0) gm/dL Hct (34.0-46.0) % MCV (80.0-100.0) fL MCHC (31.0-37.0) g/dL RDW (11.5-15.5) % Neutrophils # (1.3-7.7) k/uL Lymphocytes # (1.0-4.8) k/uL PT (9.0-12.0) sec INR (<1.2) BUN (7-17) mg/dL Creatinine (0.52-1.04) mg/dL Glucose (74-99) mg/dL POC Glucose (mg/dL) 194 H 150 H (75-99) mg/dL Calcium (8.4-10.2) mg/dL Stool Occult Blood Positive H (Negative) Crossmatch 12/23/17 12/23/17 12/23/17 Range/Units 05:09 05:09 05:10 RBC 2.34 L (3.80-5.40) m/uL Hgb 7.2 L D (11.4-16.0) gm/dL Hct 23.7 L (34.0-46.0) % MCV 101.2 H (80.0-100.0) fL MCHC 30.4 L (31.0-37.0) g/dL RDW (11.5-15.5) % Neutrophils # 8.7 H (1.3-7.7) k/uL Lymphocytes # 0.9 L (1.0-4.8) k/uL PT (9.0-12.0) sec INR (<1.2) BUN 66 H (7-17) mg/dL Creatinine 1.30 H (0.52-1.04) mg/dL Glucose 157 H (74-99) mg/dL POC Glucose (mg/dL) (75-99) mg/dL Calcium 8.2 L (8.4-10.2) mg/dL Stool Occult Blood (Negative) Crossmatch See Detail 12/23/17 12/23/17 12/23/17 Range/Units 06:26 11:18 13:18 RBC (3.80-5.40) m/uL Hgb (11.4-16.0) gm/dL Hct (34.0-46.0) % MCV (80.0-100.0) fL MCHC (31.0-37.0) g/dL RDW (11.5-15.5) % Neutrophils # (1.3-7.7) k/uL Lymphocytes # (1.0-4.8) k/uL PT 13.9 H (9.0-12.0) sec INR 1.5 H (<1.2) BUN (7-17) mg/dL Creatinine (0.52-1.04) mg/dL Glucose (74-99) mg/dL POC Glucose (mg/dL) 157 H 176 H (75-99) mg/dL Calcium (8.4-10.2) mg/dL Stool Occult Blood (Negative) Crossmatch 12/23/17 Range/Units 15:54 RBC 2.59 L (3.80-5.40) m/uL Hgb 7.9 L (11.4-16.0) gm/dL Hct 25.1 L (34.0-46.0) % MCV (80.0-100.0) fL MCHC (31.0-37.0) g/dL RDW 16.3 H (11.5-15.5) % Neutrophils # (1.3-7.7) k/uL Lymphocytes # 0.8 L (1.0-4.8) k/uL PT (9.0-12.0) sec INR (<1.2) BUN (7-17) mg/dL Creatinine (0.52-1.04) mg/dL Glucose (74-99) mg/dL POC Glucose (mg/dL) (75-99) mg/dL Calcium (8.4-10.2) mg/dL Stool Occult Blood (Negative) Crossmatch Microbiology - Last 24 Hours (Table) 12/21/17 08:54 Blood Culture - Preliminary Blood No Growth after 48 hours 12/21/17 08:45 Blood Culture - Preliminary Blood No Growth after 48 hours 12/17/17 14:10 Blood Culture - Preliminary Blood No Growth after 120 hours Assessment and Plan Assessment: Shortness of breath secondary to acute on chronic CHF with diastolic dysfunction. Ejection fraction 55-60% Acute blood loss anemia secondary to GI bleed possible upper Tracheobronchitis . No pneumonia on chest x-ray Acute on chronic kidney disease stage III COPD with mild exacerbation Hypokalemia Altered mental status possible metabolic encephalopathy multifactorial. Improved Macrocytic anemia Elevated troponin. Unlikely ACS Chronic atrial fibrillation Diabetes type 2 Hypertension, History of [place] Degenerative joint disease Parkinson's disease History of colon cancer resection and skin cancer Plan: Patient be continued on IV diuresis and antibiotics in the form of azithromycin. Continue with steroids. Continue with Protonix IV.. Patient underlying 2 units of blood transfusion today. GI is recommending EGD likely tomorrow. Pulmonary and cardiology is following. Continue with current management and further recommendations based on the clinical course. Prognosis is guarded with multiple medical problems and comorbid conditions. Time with Patient: Greater than 30
--- NOTE | 2017-12-25 00:33 | P.PN ---
Subjective Progress Note Date: 12/24/17 Principal diagnosis: Acute on chronic CHF Pleasant 87-year-old femalewith a history of atrial fibrillation, coronary artery disease, prior [place], diastolic congestive heart failure, diabetes, hypertension and COPD. Presented to the emergency department with complaints of weakness, near syncope and progressively worsening shortness of breath with exertion as well as orthopnea and lower extremity edema. Patient is currently being treated for acute on chronic CHF. On 12/21/2017 Patient is febrile this morning. Otherwise patient is confused and lethargic and could not provide any history. Still having leg swelling. Continued on IV diuresis. Blood cultures and urine cultures show no growth. Ceftriaxone has been discontinued. on azithromycin. 12/22/2017 Patient is still febrile today morning with T-max 100.2. Otherwise clinically improving. Patient is more awake and oriented today looks swelling improved as well. Chest x-ray showed improved aeration. Otherwise no chest pain no worsening short of breath no nausea vomiting abdominal pain or diarrhea. Discussed with his family at bedside in detail. 12/23/2017 Patient had blood in the stool and hematemesis. Patient was transferred to MICU for close monitoring. Hemoglobin 7.2 today. Otherwise patient was seen by GI and scheduled for endoscopy tomorrow. Otherwise breathing status is stable. Patient has been afebrile. Denied any chest pain. Leg swelling improving. Also started on Cardizem drip due to A. fib with rapid ventricular Rate. 12/24/2017 Patient denied any worsening shortness of breath or chest pain. Continues to be monitored in the ICU. Otherwise hemoglobin is 8.7 today. Endoscopic today afternoon. No, no fever chills. No other acute overnight issues. All other review of systems negative except above Current medications reviewed Objective - Vital Signs Vital signs: Vital Signs Temp 98.3 F 12/24/17 20:00 Pulse 97 12/24/17 21:00 Resp 20 12/24/17 21:00 BP 134/52 12/24/17 21:00 Pulse Ox 99 12/24/17 20:00 Intake & Output 12/24/17 12/24/17 12/25/17 06:59 18:59 06:59 Intake Total 685 375 75 Output Total 6525 755 325 Balance -225 -380 -355 Weight 78.2 kg 78.2 kg Intake: IV 110 250 75 0.9 40 160 60 Diltiazem 125 mg In 70 40 15 Sodium Chloride 0.9% 100 ml @ 5 MG/HR 5 mls/hr IV .Q24H [facility] Rx#:[id number] Intake, IV Titration 215 125 Amount Diltiazem 125 mg In 55 125 Sodium Chloride 0.9% 100 ml @ 5 MG/HR 5 mls/hr IV .Q24H [facility] Rx#:[id number] Sodium Chloride 0.9% 1, 160 000 ml @ 20 mls/hr IV . Q24H [facility] Rx#:[id number] Oral 360 Output: Urine 1465 755 325 Other: Voiding Method Indwelling Catheter Indwelling Catheter - Exam PHYSICAL EXAMINATION: Patient is lying in the bed comfortably, no acute distress, awake alert and oriented.. HEENT: Normocephalic. Neck is supple. Pupils reactive. Nostrils clear. Oral cavity is moist. Ears reveal no drainage. Neck reveals no JVD, carotid bruits, or thyromegaly. CHEST EXAMINATION: Trachea is central. Symmetrical expansion. Bilateral diminished air entry basally.. CARDIAC: Normal S1, S2 with no gallops. No murmurs ABDOMEN: Soft. Bowel sounds normal. No organomegaly. No abdominal bruits. Extremities: 2+ pedal edema bilaterally. Swelling and redness Redness improved. No clubbing or cyanosis Neurologically awake, alert, oriented x3 with well-coordinated movements. No focal deficits noted Skin: No rash or skin lesions. Psychiatric: Coperative. Nonsuicidal Musculoskeletal: No joint swelling or deformity. Normal range of motion. - Labs CBC & Chem 7: 12/24/17 05:12 12/24/17 05:12 Labs: Abnormal Lab Results - Last 24 Hours (Table) 12/23/17 12/23/17 12/23/17 Range/Units 21:57 22:03 23:56 RBC 2.69 L (3.80-5.40) m/uL Hgb 8.1 L (11.4-16.0) gm/dL Hct 26.8 L (34.0-46.0) % MCHC 30.3 L (31.0-37.0) g/dL RDW 16.1 H (11.5-15.5) % PT (9.0-12.0) sec INR (<1.2) BUN (7-17) mg/dL Creatinine (0.52-1.04) mg/dL Glucose (74-99) mg/dL POC Glucose (mg/dL) 194 H 179 H (75-99) mg/dL Total Protein (6.3-8.2) g/dL Albumin (3.5-5.0) g/dL 12/24/17 12/24/17 12/24/17 Range/Units 05:12 05:12 05:12 RBC 2.83 L (3.80-5.40) m/uL Hgb 8.7 L (11.4-16.0) gm/dL Hct 28.1 L (34.0-46.0) % MCHC (31.0-37.0) g/dL RDW 16.5 H (11.5-15.5) % PT 12.9 H (9.0-12.0) sec INR 1.4 H (<1.2) BUN 81 H* (7-17) mg/dL Creatinine 1.28 H (0.52-1.04) mg/dL Glucose 139 H (74-99) mg/dL POC Glucose (mg/dL) (75-99) mg/dL Total Protein 4.9 L (6.3-8.2) g/dL Albumin 2.7 L (3.5-5.0) g/dL 12/24/17 12/24/17 12/24/17 Range/Units 05:33 11:46 18:32 RBC (3.80-5.40) m/uL Hgb (11.4-16.0) gm/dL Hct (34.0-46.0) % MCHC (31.0-37.0) g/dL RDW (11.5-15.5) % PT (9.0-12.0) sec INR (<1.2) BUN (7-17) mg/dL Creatinine (0.52-1.04) mg/dL Glucose (74-99) mg/dL POC Glucose (mg/dL) 122 H 207 H 161 H (75-99) mg/dL Total Protein (6.3-8.2) g/dL Albumin (3.5-5.0) g/dL 12/24/17 Range/Units 21:13 RBC (3.80-5.40) m/uL Hgb (11.4-16.0) gm/dL Hct (34.0-46.0) % MCHC (31.0-37.0) g/dL RDW (11.5-15.5) % PT (9.0-12.0) sec INR (<1.2) BUN (7-17) mg/dL Creatinine (0.52-1.04) mg/dL Glucose (74-99) mg/dL POC Glucose (mg/dL) 173 H (75-99) mg/dL Total Protein (6.3-8.2) g/dL Albumin (3.5-5.0) g/dL Microbiology - Last 24 Hours (Table) 12/21/17 08:54 Blood Culture - Preliminary Blood No Growth after 72 hours 12/21/17 08:45 Blood Culture - Preliminary Blood No Growth after 72 hours 12/17/17 14:10 Blood Culture - Final Blood No Growth after 144 hours Assessment and Plan Assessment: Shortness of breath secondary to acute on chronic CHF with diastolic dysfunction. Ejection fraction 55-60% Acute blood loss anemia secondary to GI bleed possible upper Tracheobronchitis . No pneumonia on chest x-ray Acute on chronic kidney disease stage III COPD with mild exacerbation Hypokalemia Altered mental status possible metabolic encephalopathy multifactorial. Improved Macrocytic anemia Elevated troponin. Unlikely ACS Chronic atrial fibrillation Diabetes type 2 Hypertension, History of [place] Degenerative joint disease Parkinson's disease History of colon cancer resection and skin cancer Plan: Patient be continued on IV diuresis and antibiotics in the form of azithromycin. Continue with steroids. Continue with Protonix IV.. Patient underwent 2 units of blood transfusion. GI is recommending EGD today afternoon. Pulmonary and cardiology is following. Continue with current management and further recommendations based on the clinical course. Prognosis is guarded with multiple medical problems and comorbid conditions. Time with Patient: Greater than 30
[2017-12-25] MEDS: HYDROcodone/APAP 7.5-325MG 1 EACH TAB PO PRN ×2 (04:49→20:37)
[2017-12-25 05:47] LABS: Anisocytosis Slight; Basophils % (A) 0 %; Eosinophils % (A) 0 %; HCT 25.7 % (34.0-46.0); HGB 7.8 gm/dL (11.4-16.0); Hypochromasia Moderate; Lymphocytes # (A) 1.1 k/uL (1.0-4.8); Lymphocytes % (A) 11 %; MCH 30.2 pg (25.0-35.0); MCHC 30.4 g/dL (31.0-37.0); MCV 99.5 fL (80.0-100.0); Macrocytosis Slight; Mean Platelet Volume 7.2; Monocytes # (A) 0.4 k/uL (0-1.0); Monocytes % (A) 5 %; Neutrophils # (A) 7.7 k/uL (1.3-7.7); Neutrophils % (A) 82 %; Platelet Count 233 k/uL (150-450); Poikilocytosis Slight; RBC 2.58 m/uL (3.80-5.40); RDW 16.2 % (11.5-15.5); WBC 9.4 k/uL (3.8-10.6)
[2017-12-25 06:06] LABS: Calcium 8.8 mg/dL (8.4-10.2); Potassium 3.8 mmol/L (3.5-5.1)
[2017-12-25 06:37] LABS: Glucose,Whole Blood 159 mg/dL (75-99)
[2017-12-25] MEDS: DILTIAZEM 125 MG in SODIUM CHLORIDE 0.9% 100 ML IV SCH (06:47)
[2017-12-25] MEDS ORDERED: POTASSIUM CHLORIDE ORAL LIQUID 40 MEQ/30 ML CUP NG-TUBE SCH (07:00)
[2017-12-25] MEDS: FUROSEMIDE 10 MG/ML 4 ML VIAL IV SCH ×3 (08:52→23:40)
[2017-12-25] MEDS: ASPIRIN 81 MG PO SCH (08:53)
[2017-12-25] MEDS: AMANTADINE HCL 100 MG CAP PO SCH ×2 (08:53→20:38)
[2017-12-25] MEDS: AZITHROMYCIN 500 MG TAB PO SCH (08:53)
[2017-12-25] MEDS: methylPREDNISolone 4 MG TAB TAPER PO SCH (08:53)
[2017-12-25] MEDS: CARBIDOPA-LEVODOPA 25-100 MG 1 EACH TAB PO SCH ×2 (08:53→20:37)
[2017-12-25] MEDS: METOPROLOL TARTRATE 50 MG TAB PO SCH (08:53)
[2017-12-25] MEDS: PANTOPRAZOLE 40 MG/10 ML VIAL IVP SCH ×2 (08:54→20:39)
[2017-12-25] MEDS: METOPROLOL TARTRATE 25 MG TAB PO SCH ×2 (08:54→23:38)
[2017-12-25] MEDS: NITROGLYCERIN OINT 1 INCH/GM PACKET TOPICAL SCH ×4 (08:55→23:39)
[2017-12-25] MEDS: SYMBICORT 160-4.5 MCG INHALER INHALATION SCH ×2 (09:34→19:26)
[2017-12-25] MEDS: IPRATROPIUM-ALBUTEROL 3 ML NEB INHALATION SCH ×4 (09:34→19:26)
--- NOTE | 2017-12-25 11:53 | P.PN ---
Subjective Progress Note Date: 12/25/17 Principal diagnosis: Acute on chronic diastolic congestive heart failure, acute sepsis secondary to urinary tract infection, and acute GI bleeding rhonda is a 87-year-old white female patient of Dr. Douglass, who presented to the emergency department on 12/27/2017 at 1321 with complaints of fatigue, weakness , difficulty walking, some wheezing and shortness of breath. was recently treated with an oral antibiotic for a urinary tract infection by her PCP. However her fatigue and weakness became progressively worse, and the family insisted that the patient go to the hospital for further evaluation and treatment. Patient was also having altered mental status status, with hallucinations and delirium. Brain CT on 12/17/2017 showed atrophy with. Ventricular white matter ischemic type changes. These changes were stable compared to previous exam on 07/20/2017. There were retention cysts versus air- fluid level right maxillary sinus. Chest x-ray from 12/17/2017 showed patchy density in the right medial lung base. Small left basilar pleural effusion or pleural thickening was noted. Twelve-lead EKG on 12/27/2017 showed atrial fibrillation with a rate of 63 bpm. Lab work showed WBC of 10.8, hemoglobin 11.1, INR is 2.2, patient is on Xarelto for her history of chronic atrial fibrillation. Patient was found to have acute kidney injury with BUN of 46, and creatinine of 1.93, and hyperkalemia of 6.1 present on admission. Troponins were elevated 3, and peaked at 0.125. Patient's proBNP was 14,100. Patient's urinalysis showed dark brown turbid urine with urine white blood cells at 163, and urine RBC and greater than 182. Patient was afebrile, her vitals remained stable throughout her stay, she is on room air, with O2 sat between 98-100 percent. Patient was started on Rocephin, Zithromax, IV Lasix, nebulized treatments and admitted for further management. The patient is seen again today 12/21/2017 in follow-up on the selective care unit. She is currently resting fairly comfortably in bed. He is disoriented to place and time. She is currently febrile at 100.7. No tachycardia. No tachypnea. Blood pressure stable. She is maintaining O2 saturations in the low 90s on 4 L/m per nasal cannula. Blood culture reveals no growth to date. Urine culture reveals no growth. No leukocytosis. Currently on azithromycin. Creatinine 1.45. Patient is seen again today 12/22/2017 in follow-up on the selective care unit. She is resting comfortably in bed. She is much more awake and alert today as compared to yesterday. She does have some continued shortness of breath. A loose nonproductive cough. She is maintaining good O2 saturations in the 90s on 3 L/m per nasal cannula. Temperature 100.3. Her blood cultures are revealing no growth. Urine culture revealed no growth. No leukocytosis. Hemoglobin 9.5. INR 1.8. Creatinine 1.20. She is maintained on diuretics. She is incontinent of urine. Patient was seen early this morning on 12/23/2017, she was transferred to the intensive care unit, patient was admitted 6 days ago with shortness of breath and congestive heart failure, she developed this morning bright red blood per rectum with lower abdominal discomfort. Patient has been on aspirin and Xarelto. And she has been constipated for the last 5 days. She also had one episode of blood-tinged emesis, and mild nosebleed in the last 24 hours. Her admission hemoglobin was 11.1, and this morning was noted to be 7.2. Patient is receiving 1 unit of packed RBCs, her INR on admission was 2.2, presently 1.8 , just before I saw the patient, had small dark burgundy bowel movement around 6 AM. Patient was noted to be tachycardic, and atrial fibrillation rate is ranging between 120 to 1:30, and she was otherwise hemodynamically stable. Considering the patient was on Xarelto, I recommended giving the patient prothrombin complex concentrate. In the meantime the patient will be given at least 2 units of packed RBCs. Patient was evaluated by GI, and at this point may or may not consider colonoscopy. All her labs were reviewed, her BUN is 66 creatinine is 1.30. Chest x-ray from yesterday showed mild improvement in her pulmonary vascular congestion. And small pleural effusion was noted Reevaluated today on 12/24/2017, patient remains in the treatment room in the intensive care unit, no further episodes of bleeding since yesterday.. Her last bowel movement was actually yesterday. Her hemoglobin today is 8.7, patient received only 2 unit of packed RBCs yesterday. Labs were all reviewed, BUN is up to 81 creatinine is 1.28, INR is 1.4 patient received prothrombin complex/k -centra yesterday because she was on Xarelto and she had significant bleeding. Heart rate seems to be also controlled, and the patient is hemodynamically stable. Patient is scheduled to undergo EGD today, and this will be done by Dr. Sutherland. Reevaluated today on 12/25/2017, no active bleeding is noted. Patient is hemodynamically stable. Remains off anticoagulation therapy, EGD yesterday showed duodenal ulcer, which was actively wheezing, the ulcer was injected with epinephrine, and cautery with a gold probe and good hemostasis was noted. Hemoglobin today is 7.8. Renal functioning is about the same compared to the last couple of days. BUN is 76 creatinine is 1.30. Patient is hemodynamically stable, relatively asymptomatic, I plan to transfer the patient out of the ICU back to [facility] on a monitor bed. Decision regarding her antiplatelet agent therapy will be decided upon by cardiology and gastroenterology on the case. Objective - Vital Signs Vital signs: Vital Signs Temp 98.4 F 12/25/17 08:00 Pulse 80 12/25/17 11:00 Resp 17 12/25/17 11:00 BP 97/45 12/25/17 11:00 Pulse Ox 96 12/25/17 11:00 Intake & Output 12/24/17 12/25/17 12/25/17 18:59 06:59 18:59 Intake Total 375 409.5 340 Output Total 755 1475 250 Balance -380 -1065.5 90 Weight 78.2 kg 78.1 kg Intake: IV 250 315 100 0.9 160 260 80 Diltiazem 125 mg In 40 55 20 Sodium Chloride 0.9% 100 ml @ 5 MG/HR 5 mls/hr IV .Q24H [facility] Rx#:[id number] Intake, IV Titration 125 94.5 Amount Diltiazem 125 mg In 125 94.5 Sodium Chloride 0.9% 100 ml @ 5 MG/HR 5 mls/hr IV .Q24H [facility] Rx#:[id number] Oral 240 Output: Urine 755 1475 250 Other: Voiding Method Indwelling Catheter Indwelling Catheter Indwelling Catheter - Exam General appearance: Revealed an 87-year-old female, looks pale, in no form of respiratory distress. HET: Atraumatic, normocephalic, slightly pale, dry mucous membranes. Neck: Supple, no neck masses, no JVD, no stridor. Dry mucous membranes were noted. No lymphadenopathy was appreciated.. Heart: S1 S2. ir-Regular rate and rhythm. Lungs: No crackles or wheezes are heard. Diminished breath sounds at the bases. No chest wall tenderness. Abdomen: Obese, slightly tender, no rebound, no guarding, positive bowel sounds. No organomegaly was appreciated. Extremities: Right lower extremity hip region slightly edematous. Normal skin color and turgor. Neurological: No focal deficits. Strength and sensation are grossly intact. Lymphatics: No lymphadenopathy was appreciated. - Labs CBC & Chem 7: 12/25/17 05:01 12/25/17 05:01 Labs: Abnormal Lab Results - Last 24 Hours (Table) 12/24/17 12/24/17 12/24/17 Range/Units 11:46 18:32 21:13 RBC (3.80-5.40) m/uL Hgb (11.4-16.0) gm/dL Hct (34.0-46.0) % MCHC (31.0-37.0) g/dL RDW (11.5-15.5) % Carbon Dioxide (22-30) mmol/L BUN (7-17) mg/dL Creatinine (0.52-1.04) mg/dL Glucose (74-99) mg/dL POC Glucose (mg/dL) 207 H 161 H 173 H (75-99) mg/dL 12/25/17 12/25/17 12/25/17 Range/Units 00:06 05:01 05:01 RBC 2.58 L (3.80-5.40) m/uL Hgb 7.8 L (11.4-16.0) gm/dL Hct 25.7 L (34.0-46.0) % MCHC 30.4 L (31.0-37.0) g/dL RDW 16.2 H (11.5-15.5) % Carbon Dioxide 32 H (22-30) mmol/L BUN 76 H (7-17) mg/dL Creatinine 1.30 H (0.52-1.04) mg/dL Glucose 131 H (74-99) mg/dL POC Glucose (mg/dL) 172 H (75-99) mg/dL 12/25/17 Range/Units 06:19 RBC (3.80-5.40) m/uL Hgb (11.4-16.0) gm/dL Hct (34.0-46.0) % MCHC (31.0-37.0) g/dL RDW (11.5-15.5) % Carbon Dioxide (22-30) mmol/L BUN (7-17) mg/dL Creatinine (0.52-1.04) mg/dL Glucose (74-99) mg/dL POC Glucose (mg/dL) 159 H (75-99) mg/dL Microbiology - Last 24 Hours (Table) 12/21/17 08:54 Blood Culture - Preliminary Blood No Growth after 96 hours 12/21/17 08:45 Blood Culture - Preliminary Blood No Growth after 96 hours Assessment and Plan Assessment: Impression: 1 acute GI bleeding, secondary to bleeding duodenal ulcer status post cautery and injection of epinephrine. 2 chronic atrial fibrillation 3 acute diastolic congestive heart failure, also related to atrial fibrillation. 4 history of colon cancer previous surgery. 5 acute coagulopathy secondary to Xarelto, we'll try to reverse using prothrombin complex concentrate 6 acute sepsis secondary to urinary tract infection 7 history of bronchial asthma presently stable 8 non-anion gap metabolic acidosis secondary to acute renal failure, resolved 9 history of underlying coronary artery disease and previous [place] 10 history of degenerative joint disease 11 history of benign essential hypertension 12 acute kidney injury secondary to acute tubular necrosis and hypoperfusion possibly related to sepsis. Recommendation: Continue present supportive care measures i continue to monitor CBC on a daily basis, continue treatment plan as outlined by gastroenterology, consider transferring the patient out of the ICU today. Time with Patient: Less than 30
[2017-12-25 12:12] LABS: Anisocytosis Slight; Basophils % (A) 0 %; Eosinophils % (A) 0 %; HCT 22.6 % (34.0-46.0); Hypochromasia Moderate; Lymphocytes # (A) 0.6 k/uL (1.0-4.8); Lymphocytes % (A) 7 %; MCH 29.9 pg (25.0-35.0); MCHC 30.2 g/dL (31.0-37.0); MCV 99.2 fL (80.0-100.0); Macrocytosis Slight; Mean Platelet Volume 7.1; Monocytes # (A) 0.5 k/uL (0-1.0); Monocytes % (A) 5 %; Neutrophils # (A) 7.5 k/uL (1.3-7.7); Neutrophils % (A) 86 %; Platelet Count 215 k/uL (150-450); RBC 2.27 m/uL (3.80-5.40); RDW 16.4 % (11.5-15.5); WBC 8.8 k/uL (3.8-10.6)
[2017-12-25 12:19] LABS: HGB 6.8 gm/dL (11.4-16.0)
[2017-12-25 12:21] LABS: Glucose,Whole Blood 202 mg/dL (75-99)
[2017-12-25] MEDS: FOLIC ACID 1 MG TAB PO SCH (12:55)
[2017-12-25] MEDS: MULTIVITAMINS, THERA 1 EACH TAB PO SCH (12:55)
[2017-12-25] MEDS: THIAMINE 100 MG TAB PO SCH (12:55)
--- NOTE | 2017-12-25 14:50 | PN ---
PROGRESS NOTE This lady has a history of chronic diastolic heart failure and atrial fibrillation, has been on Xarelto. She is a patient of Dr. Douglass. She came to the emergency room with fatigue, weakness, lack of energy, and was found to have significant bloody stool and was transported to the ICU. Her hemoglobin is down and endoscopy revealed evidence of active duodenal ulcer with bleeding. I am recommending that we should discontinue Xarelto and aspirin both. This lady had an epinephrine injection and cautery done for a 1 cm actively bleeding duodenal ulcer. From the cardiac standpoint, her rate control is optimal. I will recommend that we discontinue the Cardizem drip altogether and increase the beta yanely to 75 mg of Lopressor in the morning and an additional 25 in the afternoon. She is hemodynamically stable but will probably benefit from a blood transfusion. Dr. Kraus is going to make a decision apparently in this regard. Cardiac- haley, her chronic atrial fibrillation should be treated by rate control alone and I am not recommending any anticoagulation. Blood pressure today is 108/70. Pulse rate is 80 . S1 and S2 heard normally with rhythm, short systolic murmur. Lungs are clear. Abdomen is soft. Lower extremities reveal 1+ edema, diminished pulses. RECOMMENDATION: No anticoagulation. Continue rate control with beta yanely. MMODL / IJN: [id number] /
[2017-12-25 17:29] LABS: Glucose,Whole Blood 223 mg/dL (75-99)
[2017-12-25] MEDS: SODIUM CHLORIDE 0.9% 1,000 ML IV SCH (17:45)
[2017-12-25 20:54] LABS: Glucose,Whole Blood 164 mg/dL (75-99)
[2017-12-26 04:41] LABS: Anisocytosis Slight; Basophils % (A) 1 %; Eosinophils % (A) 0 %; HCT 25.5 % (34.0-46.0); HGB 7.9 gm/dL (11.4-16.0); Hypochromasia Slight; Lymphocytes # (A) 1.1 k/uL (1.0-4.8); Lymphocytes % (A) 15 %; MCH 30.1 pg (25.0-35.0); MCV 97.1 fL (80.0-100.0); Macrocytosis Slight; Mean Platelet Volume 7.1; Monocytes # (A) 0.4 k/uL (0-1.0); Monocytes % (A) 6 %; Neutrophils # (A) 5.4 k/uL (1.3-7.7); Neutrophils % (A) 76 %; Platelet Count 213 k/uL (150-450); Poikilocytosis Slight; RBC 2.63 m/uL (3.80-5.40); RDW 16.8 % (11.5-15.5); WBC 7.1 k/uL (3.8-10.6)
[2017-12-26 04:51] LABS: Calcium 8.4 mg/dL (8.4-10.2); Potassium 3.3 mmol/L (3.5-5.1)
[2017-12-26] MEDS: POTASSIUM BICARBONATE/CIT AC 20 MEQ TABLET.EFF PO SCH ×2 (05:52→06:54)
[2017-12-26] MEDS ORDERED: POTASSIUM CHLORIDE ORAL LIQUID 40 MEQ/30 ML CUP NG-TUBE SCH (06:00)
[2017-12-26 07:55] LABS: Glucose,Whole Blood 145 mg/dL (75-99)
[2017-12-26] MEDS: AMANTADINE HCL 100 MG CAP PO SCH ×2 (08:11→21:12)
[2017-12-26] MEDS: FUROSEMIDE 10 MG/ML 4 ML VIAL IV SCH ×3 (08:11→23:48)
[2017-12-26] MEDS: CARBIDOPA-LEVODOPA 25-100 MG 1 EACH TAB PO SCH ×2 (08:11→21:11)
[2017-12-26] MEDS: PANTOPRAZOLE 40 MG/10 ML VIAL IVP SCH ×2 (08:11→21:12)
[2017-12-26] MEDS: METOPROLOL TARTRATE 25 MG TAB PO SCH ×2 (08:11→20:18)
[2017-12-26] MEDS: AZITHROMYCIN 500 MG TAB PO SCH (08:12)
[2017-12-26] MEDS: methylPREDNISolone 4 MG TAB TAPER PO SCH (08:12)
[2017-12-26] MEDS: INSULIN ASPART 100 UNIT/ML 1 ML 10 ML VIAL SQ SCH ×5 (08:20→22:33)
[2017-12-26] MEDS: NITROGLYCERIN OINT 1 INCH/GM PACKET TOPICAL SCH ×4 (08:20→21:10)
[2017-12-26] MEDS: IPRATROPIUM-ALBUTEROL 3 ML NEB INHALATION SCH ×4 (08:38→19:35)
[2017-12-26] MEDS: SYMBICORT 160-4.5 MCG INHALER INHALATION SCH ×2 (08:38→19:35)
--- NOTE | 2017-12-26 09:53 | XR ---
EXAMINATION TYPE: XR chest 1V portable DATE OF EXAM: 12/26/2017 HISTORY: sob. REFERENCE: Previous study dated 12/22/2017. FINDINGS: The heart remains enlarged. There is bibasilar airspace disease. There is worsening right u pper lobe airspace disease as well as worsening left sided airspace disease likely in the superior se gment of the left lower lobe. The heart is enlarged. I suspect small effusions. IMPRESSION: WORSENING BILATERAL AIRSPACE DISEASE.
[2017-12-26] MEDS: PIPERACILLIN-TAZOBACTAM 3.375 GM in DEXTROSE/WATER 1 50ML.BAG IVPB SCH ×3 (10:13→23:48)
[2017-12-26 12:07] LABS: Glucose,Whole Blood 168 mg/dL (75-99)
[2017-12-26] MEDS: MULTIVITAMINS, THERA 1 EACH TAB PO SCH (12:31)
[2017-12-26] MEDS: FOLIC ACID 1 MG TAB PO SCH (12:31)
[2017-12-26] MEDS: THIAMINE 100 MG TAB PO SCH (12:31)
[2017-12-26] MEDS: HYDROcodone/APAP 7.5-325MG 1 EACH TAB PO PRN (13:46)
--- NOTE | 2017-12-26 14:38 | P.PN ---
Subjective Progress Note Date: 12/26/17 Principal diagnosis: Acute on chronic diastolic congestive heart failure, acute sepsis secondary to urinary tract infection, and acute GI bleeding rhonda is a 87-year-old white female patient of Dr. Douglass, who presented to the emergency department on 12/27/2017 at 1321 with complaints of fatigue, weakness , difficulty walking, some wheezing and shortness of breath. was recently treated with an oral antibiotic for a urinary tract infection by her PCP. However her fatigue and weakness became progressively worse, and the family insisted that the patient go to the hospital for further evaluation and treatment. Patient was also having altered mental status status, with hallucinations and delirium. Brain CT on 12/17/2017 showed atrophy with. Ventricular white matter ischemic type changes. These changes were stable compared to previous exam on 07/20/2017. There were retention cysts versus air- fluid level right maxillary sinus. Chest x-ray from 12/17/2017 showed patchy density in the right medial lung base. Small left basilar pleural effusion or pleural thickening was noted. Twelve-lead EKG on 12/27/2017 showed atrial fibrillation with a rate of 63 bpm. Lab work showed WBC of 10.8, hemoglobin 11.1, INR is 2.2, patient is on Xarelto for her history of chronic atrial fibrillation. Patient was found to have acute kidney injury with BUN of 46, and creatinine of 1.93, and hyperkalemia of 6.1 present on admission. Troponins were elevated 3, and peaked at 0.125. Patient's proBNP was 14,100. Patient's urinalysis showed dark brown turbid urine with urine white blood cells at 163, and urine RBC and greater than 182. Patient was afebrile, her vitals remained stable throughout her stay, she is on room air, with O2 sat between 98-100 percent. Patient was started on Rocephin, Zithromax, IV Lasix, nebulized treatments and admitted for further management. The patient is seen again today 12/21/2017 in follow-up on the selective care unit. She is currently resting fairly comfortably in bed. He is disoriented to place and time. She is currently febrile at 100.7. No tachycardia. No tachypnea. Blood pressure stable. She is maintaining O2 saturations in the low 90s on 4 L/m per nasal cannula. Blood culture reveals no growth to date. Urine culture reveals no growth. No leukocytosis. Currently on azithromycin. Creatinine 1.45. Patient is seen again today 12/22/2017 in follow-up on the selective care unit. She is resting comfortably in bed. She is much more awake and alert today as compared to yesterday. She does have some continued shortness of breath. A loose nonproductive cough. She is maintaining good O2 saturations in the 90s on 3 L/m per nasal cannula. Temperature 100.3. Her blood cultures are revealing no growth. Urine culture revealed no growth. No leukocytosis. Hemoglobin 9.5. INR 1.8. Creatinine 1.20. She is maintained on diuretics. She is incontinent of urine. Patient was seen early this morning on 12/23/2017, she was transferred to the intensive care unit, patient was admitted 6 days ago with shortness of breath and congestive heart failure, she developed this morning bright red blood per rectum with lower abdominal discomfort. Patient has been on aspirin and Xarelto. And she has been constipated for the last 5 days. She also had one episode of blood-tinged emesis, and mild nosebleed in the last 24 hours. Her admission hemoglobin was 11.1, and this morning was noted to be 7.2. Patient is receiving 1 unit of packed RBCs, her INR on admission was 2.2, presently 1.8 , just before I saw the patient, had small dark burgundy bowel movement around 6 AM. Patient was noted to be tachycardic, and atrial fibrillation rate is ranging between 120 to 1:30, and she was otherwise hemodynamically stable. Considering the patient was on Xarelto, I recommended giving the patient prothrombin complex concentrate. In the meantime the patient will be given at least 2 units of packed RBCs. Patient was evaluated by GI, and at this point may or may not consider colonoscopy. All her labs were reviewed, her BUN is 66 creatinine is 1.30. Chest x-ray from yesterday showed mild improvement in her pulmonary vascular congestion. And small pleural effusion was noted Reevaluated today on 12/24/2017, patient remains in the treatment room in the intensive care unit, no further episodes of bleeding since yesterday.. Her last bowel movement was actually yesterday. Her hemoglobin today is 8.7, patient received only 2 unit of packed RBCs yesterday. Labs were all reviewed, BUN is up to 81 creatinine is 1.28, INR is 1.4 patient received prothrombin complex/k -centra yesterday because she was on Xarelto and she had significant bleeding. Heart rate seems to be also controlled, and the patient is hemodynamically stable. Patient is scheduled to undergo EGD today, and this will be done by Dr. Sutherland. Reevaluated today on 12/25/2017, no active bleeding is noted. Patient is hemodynamically stable. Remains off anticoagulation therapy, EGD yesterday showed duodenal ulcer, which was actively wheezing, the ulcer was injected with epinephrine, and cautery with a gold probe and good hemostasis was noted. Hemoglobin today is 7.8. Renal functioning is about the same compared to the last couple of days. BUN is 76 creatinine is 1.30. Patient is hemodynamically stable, relatively asymptomatic, I plan to transfer the patient out of the ICU back to [facility] on a monitor bed. Decision regarding her antiplatelet agent therapy will be decided upon by cardiology and gastroenterology on the case. Reevaluated today on 12/26/2017, patient is not having any further episodes of active GI bleeding, however the patient is developing worsening airspace disease in both lungs bilaterally. O2 saturation is also marginal, patient is now on a high flow nasal cannula. Hemoglobin is 7.9 WBC count is 7.1 electrolytes were reviewed creatinine is 1.3, BUN is 70. On physical examination, patient sounded quite congested, diffuse crackles and rhonchi and wheezes were noted bilaterally. Started the patient on Zosyn, I also recommended diuretics, and she will need incentive spirometry and increase her bronchodilators to more frequently. Continues to have good urine output, remains on Lasix 40 mg IV push every 8 hours. Objective - Vital Signs Vital signs: Vital Signs Temp 98.9 F 12/26/17 12:00 Pulse 79 12/26/17 14:00 Resp 30 H 12/26/17 14:00 BP 117/54 12/26/17 14:00 Pulse Ox 94 L 12/26/17 14:00 Intake & Output 12/25/17 12/26/17 12/26/17 18:59 06:59 18:59 Intake Total 1050 690 340 Output Total 860 1285 740 Balance 190 -595 -400 Weight 79.8 kg Intake: IV 250 260 100 0.9 220 260 100 Diltiazem 125 mg In 30 Sodium Chloride 0.9% 100 ml @ 5 MG/HR 5 mls/hr IV .Q24H [facility] Rx#:[id number] Oral 800 120 240 Blood Product 0 310 Rc Pheresis 2 As3 Unit 0 310 [id number] Output: Urine 860 1285 740 Other: Voiding Method Indwelling Catheter Indwelling Catheter Indwelling Catheter - Exam General appearance: Revealed an 87-year-old female, looks pale, in no form of respiratory distress. HET: Atraumatic, normocephalic, slightly pale, dry mucous membranes. Neck: Supple, no neck masses, no JVD, no stridor. Dry mucous membranes were noted. No lymphadenopathy was appreciated.. Heart: S1 S2. ir-Regular rate and rhythm. Lungs: Crackles and rhonchi and wheezes were noted bilaterally. Abdomen: Obese, slightly tender, no rebound, no guarding, positive bowel sounds. No organomegaly was appreciated. Extremities: Right lower extremity hip region slightly edematous. Normal skin color and turgor. Neurological: No focal deficits. Strength and sensation are grossly intact. Lymphatics: No lymphadenopathy was appreciated. - Labs CBC & Chem 7: 12/26/17 04:15 12/26/17 04:15 Labs: Abnormal Lab Results - Last 24 Hours (Table) 12/23/17 12/25/17 12/25/17 Range/Units 05:10 17:16 20:27 RBC (3.80-5.40) m/uL Hgb (11.4-16.0) gm/dL Hct (34.0-46.0) % RDW (11.5-15.5) % Potassium (3.5-5.1) mmol/L Chloride (98-107) mmol/L Carbon Dioxide (22-30) mmol/L BUN (7-17) mg/dL Creatinine (0.52-1.04) mg/dL Glucose (74-99) mg/dL POC Glucose (mg/dL) 223 H 164 H (75-99) mg/dL Crossmatch See Detail 12/26/17 12/26/17 12/26/17 Range/Units 04:15 04:15 07:32 RBC 2.63 L (3.80-5.40) m/uL Hgb 7.9 L (11.4-16.0) gm/dL Hct 25.5 L (34.0-46.0) % RDW 16.8 H (11.5-15.5) % Potassium 3.3 L (3.5-5.1) mmol/L Chloride 96 L (98-107) mmol/L Carbon Dioxide 32 H (22-30) mmol/L BUN 70 H (7-17) mg/dL Creatinine 1.30 H (0.52-1.04) mg/dL Glucose 124 H (74-99) mg/dL POC Glucose (mg/dL) 145 H (75-99) mg/dL Crossmatch 12/26/17 Range/Units 12:05 RBC (3.80-5.40) m/uL Hgb (11.4-16.0) gm/dL Hct (34.0-46.0) % RDW (11.5-15.5) % Potassium (3.5-5.1) mmol/L Chloride (98-107) mmol/L Carbon Dioxide (22-30) mmol/L BUN (7-17) mg/dL Creatinine (0.52-1.04) mg/dL Glucose (74-99) mg/dL POC Glucose (mg/dL) 168 H (75-99) mg/dL Crossmatch Microbiology - Last 24 Hours (Table) 12/21/17 08:54 Blood Culture - Preliminary Blood No Growth after 120 hours 12/21/17 08:45 Blood Culture - Preliminary Blood No Growth after 120 hours Assessment and Plan Assessment: Impression: 1 acute GI bleeding, secondary to bleeding duodenal ulcer status post cautery and injection of epinephrine. 2 chronic atrial fibrillation 3 acute diastolic congestive heart failure, also related to atrial fibrillation. 4 history of colon cancer previous surgery. 5 acute coagulopathy secondary to Xarelto, we'll try to reverse using prothrombin complex concentrate 6 acute sepsis secondary to urinary tract infection 7 history of bronchial asthma presently stable 8 non-anion gap metabolic acidosis secondary to acute renal failure, resolved 9 history of underlying coronary artery disease and previous OH 10 history of degenerative joint disease 11 history of benign essential hypertension 12 acute kidney injury secondary to acute tubular necrosis and hypoperfusion possibly related to sepsis. 13 acute nosocomial pneumonia is strongly suspected. Hence his Zosyn was added , will check sputum for Gram stain culture and sensitivity, we'll continue to follow closely. However the patient could be transferred out of the ICU to a monitor bed on selective. Recommendation: Continue treatment plan as noted above, increase FiO2 to a high flow nasal cannula, titrate accordingly, continue diuretics, continue antibiotics in the form of Zosyn, bronchodilators, will follow closely. Time with Patient: Less than 30
[2017-12-26] MEDS: SODIUM CHLORIDE 0.9% 1,000 ML IV SCH (16:01)
--- NOTE | 2017-12-26 16:31 | PN ---
PROGRESS NOTE This lady is in atrial fib. Rate is very well controlled. She received a unit of blood. Hemoglobin is 7.9. PHYSICAL EXAMINATION: Vitals are stable. Blood pressure control is better. S1-S2 heard normally, irregular rhythm noted. Short systolic murmur noted. Lungs reveal improved air entry. Abdomen and lower extremity exam unchanged. PLAN: Continue current medications and she can be moved to telemetry unit or to the med/surg floor. MMODL / IJN: [id number] /
[2017-12-26 17:42] LABS: Glucose,Whole Blood 161 mg/dL (75-99)
[2017-12-26] MEDS ORDERED: POTASSIUM BICARBONATE/CIT AC 20 MEQ TABLET.EFF PO SCH ×2 (18:00→19:00)
[2017-12-26 20:57] LABS: Glucose,Whole Blood 190 mg/dL (75-99)
--- NOTE | 2017-12-26 22:41 | P.PN ---
Subjective Progress Note Date: 12/25/17 Principal diagnosis: Acute on chronic CHF Pleasant 87-year-old femalewith a history of atrial fibrillation, coronary artery disease, prior UT, diastolic congestive heart failure, diabetes, hypertension and COPD. Presented to the emergency department with complaints of weakness, near syncope and progressively worsening shortness of breath with exertion as well as orthopnea and lower extremity edema. Patient is currently being treated for acute on chronic CHF. On 12/21/2017 Patient is febrile this morning. Otherwise patient is confused and lethargic and could not provide any history. Still having leg swelling. Continued on IV diuresis. Blood cultures and urine cultures show no growth. Ceftriaxone has been discontinued. on azithromycin. 12/22/2017 Patient is still febrile today morning with T-max 100.2. Otherwise clinically improving. Patient is more awake and oriented today looks swelling improved as well. Chest x-ray showed improved aeration. Otherwise no chest pain no worsening short of breath no nausea vomiting abdominal pain or diarrhea. Discussed with his family at bedside in detail. 12/23/2017 Patient had blood in the stool and hematemesis. Patient was transferred to MICU for close monitoring. Hemoglobin 7.2 today. Otherwise patient was seen by GI and scheduled for endoscopy tomorrow. Otherwise breathing status is stable. Patient has been afebrile. Denied any chest pain. Leg swelling improving. Also started on Cardizem drip due to A. fib with rapid ventricular Rate. 12/24/2017 Patient denied any worsening shortness of breath or chest pain. Continues to be monitored in the ICU. Otherwise hemoglobin is 8.7 today. Endoscopic today afternoon. No, no fever chills. No other acute overnight issues. 12/25/2017 Patient denied any worsening short of breath today. Otherwise hemoglobin dropped to 6.8. Patient is getting 1 unit of blood transfusion. Continued on IV Lasix. EGD showed actively losing Duodenal ulcer and gastritis. All other review of systems negative except above Current medications reviewed Objective - Vital Signs Vital signs: Vital Signs Temp 98.6 F 12/25/17 20:00 Pulse 88 12/25/17 20:00 Resp 19 12/25/17 20:00 BP 118/48 12/25/17 20:00 Pulse Ox 92 L 12/25/17 20:00 Intake & Output 12/25/17 12/25/17 12/26/17 06:59 18:59 06:59 Intake Total 409.5 1050 370 Output Total 1475 860 375 Balance -1065.5 190 -5 Weight 78.1 kg Intake: IV 315 250 60 0.9 260 220 60 Diltiazem 125 mg In 55 30 Sodium Chloride 0.9% 100 ml @ 5 MG/HR 5 mls/hr IV .Q24H [facility] Rx#:[id number] Intake, IV Titration 94.5 Amount Diltiazem 125 mg In 94.5 Sodium Chloride 0.9% 100 ml @ 5 MG/HR 5 mls/hr IV .Q24H [facility] Rx#:[id number] Oral 800 Blood Product 0 310 Rc Pheresis 2 As3 Unit 0 310 [id number] Output: Urine 1475 860 375 Other: Voiding Method Indwelling Catheter Indwelling Catheter - Exam PHYSICAL EXAMINATION: Patient is lying in the bed comfortably, no acute distress, awake alert and oriented.. HEENT: Normocephalic. Neck is supple. Pupils reactive. Nostrils clear. Oral cavity is moist. Ears reveal no drainage. Neck reveals no JVD, carotid bruits, or thyromegaly. CHEST EXAMINATION: Trachea is central. Symmetrical expansion. Bilateral diminished air entry basally.. CARDIAC: Normal S1, S2 with no gallops. No murmurs ABDOMEN: Soft. Bowel sounds normal. No organomegaly. No abdominal bruits. Extremities: 2+ pedal edema bilaterally. Swelling and redness Redness improved. No clubbing or cyanosis Neurologically awake, alert, oriented x3 with well-coordinated movements. No focal deficits noted Skin: No rash or skin lesions. Psychiatric: Coperative. Nonsuicidal Musculoskeletal: No joint swelling or deformity. Normal range of motion. - Labs CBC & Chem 7: 12/26/17 04:15 12/26/17 17:03 Labs: Abnormal Lab Results - Last 24 Hours (Table) 12/23/17 12/24/17 12/25/17 Range/Units 05:10 21:13 00:06 RBC (3.80-5.40) m/uL Hgb (11.4-16.0) gm/dL Hct (34.0-46.0) % MCHC (31.0-37.0) g/dL RDW (11.5-15.5) % Lymphocytes # (1.0-4.8) k/uL Carbon Dioxide (22-30) mmol/L BUN (7-17) mg/dL Creatinine (0.52-1.04) mg/dL Glucose (74-99) mg/dL POC Glucose (mg/dL) 173 H 172 H (75-99) mg/dL Crossmatch See Detail 12/25/17 12/25/17 12/25/17 Range/Units 05:01 05:01 06:19 RBC 2.58 L (3.80-5.40) m/uL Hgb 7.8 L (11.4-16.0) gm/dL Hct 25.7 L (34.0-46.0) % MCHC 30.4 L (31.0-37.0) g/dL RDW 16.2 H (11.5-15.5) % Lymphocytes # (1.0-4.8) k/uL Carbon Dioxide 32 H (22-30) mmol/L BUN 76 H (7-17) mg/dL Creatinine 1.30 H (0.52-1.04) mg/dL Glucose 131 H (74-99) mg/dL POC Glucose (mg/dL) 159 H (75-99) mg/dL Crossmatch 12/25/17 12/25/17 12/25/17 Range/Units 11:24 12:19 17:16 RBC 2.27 L (3.80-5.40) m/uL Hgb 6.8 L* (11.4-16.0) gm/dL Hct 22.6 L (34.0-46.0) % MCHC 30.2 L (31.0-37.0) g/dL RDW 16.4 H (11.5-15.5) % Lymphocytes # 0.6 L (1.0-4.8) k/uL Carbon Dioxide (22-30) mmol/L BUN (7-17) mg/dL Creatinine (0.52-1.04) mg/dL Glucose (74-99) mg/dL POC Glucose (mg/dL) 202 H 223 H (75-99) mg/dL Crossmatch 12/25/17 Range/Units 20:27 RBC (3.80-5.40) m/uL Hgb (11.4-16.0) gm/dL Hct (34.0-46.0) % MCHC (31.0-37.0) g/dL RDW (11.5-15.5) % Lymphocytes # (1.0-4.8) k/uL Carbon Dioxide (22-30) mmol/L BUN (7-17) mg/dL Creatinine (0.52-1.04) mg/dL Glucose (74-99) mg/dL POC Glucose (mg/dL) 164 H (75-99) mg/dL Crossmatch Microbiology - Last 24 Hours (Table) 12/21/17 08:54 Blood Culture - Preliminary Blood No Growth after 96 hours 12/21/17 08:45 Blood Culture - Preliminary Blood No Growth after 96 hours Assessment and Plan Assessment: Shortness of breath secondary to acute on chronic CHF with diastolic dysfunction. Ejection fraction 55-60% Acute blood loss anemia secondary to GI bleed due to duodenal ulcer and gastritis. Tracheobronchitis . No pneumonia on chest x-ray Acute on chronic kidney disease stage III COPD with mild exacerbation Hypokalemia Altered mental status possible metabolic encephalopathy multifactorial. Improved Macrocytic anemia Elevated troponin. Unlikely ACS Chronic atrial fibrillation Diabetes type 2 Hypertension, History of UT Degenerative joint disease Parkinson's disease History of colon cancer resection and skin cancer Plan: Patient be continued on IV diuresis and antibiotics in the form of azithromycin. Continue with steroids. Continue with Protonix IV.. Patient underwent 2 units of blood transfusion. Pulmonary and cardiology is following. Continue with current management and further recommendations based on the clinical course. Prognosis is guarded with multiple medical problems and comorbid conditions. Time with Patient: Greater than 30
--- NOTE | 2017-12-26 22:46 | P.PN ---
Subjective Progress Note Date: 12/26/17 Principal diagnosis: Acute on chronic CHF Pleasant 87-year-old femalewith a history of atrial fibrillation, coronary artery disease, prior [place], diastolic congestive heart failure, diabetes, hypertension and COPD. Presented to the emergency department with complaints of weakness, near syncope and progressively worsening shortness of breath with exertion as well as orthopnea and lower extremity edema. Patient is currently being treated for acute on chronic CHF. On 12/21/2017 Patient is febrile this morning. Otherwise patient is confused and lethargic and could not provide any history. Still having leg swelling. Continued on IV diuresis. Blood cultures and urine cultures show no growth. Ceftriaxone has been discontinued. on azithromycin. 12/22/2017 Patient is still febrile today morning with T-max 100.2. Otherwise clinically improving. Patient is more awake and oriented today looks swelling improved as well. Chest x-ray showed improved aeration. Otherwise no chest pain no worsening short of breath no nausea vomiting abdominal pain or diarrhea. Discussed with his family at bedside in detail. 12/23/2017 Patient had blood in the stool and hematemesis. Patient was transferred to MICU for close monitoring. Hemoglobin 7.2 today. Otherwise patient was seen by GI and scheduled for endoscopy tomorrow. Otherwise breathing status is stable. Patient has been afebrile. Denied any chest pain. Leg swelling improving. Also started on Cardizem drip due to A. fib with rapid ventricular Rate. 12/24/2017 Patient denied any worsening shortness of breath or chest pain. Continues to be monitored in the ICU. Otherwise hemoglobin is 8.7 today. Endoscopic today afternoon. No, no fever chills. No other acute overnight issues. 12/25/2017 Patient denied any worsening short of breath today. Otherwise hemoglobin dropped to 6.8. Patient is getting 1 unit of blood transfusion. Continued on IV Lasix. EGD showed actively losing Duodenal ulcer and gastritis. 12/26/2017 Patient has been requiring high flow oxygen today. Chest x-ray showed worsening airspace disease. Antibiotics have been changed to Zosyn for possible pneumonia. Otherwise hemoglobin is stable at 7.9 today increased from yesterday. Leg swelling improved. Breathing status slightly improved otherwise. No fever no chills. Patient is being transferred to telemetry unit today. All other review of systems negative except above Current medications reviewed Objective - Vital Signs Vital signs: Vital Signs Temp 98.6 F 12/26/17 16:00 Pulse 86 12/26/17 20:00 Resp 16 12/26/17 20:00 BP 102/45 12/26/17 20:00 Pulse Ox 95 12/26/17 20:00 Intake & Output 12/26/17 12/26/17 12/27/17 06:59 18:59 06:59 Intake Total 690 570 20 Output Total 1285 1505 225 Balance -363 -113 -083 Weight 79.8 kg Intake: IV 260 160 20 0.9 260 160 20 Intake, IV Titration 50 Amount Piperacillin-Tazobactam 3 50 .375 gm In Dextrose/Water 1 50ml.bag @ 12.5 mls/hr IVPB Q8HR [facility] Rx#: [id number] Oral 120 360 Blood Product 310 Rc Pheresis 2 As3 Unit 310 [id number] Output: Urine 1285 1505 225 Other: Voiding Method Indwelling Catheter Indwelling Catheter Indwelling Catheter - Exam PHYSICAL EXAMINATION: Patient is lying in the bed comfortably, no acute distress, awake alert and oriented.. HEENT: Normocephalic. Neck is supple. Pupils reactive. Nostrils clear. Oral cavity is moist. Ears reveal no drainage. Neck reveals no JVD, carotid bruits, or thyromegaly. CHEST EXAMINATION: Trachea is central. Symmetrical expansion. Bilateral diminished air entry basally and basilar crackles.. CARDIAC: Normal S1, S2 with no gallops. No murmurs ABDOMEN: Soft. Bowel sounds normal. No organomegaly. No abdominal bruits. Extremities: 2+ pedal edema bilaterally. Swelling and redness Redness improved. No clubbing or cyanosis Neurologically awake, alert, oriented x3 with well-coordinated movements. No focal deficits noted Skin: No rash or skin lesions. Psychiatric: Coperative. Nonsuicidal Musculoskeletal: No joint swelling or deformity. Normal range of motion. - Labs CBC & Chem 7: 12/26/17 04:15 12/26/17 17:03 Labs: Abnormal Lab Results - Last 24 Hours (Table) 12/26/17 12/26/17 12/26/17 Range/Units 04:15 04:15 07:32 RBC 2.63 L (3.80-5.40) m/uL Hgb 7.9 L (11.4-16.0) gm/dL Hct 25.5 L (34.0-46.0) % RDW 16.8 H (11.5-15.5) % Potassium 3.3 L (3.5-5.1) mmol/L Chloride 96 L (98-107) mmol/L Carbon Dioxide 32 H (22-30) mmol/L BUN 70 H (7-17) mg/dL Creatinine 1.30 H (0.52-1.04) mg/dL Glucose 124 H (74-99) mg/dL POC Glucose (mg/dL) 145 H (75-99) mg/dL 12/26/17 12/26/17 12/26/17 Range/Units 12:05 17:41 20:56 RBC (3.80-5.40) m/uL Hgb (11.4-16.0) gm/dL Hct (34.0-46.0) % RDW (11.5-15.5) % Potassium (3.5-5.1) mmol/L Chloride (98-107) mmol/L Carbon Dioxide (22-30) mmol/L BUN (7-17) mg/dL Creatinine (0.52-1.04) mg/dL Glucose (74-99) mg/dL POC Glucose (mg/dL) 168 H 161 H 190 H (75-99) mg/dL Microbiology - Last 24 Hours (Table) 12/21/17 08:54 Blood Culture - Preliminary Blood No Growth after 120 hours 12/21/17 08:45 Blood Culture - Preliminary Blood No Growth after 120 hours Assessment and Plan Assessment: Shortness of breath secondary to acute on chronic CHF with diastolic dysfunction. Ejection fraction 55-60% Acute blood loss anemia secondary to GI bleed due to duodenal ulcer and gastritis. Tracheobronchitis and possible pneumonia Acute on chronic kidney disease stage III COPD with mild exacerbation Hypokalemia Altered mental status possible metabolic encephalopathy multifactorial. Improved Macrocytic anemia Elevated troponin. Unlikely ACS Chronic atrial fibrillation Diabetes type 2 Hypertension, History of [place] Degenerative joint disease Parkinson's disease History of colon cancer resection and skin cancer Plan: Patient be continued on IV diuresis and antibiotics in the form of Zosyn. DC'd azithromycin. Continue with steroids. Continue with Protonix IV.. Patient underwent 2 units of blood transfusion. Pulmonary and cardiology is following. Continue with current management and further recommendations based on the clinical course. Prognosis is guarded with multiple medical problems and comorbid conditions. Time with Patient: Greater than 30
[2017-12-27 06:20] LABS: Glucose,Whole Blood 122 mg/dL (75-99)
[2017-12-27] MEDS: INSULIN ASPART 100 UNIT/ML 1 ML 10 ML VIAL SQ SCH ×4 (06:26→21:25)
[2017-12-27 06:29] LABS: Anisocytosis Slight; Basophils # (A) 0.1 k/uL (0-0.2); Basophils % (A) 1 %; Eosinophils # (A) 0.1 k/uL (0-0.7); Eosinophils % (A) 1 %; HCT 26.9 % (34.0-46.0); HGB 8.4 gm/dL (11.4-16.0); Hypochromasia Slight; Lymphocytes # (A) 1.2 k/uL (1.0-4.8); Lymphocytes % (A) 14 %; MCH 30.4 pg (25.0-35.0); MCHC 31.2 g/dL (31.0-37.0); MCV 97.6 fL (80.0-100.0); Macrocytosis Slight; Monocytes # (A) 0.4 k/uL (0-1.0); Monocytes % (A) 4 %; Neutrophils # (A) 6.8 k/uL (1.3-7.7); Neutrophils % (A) 77 %; Platelet Count 217 k/uL (150-450); Poikilocytosis Slight; RBC 2.76 m/uL (3.80-5.40); RDW 17.1 % (11.5-15.5); WBC 8.9 k/uL (3.8-10.6)
[2017-12-27 06:41] LABS: Albumin 2.7 g/dL (3.5-5.0); Calcium 8.7 mg/dL (8.4-10.2); Total Bilirubin 0.8 mg/dL (0.2-1.3); Total Protein 5.2 g/dL (6.3-8.2)
[2017-12-27] MEDS ORDERED: Potassium Replacement Protocol 1 EACH MISC MISCELLANE PRN ×2 (07:06→07:11)
[2017-12-27] MEDS: SYMBICORT 160-4.5 MCG INHALER INHALATION SCH ×2 (07:07→20:56)
[2017-12-27] MEDS: IPRATROPIUM-ALBUTEROL 3 ML NEB INHALATION SCH ×4 (07:07→20:56)
[2017-12-27] MEDS: NITROGLYCERIN OINT 1 INCH/GM PACKET TOPICAL SCH ×4 (07:52→21:26)
[2017-12-27] MEDS: THIAMINE 100 MG TAB PO SCH (07:56)
[2017-12-27] MEDS: MULTIVITAMINS, THERA 1 EACH TAB PO SCH (07:56)
[2017-12-27] MEDS: FOLIC ACID 1 MG TAB PO SCH (07:57)
[2017-12-27] MEDS: AMANTADINE HCL 100 MG CAP PO SCH ×2 (07:57→21:25)
[2017-12-27] MEDS: PANTOPRAZOLE 40 MG/10 ML VIAL IVP SCH ×2 (07:57→21:28)
[2017-12-27] MEDS: METOPROLOL TARTRATE 25 MG TAB PO SCH ×2 (07:57→21:25)
[2017-12-27] MEDS: CARBIDOPA-LEVODOPA 25-100 MG 1 EACH TAB PO SCH ×2 (07:57→21:25)
[2017-12-27] MEDS: FUROSEMIDE 10 MG/ML 4 ML VIAL IV SCH ×2 (07:58→15:58)
[2017-12-27] MEDS ORDERED: POTASSIUM CHLORIDE ER 20 MEQ TAB.ER PO SCH ×2 (08:00)
[2017-12-27] MEDS ORDERED: Magnesium Replacement Protocol 1 EACH MISC MISCELLANE PRN (08:03)
[2017-12-27] MEDS: MAGNESIUM SULFATE-D5W PMX 1 GM in DEXTROSE/WATER 1 100ML.BAG IVPB SCH ×2 (08:59→09:43)
[2017-12-27] MEDS: PIPERACILLIN-TAZOBACTAM 3.375 GM in DEXTROSE/WATER 1 50ML.BAG IVPB SCH ×2 (08:59→16:05)
--- NOTE | 2017-12-27 10:23 | XR ---
EXAMINATION TYPE: XR chest 1V portable DATE OF EXAM: 12/27/2017 CLINICAL HISTORY: Difficulty breathing progress study. Pneumonia and CHF. TECHNIQUE: Single AP portable frontal view of the chest is obtained. COMPARISON: Chest x-ray from one day earlier and older studies. FINDINGS: There is cardiomegaly with atherosclerotic thoracic aorta. There is chronic parenchymal ch pat with persistent diffuse left lung as well as right upper and basilar opacities. Elevated right h emidiaphragm is redemonstrated. No large pleural effusion or pneumothorax is seen bilaterally. Osseou s structures remain demineralized. IMPRESSION: Overall stable findings, cardiomegaly and chronic parenchymal changes with multifocal i nfiltrates all redemonstrated.
[2017-12-27] MEDS: SODIUM CHLORIDE 0.9% 1,000 ML IV SCH (10:35)
[2017-12-27 11:50] LABS: Glucose,Whole Blood 216 mg/dL (75-99)
--- NOTE | 2017-12-27 12:22 | P.PN ---
Subjective Progress Note Date: 12/27/17 Principal diagnosis: Acute on chronic diastolic congestive heart failure, acute sepsis secondary to urinary tract infection, and acute GI bleeding rhonda is a 87-year-old white female patient of Dr. Douglass, who presented to the emergency department on 12/27/2017 at 1321 with complaints of fatigue, weakness , difficulty walking, some wheezing and shortness of breath. was recently treated with an oral antibiotic for a urinary tract infection by her PCP. However her fatigue and weakness became progressively worse, and the family insisted that the patient go to the hospital for further evaluation and treatment. Patient was also having altered mental status status, with hallucinations and delirium. Brain CT on 12/17/2017 showed atrophy with. Ventricular white matter ischemic type changes. These changes were stable compared to previous exam on 07/20/2017. There were retention cysts versus air- fluid level right maxillary sinus. Chest x-ray from 12/17/2017 showed patchy density in the right medial lung base. Small left basilar pleural effusion or pleural thickening was noted. Twelve-lead EKG on 12/27/2017 showed atrial fibrillation with a rate of 63 bpm. Lab work showed WBC of 10.8, hemoglobin 11.1, INR is 2.2, patient is on Xarelto for her history of chronic atrial fibrillation. Patient was found to have acute kidney injury with BUN of 46, and creatinine of 1.93, and hyperkalemia of 6.1 present on admission. Troponins were elevated 3, and peaked at 0.125. Patient's proBNP was 14,100. Patient's urinalysis showed dark brown turbid urine with urine white blood cells at 163, and urine RBC and greater than 182. Patient was afebrile, her vitals remained stable throughout her stay, she is on room air, with O2 sat between 98-100 percent. Patient was started on Rocephin, Zithromax, IV Lasix, nebulized treatments and admitted for further management. The patient is seen again today 12/21/2017 in follow-up on the selective care unit. She is currently resting fairly comfortably in bed. He is disoriented to place and time. She is currently febrile at 100.7. No tachycardia. No tachypnea. Blood pressure stable. She is maintaining O2 saturations in the low 90s on 4 L/m per nasal cannula. Blood culture reveals no growth to date. Urine culture reveals no growth. No leukocytosis. Currently on azithromycin. Creatinine 1.45. Patient is seen again today 12/22/2017 in follow-up on the selective care unit. She is resting comfortably in bed. She is much more awake and alert today as compared to yesterday. She does have some continued shortness of breath. A loose nonproductive cough. She is maintaining good O2 saturations in the 90s on 3 L/m per nasal cannula. Temperature 100.3. Her blood cultures are revealing no growth. Urine culture revealed no growth. No leukocytosis. Hemoglobin 9.5. INR 1.8. Creatinine 1.20. She is maintained on diuretics. She is incontinent of urine. Patient was seen early this morning on 12/23/2017, she was transferred to the intensive care unit, patient was admitted 6 days ago with shortness of breath and congestive heart failure, she developed this morning bright red blood per rectum with lower abdominal discomfort. Patient has been on aspirin and Xarelto. And she has been constipated for the last 5 days. She also had one episode of blood-tinged emesis, and mild nosebleed in the last 24 hours. Her admission hemoglobin was 11.1, and this morning was noted to be 7.2. Patient is receiving 1 unit of packed RBCs, her INR on admission was 2.2, presently 1.8 , just before I saw the patient, had small dark burgundy bowel movement around 6 AM. Patient was noted to be tachycardic, and atrial fibrillation rate is ranging between 120 to 1:30, and she was otherwise hemodynamically stable. Considering the patient was on Xarelto, I recommended giving the patient prothrombin complex concentrate. In the meantime the patient will be given at least 2 units of packed RBCs. Patient was evaluated by GI, and at this point may or may not consider colonoscopy. All her labs were reviewed, her BUN is 66 creatinine is 1.30. Chest x-ray from yesterday showed mild improvement in her pulmonary vascular congestion. And small pleural effusion was noted Reevaluated today on 12/24/2017, patient remains in the treatment room in the intensive care unit, no further episodes of bleeding since yesterday.. Her last bowel movement was actually yesterday. Her hemoglobin today is 8.7, patient received only 2 unit of packed RBCs yesterday. Labs were all reviewed, BUN is up to 81 creatinine is 1.28, INR is 1.4 patient received prothrombin complex/k -centra yesterday because she was on Xarelto and she had significant bleeding. Heart rate seems to be also controlled, and the patient is hemodynamically stable. Patient is scheduled to undergo EGD today, and this will be done by Dr. Sutherland. Reevaluated today on 12/25/2017, no active bleeding is noted. Patient is hemodynamically stable. Remains off anticoagulation therapy, EGD yesterday showed duodenal ulcer, which was actively wheezing, the ulcer was injected with epinephrine, and cautery with a gold probe and good hemostasis was noted. Hemoglobin today is 7.8. Renal functioning is about the same compared to the last couple of days. BUN is 76 creatinine is 1.30. Patient is hemodynamically stable, relatively asymptomatic, I plan to transfer the patient out of the ICU back to [facility] on a monitor bed. Decision regarding her antiplatelet agent therapy will be decided upon by cardiology and gastroenterology on the case. Reevaluated today on 12/26/2017, patient is not having any further episodes of active GI bleeding, however the patient is developing worsening airspace disease in both lungs bilaterally. O2 saturation is also marginal, patient is now on a high flow nasal cannula. Hemoglobin is 7.9 WBC count is 7.1 electrolytes were reviewed creatinine is 1.3, BUN is 70. On physical examination, patient sounded quite congested, diffuse crackles and rhonchi and wheezes were noted bilaterally. Started the patient on Zosyn, I also recommended diuretics, and she will need incentive spirometry and increase her bronchodilators to more frequently. Continues to have good urine output, remains on Lasix 40 mg IV push every 8 hours. Patient was reevaluated today on 12/27/2017, she is presently on selective, hemoglobin is holding at 8.4, no active GI bleeding noted. Her potassium is low being corrected as per protocol. And her renal profile seems to be improving in spite of diuretics BUN is 57 creatinine is 1.10. Chest x-ray is consistent with pulmonary edema, with BNP level of 10,000. Possibility of underlying infiltrate/pneumonia is not entirely ruled out, but I felt it is probably less likely. In the meantime empirically the patient is on antibiotics for presumptive pneumonia. But she is also on Lasix 40 mg IV push every 8 hours. Early this morning the patient desaturated, and she was placed on 50% BiPAP. Seems to be much more comfortable on the BiPAP. Objective - Vital Signs Vital signs: Vital Signs Temp 98.9 F 12/27/17 11:15 Pulse 90 12/27/17 11:15 Resp 21 12/27/17 11:15 BP 151/64 12/27/17 11:15 Pulse Ox 96 12/27/17 11:15 Intake & Output 12/26/17 12/27/17 12/27/17 18:59 06:59 18:59 Intake Total 570 90 0 Output Total 1505 2125 Balance -935 -2035 0 Weight 74 kg Intake: IV 160 90 0.9 160 40 Piperacillin-Tazobactam 3 50 .375 gm In Dextrose/Water 1 50ml.bag @ 12.5 mls/hr IVPB Q8HR [facility] Rx#: [id number] Intake, IV Titration 50 Amount Piperacillin-Tazobactam 3 50 .375 gm In Dextrose/Water 1 50ml.bag @ 12.5 mls/hr IVPB Q8HR [facility] Rx#: [id number] Oral 360 0 Output: Urine 1505 2125 Uretheral ([place]) 800 Other: Voiding Method Indwelling Catheter Indwelling Catheter Indwelling Catheter - Exam General appearance: Revealed an 87-year-old female, awake, on BiPAP at 50% FiO2. HET: Atraumatic, normocephalic, slightly pale, dry mucous membranes. Neck: Supple, no neck masses, no JVD, no stridor. Dry mucous membranes were noted. No lymphadenopathy was appreciated.. Heart: S1 S2. ir-Regular rate and rhythm. Lungs: Crackles and rhonchi and wheezes were noted bilaterally. Abdomen: Obese, slightly tender, no rebound, no guarding, positive bowel sounds. No organomegaly was appreciated. Extremities: Right lower extremity hip region slightly edematous. Normal skin color and turgor. Chronic venous stasis changes noted. Neurological: No focal deficits. Strength and sensation are grossly intact. Lymphatics: No lymphadenopathy was appreciated. - Labs CBC & Chem 7: 12/27/17 05:56 12/27/17 05:56 Labs: Abnormal Lab Results - Last 24 Hours (Table) 12/26/17 12/26/17 12/27/17 Range/Units 17:41 20:56 05:56 RBC 2.76 L (3.80-5.40) m/uL Hgb 8.4 L (11.4-16.0) gm/dL Hct 26.9 L (34.0-46.0) % RDW 17.1 H (11.5-15.5) % Potassium (3.5-5.1) mmol/L Chloride (98-107) mmol/L Carbon Dioxide (22-30) mmol/L BUN (7-17) mg/dL Creatinine (0.52-1.04) mg/dL Glucose (74-99) mg/dL POC Glucose (mg/dL) 161 H 190 H (75-99) mg/dL Total Protein (6.3-8.2) g/dL Albumin (3.5-5.0) g/dL 12/27/17 12/27/17 12/27/17 Range/Units 05:56 06:19 11:41 RBC (3.80-5.40) m/uL Hgb (11.4-16.0) gm/dL Hct (34.0-46.0) % RDW (11.5-15.5) % Potassium 3.0 L* (3.5-5.1) mmol/L Chloride 92 L (98-107) mmol/L Carbon Dioxide 40 H* (22-30) mmol/L BUN 57 H (7-17) mg/dL Creatinine 1.10 H (0.52-1.04) mg/dL Glucose 112 H (74-99) mg/dL POC Glucose (mg/dL) 122 H 216 H (75-99) mg/dL Total Protein 5.2 L (6.3-8.2) g/dL Albumin 2.7 L (3.5-5.0) g/dL Microbiology - Last 24 Hours (Table) 12/26/17 01:45 Gram Stain - Preliminary Sputum Sputum Culture - Preliminary 12/21/17 08:54 Blood Culture - Final Blood No Growth after 144 hours 12/21/17 08:45 Blood Culture - Final Blood No Growth after 144 hours Assessment and Plan Assessment: Impression: 1 acute GI bleeding, secondary to bleeding duodenal ulcer status post cautery and injection of epinephrine. 2 chronic atrial fibrillation 3 acute diastolic congestive heart failure, also related to atrial fibrillation. BNP level is 10,000 hence I believe the findings on the chest x- ray may be a combination of congestive heart failure and pneumonia. 4 history of colon cancer previous surgery. 5 acute coagulopathy secondary to Xarelto, we'll try to reverse using prothrombin complex concentrate 6 acute sepsis secondary to urinary tract infection 7 history of bronchial asthma presently stable 8 non-anion gap metabolic acidosis secondary to acute renal failure, resolved 9 history of underlying coronary artery disease and previous [place] 10 history of degenerative joint disease 11 history of benign essential hypertension 12 acute kidney injury secondary to acute tubular necrosis and hypoperfusion possibly related to sepsis. 13 acute nosocomial pneumonia is suspected. Hence his Zosyn was added, check sputum for Gram stain culture and sensitivity, Recommendation: Continue treatment plan as noted above, continue BiPAP, continue diuretics, continue antibiotics, prognosis remains definitely guarded. Time with Patient: Less than 30
[2017-12-27] MEDS ORDERED: ACETAMINOPHEN IV (For NPO) 1,000 MG in EMPTY BAG 1 BAG IVPB PRN (13:19)
[2017-12-27] MEDS ORDERED: BISACODYL 10 MG SUPP RECTAL STA (13:20)
[2017-12-27] MEDS ORDERED: POTASSIUM CHLORIDE 10 MEQ in SODIUM CHLORIDE 0.9% 100 ML IVPB ONE ×2 (15:00→21:00)
--- NOTE | 2017-12-27 15:31 | PN ---
PROGRESS NOTE This lady has a history of pneumonia, CHF, atrial fibrillation, and GI bleed. She is having difficulty breathing. She is on a BiPAP today. Her hemoglobin is stable. Atrial fib rate is reasonably well controlled under the circumstances. Vital signs are stable S1-S2 heard normally. Short systolic murmur noted. Irregular rhythm noted. Lungs revealed bilateral scattered rhonchi. Abdomen is soft, nontender. Lower extremities reveal diminished pulses. Central nervous system no changes. Generalized weakness noted. PLAN: Is to continue current medications for rate control, but her respiratory status has worsened and she is now on a BiPAP. MMODL / IJN: [id number] /
--- NOTE | 2017-12-27 16:10 | P.PN ---
Subjective 87-year-old femalewith a history of atrial fibrillation, coronary artery disease , prior MS, diastolic congestive heart failure, diabetes, hypertension and COPD. Presented to the emergency department with complaints of weakness, near syncope and progressively worsening shortness of breath with exertion as well as orthopnea and lower extremity edema. Patient is currently being treated for acute on chronic CHF. On 12/21/2017 Patient is febrile this morning. Otherwise patient is confused and lethargic and could not provide any history. Still having leg swelling. Continued on IV diuresis. Blood cultures and urine cultures show no growth. Ceftriaxone has been discontinued. on azithromycin. 12/22/2017 Patient is still febrile today morning with T-max 100.2. Otherwise clinically improving. Patient is more awake and oriented today looks swelling improved as well. Chest x-ray showed improved aeration. Otherwise no chest pain no worsening short of breath no nausea vomiting abdominal pain or diarrhea. Discussed with his family at bedside in detail. 12/23/2017 Patient had blood in the stool and hematemesis. Patient was transferred to MICU for close monitoring. Hemoglobin 7.2 today. Otherwise patient was seen by GI and scheduled for endoscopy tomorrow. Otherwise breathing status is stable. Patient has been afebrile. Denied any chest pain. Leg swelling improving. Also started on Cardizem drip due to A. fib with rapid ventricular Rate. 12/24/2017 Patient denied any worsening shortness of breath or chest pain. Continues to be monitored in the ICU. Otherwise hemoglobin is 8.7 today. Endoscopic today afternoon. No, no fever chills. No other acute overnight issues. 12/25/2017 Patient denied any worsening short of breath today. Otherwise hemoglobin dropped to 6.8. Patient is getting 1 unit of blood transfusion. Continued on IV Lasix. EGD showed actively losing Duodenal ulcer and gastritis. 12/27/2017 Patient remains on BiPAP. Discussed with the family regarding her overall functionality at home, patient appears to have decent functionality at home and her quality of life is recent without any significant memory problems. Patient is DO NOT RESUSCITATE plan is to continue present treatment once her sepsis improves hopefully patient will get better if not will discuss again regarding comfort care at that time. Patient is hard to arouse and is on BiPAP because of which I'm unable to get any review of systems today Objective - Vital Signs Vital signs: Vital Signs Temp 98.9 F 12/27/17 11:15 Pulse 76 12/27/17 15:34 Resp 21 12/27/17 11:15 BP 151/64 12/27/17 11:15 Pulse Ox 96 12/27/17 11:15 Intake & Output 12/26/17 12/27/17 12/27/17 18:59 06:59 18:59 Intake Total 570 90 0 Output Total 1505 2125 Balance - 0 Weight 74 kg Intake: IV 160 90 0.9 160 40 Piperacillin-Tazobactam 3 50 .375 gm In Dextrose/Water 1 50ml.bag @ 12.5 mls/hr IVPB Q8HR MIRIAM Rx#: [id number] Intake, IV Titration 50 Amount Piperacillin-Tazobactam 3 50 .375 gm In Dextrose/Water 1 50ml.bag @ 12.5 mls/hr IVPB Q8HR MIRIAM Rx#: [id number] Oral 360 0 Output: Urine 1505 2125 Uretheral ([place]) 800 Other: Voiding Method Indwelling Catheter Indwelling Catheter Indwelling Catheter # Voids 1 # Bowel Movements 0 - Exam PHYSICAL EXAMINATION: Patient is lying in the bed comfortably, no acute distress, sleeping not in respiratory distress and is on BiPAP HEENT: Normocephalic. Neck is supple. Pupils reactive. Nostrils clear. Oral cavity is moist. Ears reveal no drainage. Neck reveals no JVD, carotid bruits, or thyromegaly. CHEST EXAMINATION: Trachea is central. Symmetrical expansion. Bilateral diminished air entry basally and basilar crackles.. CARDIAC: Normal S1, S2 with no gallops. No murmurs ABDOMEN: Soft. Bowel sounds normal. No organomegaly. No abdominal bruits. Extremities: 2+ pedal edema bilaterally. Swelling and redness Redness improved. No clubbing or cyanosis Neurologically awake, alert, oriented x3 with well-coordinated movements. No focal deficits noted Skin: No rash or skin lesions. Psychiatric: Coperative. Nonsuicidal Musculoskeletal: No joint swelling or deformity. Normal range of motion. - Labs CBC & Chem 7: 12/27/17 05:56 12/27/17 11:43 Labs: Abnormal Lab Results - Last 24 Hours (Table) 12/26/17 12/26/17 12/27/17 Range/Units 17:41 20:56 05:56 RBC 2.76 L (3.80-5.40) m/uL Hgb 8.4 L (11.4-16.0) gm/dL Hct 26.9 L (34.0-46.0) % RDW 17.1 H (11.5-15.5) % Potassium (3.5-5.1) mmol/L Chloride (98-107) mmol/L Carbon Dioxide (22-30) mmol/L BUN (7-17) mg/dL Creatinine (0.52-1.04) mg/dL Glucose (74-99) mg/dL POC Glucose (mg/dL) 161 H 190 H (75-99) mg/dL Total Protein (6.3-8.2) g/dL Albumin (3.5-5.0) g/dL 12/27/17 12/27/17 12/27/17 Range/Units 05:56 06:19 11:41 RBC (3.80-5.40) m/uL Hgb (11.4-16.0) gm/dL Hct (34.0-46.0) % RDW (11.5-15.5) % Potassium 3.0 L* (3.5-5.1) mmol/L Chloride 92 L (98-107) mmol/L Carbon Dioxide 40 H* (22-30) mmol/L BUN 57 H (7-17) mg/dL Creatinine 1.10 H (0.52-1.04) mg/dL Glucose 112 H (74-99) mg/dL POC Glucose (mg/dL) 122 H 216 H (75-99) mg/dL Total Protein 5.2 L (6.3-8.2) g/dL Albumin 2.7 L (3.5-5.0) g/dL 12/27/17 Range/Units 11:43 RBC (3.80-5.40) m/uL Hgb (11.4-16.0) gm/dL Hct (34.0-46.0) % RDW (11.5-15.5) % Potassium 3.3 L (3.5-5.1) mmol/L Chloride (98-107) mmol/L Carbon Dioxide (22-30) mmol/L BUN (7-17) mg/dL Creatinine (0.52-1.04) mg/dL Glucose (74-99) mg/dL POC Glucose (mg/dL) (75-99) mg/dL Total Protein (6.3-8.2) g/dL Albumin (3.5-5.0) g/dL Microbiology - Last 24 Hours (Table) 12/26/17 01:45 Gram Stain - Preliminary Sputum Sputum Culture - Preliminary 12/21/17 08:54 Blood Culture - Final Blood No Growth after 144 hours 12/21/17 08:45 Blood Culture - Final Blood No Growth after 144 hours Assessment and Plan Plan: Assessment and Plan Assessment: Shortness of breath secondary to acute on chronic CHF with diastolic dysfunction. Ejection fraction 55-60% Acute blood loss anemia secondary to GI bleed due to duodenal ulcer and gastritis. Patient's anticoagulation was discontinued and patient is an anti- correlation for atrial fibrillation which is chronic. Tracheobronchitis and possible pneumonia for which patient is on Zosyn at this point of time patient was septic yesterday. Which is improving at this time Acute on chronic kidney disease stage III COPD with mild exacerbation Hypokalemia Altered mental status possible metabolic encephalopathy multifactorial. Improved Macrocytic anemia Elevated troponin. Unlikely acute coronary syndrome Chronic atrial fibrillation, presently rate controlled Diabetes type 2 Hypertension, History of MS Degenerative joint disease Parkinson's disease
[2017-12-27 16:40] LABS: Glucose,Whole Blood 137 mg/dL (75-99)
[2017-12-27 21:14] LABS: Glucose,Whole Blood 127 mg/dL (75-99)
[2017-12-27] MEDS ORDERED: POTASSIUM CHLORIDE 10 MEQ in SODIUM CHLORIDE 0.9% 100 ML IV ONE (23:30)
[2017-12-28] MEDS: PIPERACILLIN-TAZOBACTAM 3.375 GM in DEXTROSE/WATER 1 50ML.BAG IVPB SCH ×3 (01:18→14:31)
[2017-12-28] MEDS: FUROSEMIDE 10 MG/ML 4 ML VIAL IV SCH ×3 (01:18→14:31)
[2017-12-28] MEDS ORDERED: POTASSIUM CHLORIDE 10 MEQ in SODIUM CHLORIDE 0.9% 100 ML IV ONE (02:30)
[2017-12-28 04:48] LABS: Anisocytosis Slight; HCT 31.5 % (34.0-46.0); HGB 9.8 gm/dL (11.4-16.0); Hypochromasia Slight; MCH 30.2 pg (25.0-35.0); MCV 97.4 fL (80.0-100.0); Macrocytosis Slight; Mean Platelet Volume 7.3; Platelet Count 207 k/uL (150-450); RBC 3.24 m/uL (3.80-5.40); RDW 16.4 % (11.5-15.5); WBC 8.5 k/uL (3.8-10.6)
[2017-12-28 05:43] LABS: Anion Gap 9 mmol/L; Blood Urea Nitrogen 44 mg/dL (7-17); Calcium 8.2 mg/dL (8.4-10.2); Chloride 93 mmol/L (98-107); Glucose 123 mg/dL (74-99); Magnesium 1.8 mg/dL (1.6-2.3); Sodium 142 mmol/L (137-145)
[2017-12-28 05:45] LABS: Potassium 4.2 mmol/L (3.5-5.1)
[2017-12-28 05:56] LABS: Carbon Dioxide 40 mmol/L (22-30)
[2017-12-28] MEDS: INSULIN ASPART 100 UNIT/ML 1 ML 10 ML VIAL SQ SCH ×3 (06:14→16:44)
[2017-12-28 06:38] LABS: Glucose,Whole Blood 138 mg/dL (75-99)
[2017-12-28] MEDS: NITROGLYCERIN OINT 1 INCH/GM PACKET TOPICAL SCH ×3 (07:40→16:44)
[2017-12-28] MEDS: IPRATROPIUM-ALBUTEROL 3 ML NEB INHALATION SCH ×3 (07:43→16:07)
[2017-12-28] MEDS: SYMBICORT 160-4.5 MCG INHALER INHALATION SCH (07:44)
[2017-12-28] MEDS: MULTIVITAMINS, THERA 1 EACH TAB PO SCH (08:08)
[2017-12-28] MEDS: METOPROLOL TARTRATE 25 MG TAB PO SCH (08:08)
[2017-12-28] MEDS: FOLIC ACID 1 MG TAB PO SCH (08:08)
[2017-12-28] MEDS: CARBIDOPA-LEVODOPA 25-100 MG 1 EACH TAB PO SCH (08:08)
[2017-12-28] MEDS: AMANTADINE HCL 100 MG CAP PO SCH (08:08)
[2017-12-28] MEDS: THIAMINE 100 MG TAB PO SCH (08:09)
[2017-12-28] MEDS: PANTOPRAZOLE 40 MG/10 ML VIAL IVP SCH (08:10)
[2017-12-28] MEDS: MAGNESIUM SULFATE-D5W PMX 1 GM in DEXTROSE/WATER 1 100ML.BAG IVPB SCH ×2 (08:17→09:22)
--- NOTE | 2017-12-28 08:41 | XR ---
EXAMINATION TYPE: XR chest 1V portable DATE OF EXAM: 12/28/2017 COMPARISON: Prior chest x-ray 12/28/2017 HISTORY: Pneumonia, congestive heart failure TECHNIQUE: Single frontal view of the chest is obtained. FINDINGS: There is some improvement in aeration. Heart size is likely stable, patient is rotated. Th ere are overlying cardiac leads. No evident pneumothorax or sizable effusion. Right hemidiaphragm is elevated. IMPRESSION: Some improvement in aeration is noted. Additional follow-up recommended.
--- NOTE | 2017-12-28 10:14 | CDI ---
Last Revision, October 2017 Documentation Clarification Form Date: 12/28/2017 9:54:00 AM From: Josefa Mays RN Admit Date: 12/17/2017 3:37:00 PM Patient Name: Vanessa Kim Visit Number: [id number] ATTENTION: The Clinical Documentation Specialists (CDI) and [facility] Coding Staff appreciate your assistance in clarifying documentation. Please respond to the clarification below the line at the bottom and electronically sign. The CDI & [facility] Coding staff will review the response and follow-up if needed. Please note: Queries are made part of the Legal Health Record. If you have any questions, please contact the author of this message via ITS. Dr. Ivan Starkey, History/Risk Factors: A-Fib, asthma, CAD, CHF, COOPD, DM, HTN, CA, DJD Clinical Indicators: labored, shallow, tachypnea respirations Patient is on BI-PAP Vital signs on admission: T 97.4, P 69, R 18, 107/57, 98% RA. oN 12/26 PT was put on High flow O2, pt is now on bipap Treatment: Bi-PAP Breathing tx: duoneb QID Continuous Pulse ox In your professional opinion, can you please clarify if these findings signify one of the following conditions? Acute Chronic Acute on Chronic Specificity: Respiratory Failure, further specify (if known): With hypercapnia? With hypoxia? Respiratory Distress Respiratory Insufficiency Other Diagnosis, please specify Unable to determine Please continue to document in your progress notes and discharge summary in order to capture severity of illness and risk of mortality. Include clinical findings that support your diagnosis. MTDD
[2017-12-28 10:53] VITALS: BMI 29.5
[2017-12-28] MEDS: SODIUM CHLORIDE 0.9% 1,000 ML IV SCH (11:53)
[2017-12-28 12:04] VITALS: BP 141/63; PULSE 82; RESP 24; TEMP 97.4
--- NOTE | 2017-12-28 12:18 | P.PN ---
Subjective Progress Note Date: 12/28/17 Pleasant 87-year-old female patient who spells with Dr. Sutherland in the office. She has a history of atrial fibrillation, coronary artery disease, prior AL, diastolic congestive heart failure, diabetes, hypertension and COPD. Presented to the emergency department with complaints of weakness, near syncope and progressively worsening shortness of breath with exertion as well as orthopnea and lower extremity edema. Chest x-ray on admission shows patchy density right medial lung base which may reflect developing infiltrate, small left basilar pleural effusion or pleural thickening noted. EKG showed atrial fibrillation with controlled ventricular response with nonspecific ST-T wave abnormalities similar to previous. Laboratory values are reviewed and showed potassium of 6.1 on admission with a BUN of 46 and creatinine 1.93. These were redrawn this morning with a potassium of 4.4, BUN 49 and creatinine 2.0. Her BNP is elevated at 14,100. She's had mild elevation of her troponins at 0.068, 0.125 and 0.113. She's had no complaints of chest discomfort. Old records from here were reviewed. Echocardiogram from July 2017 shows normal LV systolic function with ejection fraction between 55-60%, moderately enlarged RV, moderate aortic regurgitation, mild to moderate mitral regurgitation, moderate to severe tricuspid regurgitation and moderate to severe pulmonary hypertension. Upon examination, patient is resting comfortably in bed. Continues to complain of some mild orthopnea as her swelling and breathing are somewhat better overall. She continues to feel weak without dizziness or lightheadedness at this time. 12/20/2017 Patient was seen and examined this morning, feels well, eager to be discharged home today. Breathing is stable. Hemodynamically stable. 12/21/2017 Patient seen and examined today, answering questions appropriately, keeping her eyes closed states that she feels tired. Hemodynamically stable. 12/28/2017 Patient seen and examined this morning, unresponsive, BiPAP in place. Daughter is at bedside. Blood pressure 118/50 with a heart rate in the 60s. We will follow her along with you now on an as-needed basis only, please don't hesitate to call with any questions. Blood pressure 140/60 with a heart rate in the 80s , 97% on BiPAP. White blood cell count 8.5, hemoglobin 9.8, potassium 4.2, BUN 44, creatinine 0.9. Magnesium 1.8. Objective - Vital Signs Vital signs: Vital Signs Temp 97.4 F L 12/28/17 11:45 Pulse 82 12/28/17 11:45 Resp 24 12/28/17 11:45 BP 141/63 12/28/17 11:45 Pulse Ox 97 12/28/17 11:45 Intake & Output 12/27/17 12/28/17 12/28/17 18:59 06:59 18:59 Intake Total 0 Balance 0 Weight 68.5 kg 68.5 kg Intake: Oral 0 Other: Voiding Method Indwelling Catheter Indwelling Catheter # Voids 1 3 # Bowel Movements 0 - Exam PHYSICAL EXAMINATION: HEENT: Head is atraumatic, normocephalic. Pupils equal, round. Neck is supple. There is elevated jugular venous pressure. HEART EXAMINATION: Heart sounds regular, S1 and S2 normal. No murmur or gallop heard. CHEST EXAMINATION: Lungs reveal expiratory wheezing throughout. No chest wall tenderness is noted on palpation or with deep breathing. ABDOMEN: Soft, obese, nontender. Bowel sounds are heard. No organomegaly noted. EXTREMITIES: diminished peripheral pulses with evidence of 1+ peripheral edema and no calf tenderness noted. NEUROLOGIC patient is unresponsive. - Labs CBC & Chem 7: 12/28/17 04:23 12/28/17 04:23 Labs: Abnormal Lab Results - Last 24 Hours (Table) 12/27/17 12/27/17 12/27/17 Range/Units 11:43 16:30 19:08 RBC (3.80-5.40) m/uL Hgb (11.4-16.0) gm/dL Hct (34.0-46.0) % RDW (11.5-15.5) % Potassium 3.3 L 2.7 L* (3.5-5.1) mmol/L Chloride (98-107) mmol/L Carbon Dioxide (22-30) mmol/L BUN (7-17) mg/dL Glucose (74-99) mg/dL POC Glucose (mg/dL) 137 H (75-99) mg/dL Calcium (8.4-10.2) mg/dL 12/27/17 12/28/17 12/28/17 Range/Units 21:06 01:12 04:23 RBC (3.80-5.40) m/uL Hgb (11.4-16.0) gm/dL Hct (34.0-46.0) % RDW (11.5-15.5) % Potassium 3.0 L* (3.5-5.1) mmol/L Chloride 93 L (98-107) mmol/L Carbon Dioxide 40 H* (22-30) mmol/L BUN 44 H (7-17) mg/dL Glucose 123 H (74-99) mg/dL POC Glucose (mg/dL) 127 H (75-99) mg/dL Calcium 8.2 L (8.4-10.2) mg/dL 12/28/17 12/28/17 Range/Units 04:23 06:36 RBC 3.24 L (3.80-5.40) m/uL Hgb 9.8 L (11.4-16.0) gm/dL Hct 31.5 L (34.0-46.0) % RDW 16.4 H (11.5-15.5) % Potassium (3.5-5.1) mmol/L Chloride (98-107) mmol/L Carbon Dioxide (22-30) mmol/L BUN (7-17) mg/dL Glucose (74-99) mg/dL POC Glucose (mg/dL) 138 H (75-99) mg/dL Calcium (8.4-10.2) mg/dL Microbiology - Last 24 Hours (Table) 12/26/17 01:45 Gram Stain - Final Sputum Sputum Culture - Final 12/21/17 08:54 Blood Culture - Final Blood No Growth after 144 hours 12/21/17 08:45 Blood Culture - Final Blood No Growth after 144 hours Assessment and Plan Plan: Assessment: #1 acute and chronic diastolic congestive heart failure #2 pneumonia #3 urinary tract infection #4 chronic atrial fibrillation #5 acute renal failure Plan From cardiology's perspective, we'll follow this patient with you now on an as- needed basis only, please don't hesitate to call us with any questions. DNP note has been reviewed, I agree with a documented findings and plan of care. Patient was seen and examined.
[2017-12-28 12:38] LABS: Glucose,Whole Blood 159 mg/dL (75-99)
--- NOTE | 2017-12-28 13:21 | P.PN ---
Subjective Progress Note Date: 12/28/17 Principal diagnosis: Acute on chronic diastolic congestive heart failure Vanessa is a 87-year-old white female patient of Dr. Douglass, who presented to the emergency department on 12/27/2017 at 1321 with complaints of fatigue, weakness , difficulty walking, some wheezing and shortness of breath. was recently treated with an oral antibiotic for a urinary tract infection by her PCP. However her fatigue and weakness became progressively worse, and the family insisted that the patient go to the hospital for further evaluation and treatment. Patient was also having altered mental status status, with hallucinations and delirium. Brain CT on 12/17/2017 showed atrophy with. Ventricular white matter ischemic type changes. These changes were stable compared to previous exam on 07/20/2017. There were retention cysts versus air- fluid level right maxillary sinus. Chest x-ray from 12/17/2017 showed patchy density in the right medial lung base. Small left basilar pleural effusion or pleural thickening was noted. Twelve-lead EKG on 12/27/2017 showed atrial fibrillation with a rate of 63 bpm. Lab work showed WBC of 10.8, hemoglobin 11.1, INR is 2.2, patient is on Xarelto for her history of chronic atrial fibrillation. Patient was found to have acute kidney injury with BUN of 46, and creatinine of 1.93, and hyperkalemia of 6.1 present on admission. Troponins were elevated 3, and peaked at 0.125. Patient's proBNP was 14,100. Patient's urinalysis showed dark brown turbid urine with urine white blood cells at 163, and urine RBC and greater than 182. Patient was afebrile, her vitals remained stable throughout her stay, she is on room air, with O2 sat between 98-100 percent. Patient was started on Rocephin, Zithromax, IV Lasix, nebulized treatments and admitted for further management. The patient is seen again today 12/21/2017 in follow-up on the selective care unit. She is currently resting fairly comfortably in bed. He is disoriented to place and time. She is currently febrile at 100.7. No tachycardia. No tachypnea. Blood pressure stable. She is maintaining O2 saturations in the low 90s on 4 L/m per nasal cannula. Blood culture reveals no growth to date. Urine culture reveals no growth. No leukocytosis. Currently on azithromycin. Creatinine 1.45. Patient is seen again today 12/22/2017 in follow-up on the selective care unit. She is resting comfortably in bed. She is much more awake and alert today as compared to yesterday. She does have some continued shortness of breath. A loose nonproductive cough. She is maintaining good O2 saturations in the 90s on 3 L/m per nasal cannula. Temperature 100.3. Her blood cultures are revealing no growth. Urine culture revealed no growth. No leukocytosis. Hemoglobin 9.5. INR 1.8. Creatinine 1.20. She is maintained on diuretics. She is incontinent of urine. Patient was seen early this morning on 12/23/2017, she was transferred to the intensive care unit, patient was admitted 6 days ago with shortness of breath and congestive heart failure, she developed this morning bright red blood per rectum with lower abdominal discomfort. Patient has been on aspirin and Xarelto. And she has been constipated for the last 5 days. She also had one episode of blood-tinged emesis, and mild nosebleed in the last 24 hours. Her admission hemoglobin was 11.1, and this morning was noted to be 7.2. Patient is receiving 1 unit of packed RBCs, her INR on admission was 2.2, presently 1.8 , just before I saw the patient, had small dark burgundy bowel movement around 6 AM. Patient was noted to be tachycardic, and atrial fibrillation rate is ranging between 120 to 1:30, and she was otherwise hemodynamically stable. Considering the patient was on Xarelto, I recommended giving the patient prothrombin complex concentrate. In the meantime the patient will be given at least 2 units of packed RBCs. Patient was evaluated by GI, and at this point may or may not consider colonoscopy. All her labs were reviewed, her BUN is 66 creatinine is 1.30. Chest x-ray from yesterday showed mild improvement in her pulmonary vascular congestion. And small pleural effusion was noted Reevaluated today on 12/24/2017, patient remains in the treatment room in the intensive care unit, no further episodes of bleeding since yesterday.. Her last bowel movement was actually yesterday. Her hemoglobin today is 8.7, patient received only 2 unit of packed RBCs yesterday. Labs were all reviewed, BUN is up to 81 creatinine is 1.28, INR is 1.4 patient received prothrombin complex/k -centra yesterday because she was on Xarelto and she had significant bleeding. Heart rate seems to be also controlled, and the patient is hemodynamically stable. Patient is scheduled to undergo EGD today, and this will be done by Dr. Sutherland. Reevaluated today on 12/25/2017, no active bleeding is noted. Patient is hemodynamically stable. Remains off anticoagulation therapy, EGD yesterday showed duodenal ulcer, which was actively wheezing, the ulcer was injected with epinephrine, and cautery with a gold probe and good hemostasis was noted. Hemoglobin today is 7.8. Renal functioning is about the same compared to the last couple of days. BUN is 76 creatinine is 1.30. Patient is hemodynamically stable, relatively asymptomatic, I plan to transfer the patient out of the ICU back to [facility] on a monitor bed. Decision regarding her antiplatelet agent therapy will be decided upon by cardiology and gastroenterology on the case. Reevaluated today on 12/26/2017, patient is not having any further episodes of active GI bleeding, however the patient is developing worsening airspace disease in both lungs bilaterally. O2 saturation is also marginal, patient is now on a high flow nasal cannula. Hemoglobin is 7.9 WBC count is 7.1 electrolytes were reviewed creatinine is 1.3, BUN is 70. On physical examination, patient sounded quite congested, diffuse crackles and rhonchi and wheezes were noted bilaterally. Started the patient on Zosyn, I also recommended diuretics, and she will need incentive spirometry and increase her bronchodilators to more frequently. Continues to have good urine output, remains on Lasix 40 mg IV push every 8 hours. Patient was reevaluated today on 12/27/2017, she is presently on selective, hemoglobin is holding at 8.4, no active GI bleeding noted. Her potassium is low being corrected as per protocol. And her renal profile seems to be improving in spite of diuretics BUN is 57 creatinine is 1.10. Chest x-ray is consistent with pulmonary edema, with BNP level of 10,000. Possibility of underlying infiltrate/pneumonia is not entirely ruled out, but I felt it is probably less likely. In the meantime empirically the patient is on antibiotics for presumptive pneumonia. But she is also on Lasix 40 mg IV push every 8 hours. Early this morning the patient desaturated, and she was placed on 50% BiPAP. Seems to be much more comfortable on the BiPAP. The patient is seen again today 12/28/2017 on the selective care unit. She is less responsive today. She withdrawals to tactile stimuli. Her eyelids flutter but no real verbal response. She remains on BiPAP currently. Her family is at the bedside. They are requesting hospice consultation and comfort care. Objective - Vital Signs Vital signs: Vital Signs Temp 97.4 F L 12/28/17 11:45 Pulse 82 12/28/17 11:45 Resp 24 12/28/17 11:45 BP 141/63 12/28/17 11:45 Pulse Ox 97 12/28/17 11:45 Intake & Output 12/27/17 12/28/17 12/28/17 18:59 06:59 18:59 Intake Total 0 90 Balance 0 90 Weight 68.5 kg 68.5 kg Intake: Oral 0 90 Other: Voiding Method Indwelling Catheter Indwelling Catheter # Voids 1 3 # Bowel Movements 0 - Exam GENERAL EXAM: Currently utilizing BiPAP. Less responsive. HEAD: Normocephalic. EYES: Normal reaction of pupils, equal size. NOSE: Clear with pink turbinates. THROAT: No erythema or exudates. NECK: No masses, no JVD. CHEST: No chest wall deformity. LUNGS: Equal air entry with faint crackles in the posterior bases more so on the right CVS: S1 and S2 normal with no audible murmur, regular rhythm. ABDOMEN: No hepatosplenomegaly, normal bowel sounds, no guarding or rigidity. SPINE: No scoliosis or deformity SKIN: No rashes CENTRAL NERVOUS SYSTEM: Tone is normal in all 4 extremities. EXTREMITIES: There is no peripheral edema. No clubbing, no cyanosis. Peripheral pulses are intact. - Labs CBC & Chem 7: 12/28/17 04:23 12/28/17 04:23 Labs: Abnormal Lab Results - Last 24 Hours (Table) 12/27/17 12/27/17 12/27/17 Range/Units 16:30 19:08 21:06 RBC (3.80-5.40) m/uL Hgb (11.4-16.0) gm/dL Hct (34.0-46.0) % RDW (11.5-15.5) % Potassium 2.7 L* (3.5-5.1) mmol/L Chloride (98-107) mmol/L Carbon Dioxide (22-30) mmol/L BUN (7-17) mg/dL Glucose (74-99) mg/dL POC Glucose (mg/dL) 137 H 127 H (75-99) mg/dL Calcium (8.4-10.2) mg/dL 12/28/17 12/28/17 12/28/17 Range/Units 01:12 04:23 04:23 RBC 3.24 L (3.80-5.40) m/uL Hgb 9.8 L (11.4-16.0) gm/dL Hct 31.5 L (34.0-46.0) % RDW 16.4 H (11.5-15.5) % Potassium 3.0 L* (3.5-5.1) mmol/L Chloride 93 L (98-107) mmol/L Carbon Dioxide 40 H* (22-30) mmol/L BUN 44 H (7-17) mg/dL Glucose 123 H (74-99) mg/dL POC Glucose (mg/dL) (75-99) mg/dL Calcium 8.2 L (8.4-10.2) mg/dL 12/28/17 12/28/17 Range/Units 06:36 12:03 RBC (3.80-5.40) m/uL Hgb (11.4-16.0) gm/dL Hct (34.0-46.0) % RDW (11.5-15.5) % Potassium (3.5-5.1) mmol/L Chloride (98-107) mmol/L Carbon Dioxide (22-30) mmol/L BUN (7-17) mg/dL Glucose (74-99) mg/dL POC Glucose (mg/dL) 138 H 159 H (75-99) mg/dL Calcium (8.4-10.2) mg/dL Microbiology - Last 24 Hours (Table) 12/26/17 01:45 Gram Stain - Final Sputum Sputum Culture - Final 12/21/17 08:54 Blood Culture - Final Blood No Growth after 144 hours 12/21/17 08:45 Blood Culture - Final Blood No Growth after 144 hours Assessment and Plan Assessment: Impression: #1. Acute hypoxic respiratory failure secondary to an acute exacerbation of diastolic congestive heart failure. Now with some suspected superimposed pneumonia. #2. Acute sepsis related to acute urinary tract infection. Patient presented with progressive weakness, altered mental status, confusion, acute kidney injury , and evidence of dark brown turbid urine with multiple WBCs, and RBCs. Patient has been treated for a urinary tract infection on an outpatient basis by her PCP #3. History of bronchial asthma, with current exacerbation #4. Chronic persistent atrial fibrillation, on long-term anticoagulation with Xarelto #5. Acute kidney injury, creatinine on admission was 1.93, with BUN of 46, possibly related to acute tubular necrosis and hypoperfusion related to sepsis. #6. Hyperkalemia, serum potassium was 6.1, present on admission, improved, with IV Lasix, currently down to 4.2. #7. Non-anion gap metabolic acidosis, secondary to acute renal failure, related to sepsis #8. Chronic macrocytic anemia #9. Coronary artery disease, with history of myocardial infarction #10. Hypertension #11. DJD Plan: The patient was seen and evaluated by Dr. Starkey. The patient's family is at the bedside. They're requesting hospice referral and comfort care measures only. They wax her to be off the BiPAP and to not have any further interventions or treatments. He feels this is reasonable. We will put in a hospice referral. I, the cosigning physician, performed a history & physical examination of the patient. Lungs sounds crackles in the posterior bases more so on the right. Maintaining O2 saturations in the 90s on BiPAP. I discussed the assessment and plan of care with my nurse practitioner, Kalli Childs. I attest to the above note as dictated by her.
[2017-12-28] MEDS ORDERED: MORPHINE ORAL SOLN 10 MG/5 ML CUP PO PRN (14:16)
[2017-12-28] MEDS ORDERED: MORPHINE SULFATE 4 MG/ML SYRINGE IVP PRN (15:04)
--- NOTE | 2017-12-28 17:21 | P.DS ---
Providers Date of admission: 12/17/17 15:37 Attending physician: Patricia Murray Consults: 12/17/17 15:37 Consult Physician Routine Consulting Provider: Roberto Hunter Consult Reason/Comments: chf Do you want consulting provider notified?: Yes 12/19/17 11:12 Consult Physician Routine Consulting Provider: Brown Gilmore Consult Reason/Comments: pneumonia Do you want consulting provider notified?: Yes 12/22/17 14:42 Consult Physician Routine Consulting Provider: Radha Azevedo Consult Reason/Comments: CHF Do you want consulting provider notified?: Already Contacted 12/23/17 04:45 Consult Physician Routine Consulting Provider: Flor Hunter Consult Reason/Comments: Positive occult Do you want consulting provider notified?: Yes, Notify in am Primary care physician: [facility] Course: 87-year-old femalewith a history of atrial fibrillation, coronary artery disease , prior [place], diastolic congestive heart failure, diabetes, hypertension and COPD. Presented to the emergency department with complaints of weakness, near syncope and progressively worsening shortness of breath with exertion as well as orthopnea and lower extremity edema. Patient is currently being treated for acute on chronic CHF. On 12/21/2017 Patient is febrile this morning. Otherwise patient is confused and lethargic and could not provide any history. Still having leg swelling. Continued on IV diuresis. Blood cultures and urine cultures show no growth. Ceftriaxone has been discontinued. on azithromycin. 12/22/2017 Patient is still febrile today morning with T-max 100.2. Otherwise clinically improving. Patient is more awake and oriented today looks swelling improved as well. Chest x-ray showed improved aeration. Otherwise no chest pain no worsening short of breath no nausea vomiting abdominal pain or diarrhea. Discussed with his family at bedside in detail. 12/23/2017 Patient had blood in the stool and hematemesis. Patient was transferred to MICU for close monitoring. Hemoglobin 7.2 today. Otherwise patient was seen by GI and scheduled for endoscopy tomorrow. Otherwise breathing status is stable. Patient has been afebrile. Denied any chest pain. Leg swelling improving. Also started on Cardizem drip due to A. fib with rapid ventricular Rate. 12/24/2017 Patient denied any worsening shortness of breath or chest pain. Continues to be monitored in the ICU. Otherwise hemoglobin is 8.7 today. Endoscopic today afternoon. No, no fever chills. No other acute overnight issues. 12/25/2017 Patient denied any worsening short of breath today. Otherwise hemoglobin dropped to 6.8. Patient is getting 1 unit of blood transfusion. Continued on IV Lasix. EGD showed actively losing Duodenal ulcer and gastritis. 12/27/2017 Patient remains on BiPAP. Discussed with the family regarding her overall functionality at home, patient appears to have decent functionality at home and her quality of life is recent without any significant memory problems. Patient is DO NOT RESUSCITATE plan is to continue present treatment once her sepsis improves hopefully patient will get better if not will discuss again regarding comfort care at that time. 12/28/2017 Discussed with the family and pulmonary discussed with the family as well. Family made addition of comfort care and hospice. Patient will be made general inpatient hospice. All medications were dyspnea and except for hospice and comfort medications. Please refer to my progress note from yesterday for her medical problems hospital course and treatment Plan - Discharge Summary Discharge Rx Participant: Yes New Discharge Prescriptions: Discontinued Darifenacin Hydrobromide [Enablex] 15 mg PO DAILY Metoprolol Tartrate [Lopressor] 25 mg PO DAILY Carbidopa/Levodopa [Sinemet 25-100 mg] 1 tab PO BID Amantadine HCl [Symmetrel] 100 mg PO BID Rivaroxaban [Xarelto] 15 mg PO DAILY Metoprolol Tartrate [Lopressor] 50 mg PO DAILY Potassium Chloride [Klor-Con 20] 20 meq PO BID glyBURIDE [Diabeta] 5 mg PO DAILY Ibuprofen [Motrin] 600 mg PO AC-BID No Action Furosemide [Lasix] 40 mg PO DAILY Gabapentin [Neurontin] See Taper PO DIRECTED HYDROcodone/APAP 7.5-325MG [[place] 7.5-325] 1 tab PO Q8H PRN PRN Reason: Pain Ipratropium-Albuterol Nebulize [Duoneb 0.5 mg-3 mg/3 ml Soln] 3 ml INHALATION RT-QID PRN PRN Reason: Shortness Of Breath Or Wheezing Discharge Medication List Furosemide [Lasix] 40 mg PO DAILY 07/20/17 [History] Gabapentin [Neurontin] See Taper PO DIRECTED 12/17/17 [History] HYDROcodone/APAP 7.5-325MG [[place] 7.5-325] 1 tab PO Q8H PRN 12/17/17 [History] Ipratropium-Albuterol Nebulize [Duoneb 0.5 mg-3 mg/3 ml Soln] 3 ml INHALATION RT -QID PRN 12/17/17 [History] Follow up Appointment(s)/Referral(s): Rafael Douglass III, MD [Primary Care Provider] - 1-2 days Brown Gilmore DO [Doctor of Osteopathic Medicine] - 1 Week [facility] Visiting Nurse, [NON-STAFF] - As Needed Discharge Disposition: DISCH TO HOSPICE MED FACILTY
== END 2017-12-28 18:12 | disposition hospice, inpatient (51) | DRG 871 ==
LOC: EC 13:21 → 6SEL 15:37 → 6ICU 12-23 07:12 → 6SEL 12-26 21:38
PROVIDERS: ADMIT Internal Medicine; ATTEND Internal Medicine
PROC: 30230N1 Transfusion of Nonautologous Red Blood Cells into Peripheral Vein, Open Approach (ICD-10-PCS; 2017-12-23)
PROC: 0W3P8ZZ Control Bleeding in Gastrointestinal Tract, Via Natural or Artificial Opening Endoscopic (ICD-10-PCS; principal; 2017-12-24 15:10)
DX: A41.9 Sepsis, unspecified organism (principal); K26.4 Chronic or unspecified duodenal ulcer with hemorrhage; J96.01 Acute respiratory failure with hypoxia; N17.0 Acute kidney failure with tubular necrosis; I50.33 Acute on chronic diastolic (congestive) heart failure; G93.41 Metabolic encephalopathy; J18.9 Pneumonia, unspecified organism; D68.32 Hemorrhagic disorder due to extrinsic circulating anticoagulants; E11.22 Type 2 diabetes mellitus with diabetic chronic kidney disease; I13.0 Hypertensive heart and chronic kidney disease with heart failure and stage 1 through stage 4 chronic kidney disease, or unspecified chronic kidney disease; N39.0 Urinary tract infection, site not specified; D62 Acute posthemorrhagic anemia; E87.1 Hypo-osmolality and hyponatremia; I48.1 Persistent atrial fibrillation; J44.0 Chronic obstructive pulmonary disease with (acute) lower respiratory infection; J44.1 Chronic obstructive pulmonary disease with (acute) exacerbation; E87.2 Acidosis; J45.901 Unspecified asthma with (acute) exacerbation; I24.9 Acute ischemic heart disease, unspecified; Z66 Do not resuscitate; Z51.5 Encounter for palliative care; E86.0 Dehydration; E87.5 Hyperkalemia; G20 Parkinson's disease; I27.20 Pulmonary hypertension, unspecified; I08.3 Combined rheumatic disorders of mitral, aortic and tricuspid valves; N18.3 Chronic kidney disease, stage 3 (moderate); K29.70 Gastritis, unspecified, without bleeding; J20.9 Acute bronchitis, unspecified; Y95 Nosocomial condition; I25.10 Atherosclerotic heart disease of native coronary artery without angina pectoris; R04.0 Epistaxis; E87.6 Hypokalemia; R32 Unspecified urinary incontinence; K59.00 Constipation, unspecified; M19.91 Primary osteoarthritis, unspecified site; N32.81 Overactive bladder; I25.2 Old myocardial infarction; D53.9 Nutritional anemia, unspecified; E66.9 Obesity, unspecified; Z68.38 Body mass index [BMI] 38.0-38.9, adult; T45.515A Adverse effect of anticoagulants, initial encounter; R26.2 Difficulty in walking, not elsewhere classified; Z79.01 Long term (current) use of anticoagulants; Z79.84 Long term (current) use of oral hypoglycemic drugs; Z79.1 Long term (current) use of non-steroidal anti-inflammatories (NSAID); Z79.899 Other long term (current) drug therapy; Z90.49 Acquired absence of other specified parts of digestive tract; Z85.828 Personal history of other malignant neoplasm of skin; Z85.038 Personal history of other malignant neoplasm of large intestine; Z96.653 Presence of artificial knee joint, bilateral; Z91.81 History of falling; Z87.81 Personal history of (healed) traumatic fracture; Z88.2 Allergy status to sulfonamides; Z88.8 Allergy status to other drugs, medicaments and biological substances
CPT/HCPCS: 36415; 43243; 43255; 43270; 70450; 71045; 71046; 80048; 80053; 81001; 82272; 82550; 82553; 83036; 83735; 83880; 84132; 84484; 85025; 85027; 85610; 85730; 86850; 86900; 86901; 86920; 87040; 87070; 87086; 87205; 87502; 93005; 93306; 94640; 94660; 94760; 96365; 96366; 96375; 99285

== ENCOUNTER 2017-12-28 18:15 | Inpatient (IN) | payer OTHER ==
[2017-12-28 18:22] VITALS: BMI 29.5
[2017-12-28] MEDS ORDERED: DOCUSATE 100 MG CAP PO PRN (18:22)
[2017-12-28] MEDS ORDERED: SCOPOLAMINE 1.5MG/72HR PATCH TRANSDERM PRN (18:22)
[2017-12-28] MEDS ORDERED: LORazepam 2 MG/ML INJ IV PRN (18:22)
[2017-12-28] MEDS ORDERED: ONDANSETRON 4 MG/2 ML VIAL IVP PRN (18:22)
[2017-12-28] MEDS ORDERED: ATROPINE OPHTH SOLN 1% 5ML BTL SUBLINGUAL PRN (18:22)
[2017-12-28] MEDS ORDERED: HALOPERIDOL 1 MG TAB PO PRN (18:22)
[2017-12-28] MEDS ORDERED: MORPHINE SULFATE (100 MG/2 ML) 100 MG in SODIUM CHLORIDE 0.9% 100 ML IV SCH (18:30)
[2017-12-28] MEDS ORDERED: HALOPERIDOL LACTATE 5 MG/ML 1 ML VIAL IM PRN (18:33)
[2017-12-28 22:21] VITALS: RESP 25
[2017-12-29 04:31] VITALS: PULSE 130
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
--- NOTE | 2017-12-29 12:35 | P.DS ---
Providers Date of admission: 12/28/17 18:15 Attending physician: Patricia Murray Primary care physician: Rafael Anderson [facility] Course: Patient is hospice , please refer to nursing documentation for time and date of Plan - Discharge Summary New Discharge Prescriptions: No Action Furosemide [Lasix] 40 mg PO DAILY Gabapentin [Neurontin] See Taper PO DIRECTED HYDROcodone/APAP 7.5-325MG [[place] 7.5-325] 1 tab PO Q8H PRN PRN Reason: Pain Ipratropium-Albuterol Nebulize [Duoneb 0.5 mg-3 mg/3 ml Soln] 3 ml INHALATION RT-QID PRN PRN Reason: Shortness Of Breath Or Wheezing Discharge Medication List Furosemide [Lasix] 40 mg PO DAILY 07/20/17 [History] Gabapentin [Neurontin] See Taper PO DIRECTED 12/17/17 [History] HYDROcodone/APAP 7.5-325MG [[place] 7.5-325] 1 tab PO Q8H PRN 12/17/17 [History] Ipratropium-Albuterol Nebulize [Duoneb 0.5 mg-3 mg/3 ml Soln] 3 ml INHALATION RT -QID PRN 12/17/17 [History] Discharge Disposition: - Preliminary Cause of Preliminary Cause of : Congestive heart failure chronic diastolic dysfunction
== END 2017-12-29 08:29 | disposition expired | DRG 293 ==
LOC: 6SEL 18:15
PROVIDERS: ADMIT Internal Medicine; ATTEND Internal Medicine
DX: I11.0 Hypertensive heart disease with heart failure (principal); G20 Parkinson's disease; R06.03 Acute respiratory distress; I48.91 Unspecified atrial fibrillation; J44.9 Chronic obstructive pulmonary disease, unspecified; I50.32 Chronic diastolic (congestive) heart failure; Z51.5 Encounter for palliative care; I25.10 Atherosclerotic heart disease of native coronary artery without angina pectoris; E11.9 Type 2 diabetes mellitus without complications; M19.90 Unspecified osteoarthritis, unspecified site; N32.81 Overactive bladder; I25.2 Old myocardial infarction; Z85.828 Personal history of other malignant neoplasm of skin; Z85.038 Personal history of other malignant neoplasm of large intestine; Z90.49 Acquired absence of other specified parts of digestive tract; Z91.81 History of falling; Z96.653 Presence of artificial knee joint, bilateral; Z87.19 Personal history of other diseases of the digestive system; Z90.89 Acquired absence of other organs; Z82.49 Family history of ischemic heart disease and other diseases of the circulatory system; Z79.899 Other long term (current) drug therapy; Z79.891 Long term (current) use of opiate analgesic; Z88.2 Allergy status to sulfonamides; Z88.8 Allergy status to other drugs, medicaments and biological substances